=== PATIENT | female | born 1950 | race Hispanic/Latino ===

== ENCOUNTER 2018-03-31 13:29 | Inpatient (IN) | payer OTHER, SELFPAY ==
[2018-03-31 14:16] LABS: Protime INR 1.03
[2018-03-31 14:22] LABS: Absolute Lymphocytes (CBC) 1.8 K/uL (0.7-4.9); Absolute Monocytes 0.4 K/uL (0.1-1.3); Absolute Neutrophil 4.4 K/uL (1.8-8.0); Basophils % 1.2 % (0-1.3); Eosinophils % 1.7 % (0-4.4); Hematocrit 33.9 % (36.0-45.0); MCH 29.4 pg (27.0-35.0); MCV 86.4 fL (80-100); Monocytes % 5.9 % (3.3-12.3); RBC Red Blood Cell Count 3.92 M/uL (3.86-4.86)
--- NOTE | 2018-03-31 14:23 | RAD REPORT ---
EXAM DESCRIPTION: RAD - Chest Single View - 03/31/2018 2:13 pm CLINICAL HISTORY: Shortness of breath, abdominal swelling COMPARISON: None. TECHNIQUE: AP portable chest image was obtained 1408 hours . FINDINGS: Lung volumes are low. Interstitial markings are prominent. Large pleural effusion is prese nt filling at least half of the left hemithorax. Moderately large right pleural effusion is present. Heart borders are fully obscured by the pleural effusion. Lung field atelectasis is likely evident. U pper lobe vasculature not grossly abnormal. Trachea is midline. No pneumothorax. No gross bony abnorm ality seen. No acute aortic findings suspected. IMPRESSION: Large left-side and moderately large right-sided pleural effusions with lung base atelec tasis. Pleural fluid obscures the heart.
[2018-03-31] MEDS ORDERED: FUROSEMIDE 20 MG/ 2ML VIAL ONE (14:35)
[2018-03-31 14:44] LABS: Albumin 2.7 g/dL (3.4-5.0); Bilirubin Direct 0.1 mg/dL (0-0.2); Bilirubin Total 0.5 mg/dL (0.2-1.0); Magnesium 2.4 mg/dL (1.8-2.4); Potassium 4.2 mmol/L (3.5-5.1); Protein, Total 6.4 g/dL (6.4-8.2)
[2018-03-31 14:50] LABS: Troponin (Emerg Dept Use Only) 0.86 ng/mL (0.0-0.045)
--- NOTE | 2018-03-31 15:26 | EKG ---
Test Date: 2018-03-31 Test Time: 14:17:33 Employment Security Officer: MARIA ELENA MEASUREMENT RESULTS: Intervals: Rate: 68 WI: 156 QRSD: 90 QT: 446 QTc: 474 [place]: P: 53 WI: 156 QRS: -4 T: 147 INTERPRETIVE STATEMENTS: Normal sinus rhythm T wave abnormality, consider lateral ischemia Prolonged QT Abnormal ECG No previous ECG available for comparison Electronically Signed On 03-31-18 15:25:11 CDT by Blaine Fernández
--- NOTE | 2018-03-31 15:40 | RAD REPORT ---
EXAM DESCRIPTION: CT - Thorax Wo Con - 03/31/2018 3:20 pm CLINICAL HISTORY: Abnormal chest film, shortness of breath COMPARISON: Portable chest March 31 TECHNIQUE: Axial 5 mm thick images of the chest were obtained without IV contrast. All CT scans are performed using dose optimization technique as appropriate and may include automated exposure control or mA/KV adjustment according to patient size. FINDINGS: Large left-sided pleural effusion is present occupying 40- 50% of the left hemithorax. Sli ghtly smaller right pleural effusion is present. Bilateral lower lobe complete atelectasis is present . There is partial atelectasis of each upper lobe than the right middle lobe. No focal mass or consol idation of the lung parenchyma. No pleural based mass. No pneumothorax. No abnormal mediastinal or hilar masses or lymphadenopathy seen. No gross aortic or pulmonary artery finding suspected. Mild cardiomegaly with minimal pericardial effusion. No chest wall mass or abnormal axillary lymphadenopathy. No endobronchial lesion. IMPRESSION: Large bilateral pleural effusions, left greater than right with no suspicious mass or in filtrate identifiable. Bilateral lower lobe complete atelectasis with partial atelectasis both upper lobes and the right mid dle lobe.
--- NOTE | 2018-03-31 16:01 | EDPHYS ---
Physician Documentation [facility] Name: Marilyn Cruz Age: 67 yrs Sex: Female : 1950 Arrival Date: 03/31/2018 Time: 13:32 Bed 16 Private MD: None, None ED Physician Andres Saunders HPI: 03/31 13:55 This 67 yrs old Female presents to ER via Wheelchair with complaints of cp Breathing Difficulty. 13:55 The patient has shortness of breath at rest. cp 13:55 Onset: The symptoms/episode began/occurred at an unknown time. and became worse today. cp Duration: The symptoms are continuous, and are steadily getting worse. Associated signs and symptoms: Pertinent negatives: chest pain, productive cough, fever, hemoptysis, vomiting. 13:55 Severity of symptoms: in the emergency department the symptoms are unchanged despite cp home interventions. The patient has been recently seen by a physician: discharged yesterday from [facility] after being admitted for 1 week with similar complaints. Historical: - Allergies: 13:39 No Known Allergies; hb - PMHx: 13:39 Diabetes - NIDDM; hb - PSHx: 13:39 None; hb - Immunization history:: Adult Immunizations up to date. - Social history:: Smoking status: Patient/guardian denies using tobacco. - Ebola Screening: : No symptoms or risks identified at this time. ROS: 14:00 Constitutional: Negative for body aches, chills, fever, poor PO intake. cp 14:00 Eyes: Negative for injury, pain, redness, and discharge. cp 14:00 ENT: Negative for drainage from ear(s), ear pain, sore throat, difficulty swallowing, difficulty handling secretions. 14:00 Cardiovascular: Positive for edema, orthopnea, Negative for chest pain, palpitations. 14:00 Respiratory: Positive for dyspnea on exertion, shortness of breath, at rest. Negative for cough, wheezing. 14:00 Abdomen/GI: Positive for abdominal pain, abdominal distension, Negative for vomiting, diarrhea, anorexia, dysphagia, black/tarry stool, rectal bleeding. 14:00 : Negative for urinary symptoms, vaginal bleeding. 14:00 Skin: Positive for ecchymosis, of the lower abdomen, Negative for cellulitis, diaphoresis. 14:00 Neuro: Negative for altered mental status, headache, syncope, near syncope, weakness. 14:00 All other systems are negative. Exam: 14:05 Constitutional: The patient appears alert, awake, non-diaphoretic, non-toxic, well cp developed, well nourished, in obvious distress, mildly distressed. 14:05 Head/Face: Normocephalic, atraumatic. cp 14:05 Eyes: Periorbital structures: appear normal, Pupils: equal, round, and reactive to light and accomodation, Extraocular movements: intact throughout, Conjunctiva: normal, no exudate, no injection, Sclera: no appreciated abnormality, Lids and lashes: appear normal, bilaterally. 14:05 ENT: External ear(s): are unremarkable, Ear canal(s): are normal, clear, TM's: bulging, is not appreciated, bilaterally, dullness, bilaterally, erythema, is not appreciated, bilaterally, Nose: is normal, Mouth: Lips: moist, Oral mucosa: pink and intact, moist, Posterior pharynx: Airway: no evidence of obstruction, patent, Tonsils: are normal in appearance, Uvula: midline, swelling, is not appreciated, erythema, is not appreciated, exudate, is not appreciated. 14:05 Neck: ROM/movement: is normal, is supple, without pain, no range of motions limitations, no meningismus, no nuchal rigidity. 14:05 Chest/axilla: Inspection: normal, Palpation: is normal, no crepitus, no tenderness. 14:05 Cardiovascular: Rate: normal, Rhythm: regular, Pulses: Pulses are 2+ in right radial artery and left radial artery. Edema: 2+ edema to level of bilateral lower legs, JVD: is not appreciated. 14:05 Respiratory: mild respiratory distress is noted, Respirations: labored breathing, that is mild, accessory muscle usage, is absent, splinting, is not noted, tachypnea, is not appreciated, Breath sounds: decreased breath sounds, that are moderate, are located in both bases, stridor, is not appreciated, wheezing: is not appreciated. 14:05 Abdomen/GI: Inspection: bruising, right lower quadrant and left lower quadrant, distension, that is moderate, Bowel sounds: active, all quadrants, Palpation: soft, in all quadrants, mild abdominal tenderness, in the right lower quadrant and left lower quadrant, rebound tenderness, is not appreciated, voluntary guarding, is not appreciated, involuntary guarding, is not appreciated. 14:05 Back: pain, is absent, ROM is normal. 14:05 Skin: cellulitis, is not appreciated, no rash present. 14:05 Neuro: Orientation: to person, place \T\ time. Mentation: lucid, able to follow commands, Cerebellar function: is grossly normal, Motor: moves all fours, strength is normal, Sensation: no obvious gross deficits. 14:23 ECG was reviewed by the Attending Physician. cp Vital Signs: 13:38 BP 148 / 97; Pulse 65; Resp 20; Temp 98.2; Pulse Ox 87% on R/A; Weight 81.19 kg; Height hj 5 ft. 1 in. (154.94 cm); Pain 0/10; 13:54 BP 190 / 67; Pulse 68; Resp 18; Pulse Ox 96% on 2 lpm NC; hj 14:23 BP 195 / 79; Pulse 69; Resp 18; Pulse Ox 97% on 2 lpm NC; hj 15:10 BP 145 / 80; Pulse 67; Resp 18; Pulse Ox 97% on 2 lpm NC; hj 15:35 BP 191 / 67; Pulse 62; Resp 18; Pulse Ox 97% on 2 lpm NC; hj 16:18 BP 192 / 65; Pulse 65; Resp 18; Pulse Ox 99% on 2 lpm NC; hj 17:03 BP 187 / 69; Pulse 61; Resp 18; Pulse Ox 97% on 2 lpm NC; hj 17:16 BP 183 / 65; Pulse 65; Resp 18; Pulse Ox 97% on 2 lpm NC; hj 18:07 BP 115 / 99; Pulse 65; Resp 18; Pulse Ox 97% on 2 lpm NC; hj 13:38 Body Mass Index 33.82 (81.19 kg, 154.94 cm) MDM: 13:40 Patient medically screened. cp 14:00 Differential diagnosis: CHF exacerbation, Chronic Obstructive Pulmonary Disease cp pneumonia, pulmonary edema, Pulmonary Embolism Unstable Angina. 15:58 Data reviewed: vital signs, nurses notes, lab test result(s), EKG, radiologic studies, cp CT scan, plain films, and as a result, I will admit patient. Test interpretation: by ED physician or midlevel provider: ECG, plain radiologic studies. Counseling: I had a detailed discussion with the patient and/or guardian regarding: the historical points, exam findings, and any diagnostic results supporting the discharge/admit diagnosis, the presence of at least one elevated blood pressure reading (>120/80) during this emergency department visit, lab results, radiology results, the need for further work-up and treatment in the hospital. Physician consultation: Rekha Jamison MD was called at 15:59, was contacted at 15:59, regarding admission, to the telemetry unit. patient's condition. 03/31 13:53 Order name: Basic Metabolic Panel; Complete Time: 14:51 03/31 13:53 Order name: CBC with Diff; Complete Time: 14:50 03/31 13:53 Order name: LFT's; Complete Time: 14:51 03/31 13:53 Order name: Magnesium; Complete Time: 14:51 03/31 13:53 Order name: NT PRO-BNP; Complete Time: 14:51 03/31 13:53 Order name: PT-INR; Complete Time: 14:50 03/31 13:53 Order name: Troponin (emerg Dept Use Only); Complete Time: 14:51 03/31 16:21 Order name: CBC with Automated Diff [facility] 03/31 16:21 Order name: CBC with Automated Diff [facility] 03/31 16:21 Order name: Comprehensive Metabolic Panel [facility] 03/31 16:21 Order name: Comprehensive Metabolic Panel [facility] 03/31 16:21 Order name: Troponin I [facility] 03/31 16:21 Order name: Troponin I [facility] 03/31 16:40 Order name: Thyroid Stimulating Hormone [facility] 03/31 13:53 Order name: XRAY Chest (1 view); Complete Time: 14:50 03/31 13:53 Order name: EKG; Complete Time: 13:54 03/31 13:53 Order name: Cardiac monitoring; Complete Time: 13:53 03/31 13:53 Order name: EKG - Nurse/Tech; Complete Time: 14:03 03/31 13:53 Order name: IV Saline Lock; Complete Time: 13:54 03/31 14:51 Order name: CT Chest Wo Con; Complete Time: 15:44 cp 03/31 16:21 Order name: Thoracentesis [facility] 03/31 16:21 Order name: CONS Physician Consult [facility] 03/31 16:21 Order name: Consistent Carb (ADA) [address] EDMN 03/31 16:21 Order name: NPO EDMN 03/31 16:21 Order name: Echo with Doppler EDMN 03/31 13:53 Order name: Labs collected and sent; Complete Time: 14:00 03/31 13:53 Order name: O2 Per Protocol; Complete Time: 13:54 03/31 13:53 Order name: O2 Sat Monitoring; Complete Time: 13:54 EC:23 Rate is 68 beats/min. Rhythm is regular. NH interval is normal. QRS interval is normal. cp QT interval is normal. T waves are Inverted in leads aVL, V5, V6. Interpreted by me. Reviewed by me. Administered Medications: 14:28 Drug: Lasix 40 mg Route: IVP; Site: right antecubital; hj 14:33 Follow up: Response: No adverse reaction 15:54 Drug: Lovenox 1 mg/kg Route: Sub-Q; Site: right upper arm; hj 16:09 Follow up: Response: No adverse reaction hj 15:54 Drug: Aspirin Chewable Tablet 324 mg Route: PO; hj 16:10 Follow up: Response: No adverse reaction Disposition: 03/31/18 16:01 Hospitalization ordered by Rekha Jamison for Inpatient Admission. Preliminary diagnosis are Unspecified combined systolic (congestive) and diastolic (congestive) heart failure, Elevated Troponin. - Bed requested for Telemetry/MedSurg (Inpatient). - Status is Inpatient Admission. hj - Condition is Stable. - Problem is new. - Symptoms have improved. UTI on Admission? No Addendum: 04/04/2018 17:02 Co-signature as Attending Physician, Andres Saunders MD. g s Signatures: Dispatcher [employer] [facility] JohnieEvelina vizcarra bd Song Deng RN RN hj Page, Corey, PA PA cp Baxter, Heather, RN RN hb Starr, Gregory, MD MD Corrections: (The following items were deleted from the chart) 03/31 14:55 14:51 Thorax W/ Con+CT.RAD.BRZ ordered. [facility] EDMN 16:38 16:21 Thoracentesis ordered. [facility] 16:57 16:01 Hospitalization Ordered by Rekha Jamison MD for Inpatient Admission. Preliminary bd diagnosis is Unspecified combined systolic (congestive) and diastolic (congestive) heart failure; Elevated Troponin. Bed requested for Telemetry/MedSurg (Inpatient). Status is Inpatient Admission. Condition is Stable. Problem is new. Symptoms have improved. UTI on Admission? No. cp 18:51 16:57 03/31/2018 16:01 Hospitalization Ordered by Rekah Jamison MD for Inpatient Admission. Preliminary diagnosis is Unspecified combined systolic (congestive) and diastolic (congestive) heart failure; Elevated Troponin. Bed requested for Telemetry/MedSurg (Inpatient). Status is Inpatient Admission. Condition is Stable. Problem is new. Symptoms have improved. UTI on Admission? No. bd
--- NOTE | 2018-03-31 16:01 | ER ---
Nurse's Notes [facility] Name: Marilyn Cruz Age: 67 yrs Sex: Female : 1950 Arrival Date: 03/31/2018 Time: 13:32 Bed 16 Private MD: None, None Diagnosis: Unspecified combined systolic (congestive) and diastolic (congestive) heart failure;Elevated Troponin Presentation: 03/31 13:37 Presenting complaint: SOB and abdominal swelling x 1 week, worse over last 2 days. hb Denies cough/fever. Transition of care: patient was not received from another setting of care. Onset of symptoms was March 31, 2018. Risk Assessment: Do you want to hurt yourself or someone else? Patient reports no desire to harm self or others. Care prior to arrival: None. 13:37 Method Of Arrival: Wheelchair hb 13:37 Acuity: JAKOB 2 hb 13:42 Initial Sepsis Screen: Does the patient meet any 2 criteria? No. Patient's initial hj sepsis screen is negative. Does the patient have a suspected source of infection? No. Patient's initial sepsis screen is negative. Triage Assessment: 13:41 General: Appears in no apparent distress. uncomfortable, Behavior is calm, cooperative, hj appropriate for age. Respiratory: Reports labored breathing Onset: The symptoms/episode began/occurred 13:52 Pain: Denies pain. hj Historical: - Allergies: 13:39 No Known Allergies; hb - PMHx: 13:39 Diabetes - NIDDM; hb - PSHx: 13:39 None; hb - Immunization history:: Adult Immunizations up to date. - Social history:: Smoking status: Patient/guardian denies using tobacco. - Ebola Screening: : No symptoms or risks identified at this time. Screenin:41 Abuse screen: Denies threats or abuse. Denies injuries from another. Nutritional hj screening: No deficits noted. Tuberculosis screening: No symptoms or risk factors identified. Fall Risk None identified. Assessment: 13:41 Cardiovascular: Rhythm is regular. Respiratory: Airway is patent Respiratory effort is hj labored, Respiratory pattern is 14:22 Reassessment: Patient and/or family updated on plan of care and expected duration. Pain hj level reassessed. Patient is alert, oriented x 3, equal unlabored respirations, skin warm/dry/pink. EKG in room;. 14:36 Reassessment: bed side commode provided at bed side;. hj 14:50 Reassessment: lab alert, trop- 0.86; relayed to provider;. hj 15:12 Reassessment: Patient and/or family updated on plan of care and expected duration. Pain hj level reassessed. Patient is alert, oriented x 3, equal unlabored respirations, skin warm/dry/pink. wheeled to CT; Patient denies pain at this time. 15:35 Reassessment: back from CT:. hj 16:18 Reassessment: Patient and/or family updated on plan of care and expected duration. Pain hj level reassessed. Patient is alert, oriented x 3, equal unlabored respirations, skin warm/dry/pink. Patient states feeling better. Patient states symptoms have improved. 16:38 Reassessment: respiratory paged for BIPAP per Dr. Jamison;. hj 17:00 Reassessment: Patient and/or family updated on plan of care and expected duration. Pain hj level reassessed. Patient is alert, oriented x 3, equal unlabored respirations, skin warm/dry/pink. pt refused BIPAP per respiratory;. 17:15 Reassessment: Patient and/or family updated on plan of care and expected duration. Pain hj level reassessed. Patient is alert, oriented x 3, equal unlabored respirations, skin warm/dry/pink. started calling report and was told floor nurse to call back for report;. 17:30 Reassessment: called 2nd floor for report;. hj 17:45 Reassessment: called floor nurse for report; spoke with charge nurse;. hj 18:00 Reassessment: awaiting call from floor nurse;. hj 18:22 Reassessment: house sup to handle the situation;. hj 18:27 Reassessment: spoke with house sup; house sup to call back;. hj Vital Signs: 13:38 BP 148 / 97; Pulse 65; Resp 20; Temp 98.2; Pulse Ox 87% on R/A; Weight 81.19 kg; Height hj 5 ft. 1 in. (154.94 cm); Pain 0/10; 13:54 BP 190 / 67; Pulse 68; Resp 18; Pulse Ox 96% on 2 lpm NC; hj 14:23 BP 195 / 79; Pulse 69; Resp 18; Pulse Ox 97% on 2 lpm NC; hj 15:10 BP 145 / 80; Pulse 67; Resp 18; Pulse Ox 97% on 2 lpm NC; hj 15:35 BP 191 / 67; Pulse 62; Resp 18; Pulse Ox 97% on 2 lpm NC; hj 16:18 BP 192 / 65; Pulse 65; Resp 18; Pulse Ox 99% on 2 lpm NC; hj 17:03 BP 187 / 69; Pulse 61; Resp 18; Pulse Ox 97% on 2 lpm NC; hj 17:16 BP 183 / 65; Pulse 65; Resp 18; Pulse Ox 97% on 2 lpm NC; hj 18:07 BP 115 / 99; Pulse 65; Resp 18; Pulse Ox 97% on 2 lpm NC; hj 13:38 Body Mass Index 33.82 (81.19 kg, 154.94 cm) hj ED Course: 13:32 Patient arrived in ED. sb2 13:32 None, None is Private Physician. sb2 13:38 Triage completed. hb 13:39 Arm band placed on left wrist. hb 13:40 Jerry Melvin PA is PHCP. cp 13:40 Andres Saunders MD is Attending Physician. cp 13:41 Song Deng, ILENE is Primary Nurse. hj 13:42 Patient has correct armband on for positive identification. Placed in gown. Bed in low hj position. Call light in reach. Side rails up X 1. 13:52 Initial lab(s) drawn, by me. Inserted saline lock: 22 gauge in right antecubital area, hj using aseptic technique. Blood collected. 14:11 XRAY Chest (1 view) In Process Unspecified. EDMS 14:11 X-ray completed. Portable x-ray completed in exam room. jr1 14:33 EKG done, by meteorological technician. reviewed by Jerry MESSINA. sm3 15:04 Radiology exam delayed due to patient using bathroom at this time. vr 15:19 CT completed. Patient tolerated procedure well. Patient moved back from CT. nj 15:20 CT Chest Wo Con In Process Unspecified. EDMS 15:59 Rekha Jamison MD is Hospitalizing Provider. cp 18:50 No provider procedures requiring assistance completed. Patient admitted, IV remains in hj place. intact. Administered Medications: 14:28 Drug: Lasix 40 mg Route: IVP; Site: right antecubital; hj 14:33 Follow up: Response: No adverse reaction hj 15:54 Drug: Lovenox 1 mg/kg Route: Sub-Q; Site: right upper arm; hj 16:09 Follow up: Response: No adverse reaction hj 15:54 Drug: Aspirin Chewable Tablet 324 mg Route: PO; hj 16:10 Follow up: Response: No adverse reaction Outcome: 16:01 Decision to Hospitalize by Provider. cp 18:50 Admitted to Med/surg accompanied by tech, family with patient, via wheelchair, room hj 212, with oxygen, with chart, Report called to ILENE Petersen 18:50 Condition: stable 18:50 Instructed on the need for admit, Demonstrated understanding of instructions. 18:51 Patient left the ED. Signatures: Dispatcher [employer] EDMS France Alvarado Victoria vr Joaquin, Henry RN RN Jerry Melvin PA PA cp Baxter, Heather, RN RN Jevon Tello Sheri sb2 Hue Smith 3 Corrections: (The following items were deleted from the chart) 13:39 13:37 Presenting complaint: SOB x 1 week, worse over last 2 days. Denies cough/fever hb hb 13:57 13:41 Cardiovascular: Rhythm is [facility] 15:36 15:35 Pulse 62bpm; Resp 18bpm; Pulse Ox 97% 2 lpm Nasal Cannula; [facility] 15:56 13:38 BP 148 / 97; Pulse 65bpm; Resp 20bpm; Pulse Ox 87% RA; Temp 98.2F; Pain 0/10; hb 16:18 15:41 Blood Glucose: Notes=post D50 1/2 amp;, Blood Glucose Jhpduka=491 mg/dL. [facility]
[2018-03-31] MEDS ORDERED: ASPIRIN 81 MG CHEWABLE TABLET ONE (16:10)
[2018-03-31] MEDS ORDERED: ENOXAPARIN 80 MG/0.8 ML SQ ONE (16:10)
[2018-03-31] MEDS ORDERED: ACETAMINOPHEN 500 MG TAB PO PRN (16:11)
[2018-03-31] MEDS ORDERED: ONDANSETRON 4 MG/2 ML VIAL IV PRN (16:11)
[2018-03-31] MEDS ORDERED: D50W 25 GM/50 ML SYRINGE IV PRN (16:18)
[2018-03-31] MEDS ORDERED: GLUCAGON 1 MG/VIAL IM PRN (16:18)
[2018-03-31] MEDS ORDERED: ENOXAPARIN 30 MG/0.3 ML SQ SCH (17:00)
[2018-03-31] MEDS ORDERED: FUROSEMIDE 40 MG/4 ML VIAL IV SCH ×2 (17:00)
[2018-03-31] MEDS: ENOXAPARIN 30 MG/0.3 ML SQ SCH (18:00)
[2018-03-31] MEDS: INSULIN -REGULAR HUMAN 50 UNIT/0.5 ML ML SQ SCH ×2 (19:26→20:34)
[2018-03-31] MEDS ORDERED: HYDRALAZINE HCL 20 MG/ML VIAL IV ONE (19:31)
[2018-03-31 20:28] VITALS: BMI 35.7
[2018-03-31] MEDS: METOPROLOL TAR 25 MG TAB PO SCH (20:36)
[2018-03-31] MEDS: LOSARTAN POTASSIUM 50 MG TABLET PO SCH (20:40)
--- NOTE | 2018-04-01 03:56 | HP ---
Date of Admission: 03/31/2018 Primary Care Physician: The patient goes to the [facility]. Consultants: Dr. Fernández, Cardiology and Dr. Casanova, Pulmonology. Chief Complaint: Shortness of breath. Code Status: Full. History Of Present Illness: The patient is a 67-year-old female with past medical history of diabete s mellitus type 2, hypertension, congestive heart failure, hyperlipidemia, who was recently at [facility] for a week, discharged yesterday, comes in with shortness of breath and dyspnea upon exer tion. The patient states she is unable to lay flat. She states that she is not on any diuretics. T he patient's symptoms are constant, moderate, and progressively worsening. She also reports some per ipheral edema along with distention of her abdomen. Denies any chest pain. No fevers, chills, cough , or sputum production. The patient upon arrival was hypoxic at around 87%, placed on nasal cannula and improved to 97% on 2 L. Her workup did show troponin of 0.86. BNP was elevated at 5000. WBC wa s normal. Creatinine was elevated at 1.9 with unknown baseline, however, back in 2014 was normal cre atinine. Her imaging studies showed large bilateral pleural effusions. The patient was then referre d for admission. When seen in the ER, she was awake, alert, oriented x3, somewhat tearful and asking to have her fluid taken off. Otherwise, awake, alert, and oriented x3. Past Medical History: Diabetes mellitus type 2, essential hypertension, congestive heart failure, un known EF, hyperlipidemia. Past Surgical History: The patient denies any surgeries. Allergies: NO KNOWN DRUG ALLERGIES. Medications: List reviewed. Social History: The patient denies any tobacco use, alcohol use, or illicit drug use. The patient i s , independent in her activities of daily living. Family History: The patient denies any family history of diabetes or hypertension. Review of Systems: An 11-point system reviewed, negative except as per HPI. Physical Examination: Vital Signs: Blood pressure 148/97, respirations 20, pulse 65, temperature 98.2, O2 87% on room air, improved to 96% on 2 L via nasal cannula. General: Awake, alert, oriented x3, in some mild respiratory distress. HEENT: Normocephalic, atraumatic. PERRLA. EOMI. Moist mucous membranes. Oropharynx is clear. Po or dentition. Conjunctivae anicteric. Neck: Supple. JVD distention present. Trachea is midline. CV: S1, S2. No murmurs. Regular rate and rhythm. Peripheral pulses present. Respiratory: Diminished breath sounds bilateral bases. Some rales heard at the apices. No wheezing . No stridor. The patient is tachypneic, use of accessory muscles. Gastrointestinal: Abdomen is soft, nontender. Mild distention. Positive bowel sounds. No guarding or rigidity. Extremities: No clubbing, cyanosis. Peripheral edema is present bilaterally 2+ DP. No calf tendern ess. Neuro: Cranial nerves 2 through 12 intact grossly. No focal neurological deficit. Speech is normal . Strength is 5/5 bilateral upper and lower extremities. Speech is normal. Skin: No rashes. Normal skin turgor. The patient does have some ecchymosis in her abdomen from rec ent shots. Psych: Mood is depressed. Affect is congruent with mood. Insight and judgment are fair. Laboratory Data: Sodium 144, potassium 4.2, chloride 111, CO2 26, BUN 34, creatinine 1.9, glucose 13 5, calcium 8.3, magnesium 2.4. Troponin 0.86. BNP 5083. Albumin 2.7. WBC 6.8, H and H 11.5 and 33 .9, platelets 224. INR 1.03. CT scan of the chest personally reviewed shows large bilateral pleural effusions, left greater than right with no suspicious mass or infiltrate of identifiable bilateral l ower lobe complete atelectasis with partial atelectasis of both upper lobes and right middle lobe. C hest x-ray shows large left-sided and moderately large right-sided pleural effusions with lung base a telectasis, pleural fluid obscures the heart. EKG shows normal sinus rhythm, rate of 68, T-wave abno rmality, prolonged QT. Assessment And Plan: A 67-year-old female with: 1.Acute respiratory distress with hypoxia, improved with supplemental oxygen via nasal cannula. The patient is refusing BiPAP at this time. She has been counseled, understands risks. We will place o n continuous pulse ox and may need to be on BiPAP if her condition deteriorates regardless. This is secondary to volume overload from congestive heart failure. The patient had recent hospitalization i n [facility] for similar issues. 2.Acute congestive heart failure, likely diastolic dysfunction, unknown ejection fraction. We will obtain echocardiogram. Chest x-ray and CT shows large effusions. BNP is elevated. We will start on congestive heart failure guidelines. Continue Lasix IV. We will hold off on SHAMIKA inhibitor due to e levated creatinine, which may be acute. 3.Acute versus pqmvy-ww-lpanmew kidney injury. Avoid NSAIDs and nephrotoxins. May need Nephrology if does not improve. 4.Essential hypertension. Resume home medications as appropriate. 5.Diabetes mellitus type 2 with hyperglycemia, non-insulin requiring. We will continue Accu-Cheks. 6.Elevated troponin level secondary to demand mismatch and acute congestive heart failure. Dr. Anna bundy has been consulted. We will repeat troponin level and monitor. No acute ST-elevation on EKG. 7.Bilateral large pleural effusions secondary to congestive heart failure. Dr. Casanova consulted, does not recommend thoracentesis at this time. We will continue to monitor with serial x-ray. Stric t I and Os, daily weights. The patient is unable to ambulate due to significant dyspnea upon exertio n. We will place Canales catheter for accurate I's and O's. We will discontinue in the next 24 to 48 hours. 8.Gastrointestinal and deep venous thrombosis prophylaxis with PPI and Lovenox renally dosed. Plan: Admit the patient to Med-Surg, place as inpatient. /RENÉ Voice ID: [id number]
[2018-04-01 05:23] LABS: Absolute Lymphocytes (CBC) 1.5 K/uL (0.7-4.9); Absolute Monocytes 0.4 K/uL (0.1-1.3); Absolute Neutrophil 4.8 K/uL (1.8-8.0); Basophils % 1.3 % (0-1.3); Eosinophils % 2.2 % (0-4.4); Hematocrit 32.1 % (36.0-45.0); MCH 30.5 pg (27.0-35.0); MCV 87.2 fL (80-100); MPV 9.5 fL (7.6-11.3); Monocytes % 5.2 % (3.3-12.3); RBC Red Blood Cell Count 3.68 M/uL (3.86-4.86)
[2018-04-01 05:39] LABS: Albumin 2.5 g/dL (3.4-5.0); Bilirubin Total 0.5 mg/dL (0.2-1.0)
[2018-04-01 05:55] LABS: Thyroid Stimulating Hormone 4.98 uIU/mL (0.360-3.740)
[2018-04-01] MEDS: METOPROLOL TAR 25 MG TAB PO SCH ×2 (06:20→17:47)
[2018-04-01] MEDS: INSULIN -REGULAR HUMAN 50 UNIT/0.5 ML ML SQ SCH ×4 (07:30→21:00)
[2018-04-01 07:40] LABS: Urine Appearance CLEAR; Urine Bilirubin NEGATIVE (NEG); Urine Blood TRACE (NEG); Urine Color YELLOW; Urine Glucose NEGATIVE (NEG); Urine Protein 2+ (NEG); Urine Urobilinogen 0.2 mg/dL (0.2-1.0)
[2018-04-01 07:48] LABS: Urine Microscopic Reflex ORDER UMIC
[2018-04-01 07:57] LABS: Urine Bacteria <20 /HPF (<20); Urine Culture Reflex Order NOT NEEDED; Urine RBC <5 /HPF (NONE SEEN)
[2018-04-01] MEDS: LEVOTHYROXINE SOD 0.025 MG TAB PO SCH (08:54)
[2018-04-01] MEDS: LOSARTAN POTASSIUM 50 MG TABLET PO SCH (08:55)
[2018-04-01] MEDS: VALSARTAN 80 MG TAB PO SCH (09:29)
[2018-04-01] MEDS: FUROSEMIDE 40 MG/4 ML VIAL IV SCH ×2 (09:30→16:36)
[2018-04-01] MEDS ORDERED: PNEUMOCOCCAL VACCINE 0.5 ML IMVAC ONE (12:00)
--- NOTE | 2018-04-01 13:31 | CON ---
Ms. Cruz comes to the hospital, very frustrated. She wants to get rid of the fluid she sees in her legs. She spent more than a week at a hospital in [place], apparently left the hospital with some m edications, but does not seem to be taking those. She is very adamant that her heart is fine, she ju st accumulates fluid. I am not sure what the exact situation is, but I believe the patient has some mental impairment of some kind, emotional or psychiatric or perhaps organic that makes her very maggy nt to insist that her heart is fine. It really looks like she has a cardiomyopathy with cardiomegaly , bilateral pleural effusions, congestive heart failure on her x-ray. She has elevated BNP, elevated troponins, all are consistent with a lot of myocardial strain, so the medical diagnosis is heart chari kaityre. The patient refuses most tests. She does agree to get diuretics intravenously and she agrees to get an echocardiogram. 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 We are unable to tell if she has had an echo or cardiac cath or any similar tests on her heart while she was at the hospital at [facility]. I thin k there is an effort to get records from [facility]. If possible that would be very useful. Thank you very much for your kind referral of Ms. Cruz. I will follow her with you. GIFTY Voice ID: [id number] Report ID: [id number]
--- NOTE | 2018-04-01 15:53 | PN ---
Date of Progress Note: 04/01/2018 Subjective: The patient seen and examined. Chart reviewed and case discussed with RN and Dr. Cedeno as well as Dr. Casanova. The patient is doing better, was refusing BiPAP yesterday and today keeps asking for her fluid to be taken off including her lunch to be taken off. I explained to her that we are diuresing her with Lasix. She voiced understanding. All questions answered. Treatment plan ex plained. Review of Systems: Negative except as above. Medications: List reviewed. Physical Examination: Vital Signs: Temperature 98.5, heart rate 56, blood pressure 181/74, respirations 20, OS 98% on 2 L via nasal cannula. General: Awake, alert, oriented x3. Some mild respiratory distress. Elderly female, obese. CV: S1, S2. No murmurs. Pulses present. Respiratory: Diminished breath sounds bilaterally. No wheezing. The patient is slightly tachypneic . Gastrointestinal: Abdomen is soft, nontender, nondistended. Positive bowel sounds. No guarding o r rigidity. Extremities: No clubbing, cyanosis. The patient does have edema of the lower extremities 2+ bilater ally. Neurologic: Nonfocal. Psych: Mood is labile. Affect is somewhat dysphoric. Insight and judgment are fair. Laboratory Data: Sodium 142, potassium 4, chloride 110, CO2 23, BUN 31, creatinine 1.7, glucose 96, calcium 8.3. Troponin 0.86, 0.79, albumin 2.5. TSH is 4.98, free T4 0.82. WBC 6.9, H and H 11.2, 3 2.1, platelets 201. Assessment And Plan: A 67-year-old female with: 1.Acute respiratory distress with hypoxia, improving with supplemental oxygen. The patient refusing BiPAP at this time. Appreciate Dr. Casanova's input. Likely secondary to congestive heart failure exacerbation and pleural effusions. 2.Acute congestive heart failure, likely diastolic dysfunction, unknown ejection fraction. Cardiogr am pending. The patient does have some large effusions bilaterally. We will continue with IV diures is, congestive heart failure guidelines. 3.Acute versus [id number]-wfggfbr kidney injury. Avoid NSAIDs and nephrotoxins. Creatinine is improv ing. We will continue to monitor. 4.Elevated troponin level likely secondary to acute congestive heart failure exacerbation. Apprecia te Cardiology input. Repeat level trending down. 5.Essential hypertension, uncontrolled. We will adjust medications. 6.Diabetes mellitus type 2 with hyperglycemia, non-insulin requiring. Continue Accu-Chek. 7.Bilateral large pleural effusions secondary to congestive heart failure. Continue diuresis. Lucy tor fluid balance. 8.Gastrointestinal and deep venous thrombosis prophylaxis with PPI and Lovenox, renally dosed. SA/MODL Voice ID: [id number] Report ID: [id number]
[2018-04-01] MEDS: ENOXAPARIN 30 MG/0.3 ML SQ SCH (16:38)
[2018-04-02] MEDS: LEVOTHYROXINE SOD 0.025 MG TAB PO SCH (05:13)
[2018-04-02] MEDS: METOPROLOL TAR 25 MG TAB PO SCH ×2 (05:14→17:51)
[2018-04-02 05:17] LABS: Absolute Lymphocytes (CBC) 2.2 K/uL (0.7-4.9); Absolute Monocytes 0.5 K/uL (0.1-1.3); Absolute Neutrophil 3.3 K/uL (1.8-8.0); Basophils % 1.1 % (0-1.3); Eosinophils % 2.2 % (0-4.4); Hematocrit 29.2 % (36.0-45.0); Lymphocytes % 35.3 % (15.3-44.8); Monocytes % 7.4 % (3.3-12.3)
[2018-04-02 05:36] LABS: Albumin 2.2 g/dL (3.4-5.0); Bilirubin Total 0.5 mg/dL (0.2-1.0); Potassium 3.6 mmol/L (3.5-5.1); Protein, Total 5.2 g/dL (6.4-8.2)
[2018-04-02] MEDS: INSULIN -REGULAR HUMAN 50 UNIT/0.5 ML ML SQ SCH ×4 (07:30→21:00)
[2018-04-02] MEDS: FUROSEMIDE 40 MG/4 ML VIAL IV SCH ×2 (08:12→16:39)
[2018-04-02] MEDS: VALSARTAN 80 MG TAB PO SCH (08:12)
--- NOTE | 2018-04-02 08:28 | P.CNS ---
Date of Consult: 04/01/18 Reason for Consult: Bilateral pleural effusions possible CHF Chief Complaint: Shortness of breath History of Present Illness: Patient is 67 years of age a pleasant lady with diabetes hypertension admitted with worsening dyspnea for the past 2 days admitted with hypoxemia and bilateral pleural effusions. Patient speaks limited Telugu also complaining of some orthopnea as not take any diuretics at home also complain of some swelling of her legs doing much better since admission and since she was given diuretics and BiPAP at the time of my evaluation patient was doing well off oxygen History of diabetes and hypertension T Allergies No Known Drug Allergies Allergy (Verified 03/31/18 19:42) Unknown Home Medications: Carvedilol [Coreg*] 1 tab PO DAILY 04/02/18 Dapagliflozin Propanediol [Farxiga] 1 tab PO DAILY 04/02/18 Lisinopril/Hydrochlorothiazide [Zestoretic 20-25 mg Tablet] 1 tab PO DAILY 04/02 - Past Medical/Surgical History Diabetic: No -: DM -: HTN - Social History Alcohol use: No CD- Drugs: No Caffeine use: Yes Place of Residence: Home Review of Systems 10-point ROS is otherwise unremarkable Physical Examination Temp Pulse Resp BP Pulse Ox 98.2 F 64 18 195/79 H 96 04/02/18 03:45 04/02/18 08:12 04/02/18 03:45 04/02/18 08:12 04/02/18 03:45 General: Alert, Oriented x3 HEENT: Atraumatic Neck: Supple Respiratory: Clear to auscultation bilaterally Cardiovascular: No edema, Normal S1 S2 Gastrointestinal: Normal bowel sounds, Soft and benign - Problems (1) CHF (congestive heart failure) Onset Date: 04/01/18 Current Visit: Yes Status: Acute Plan: Patient is 67 years of age admitted with acute shortness of breath bilateral pleural effusions which are roughly symmetrical most likely this is congestive heart failure echocardiogram is pending continue with diuretics BiPAP as needed thoracenteses not indicated at this present moment patient also has renal failure BNP elevated mild normocytic anemia patient probably has diabetic nephropathy renal ultrasound nephrology consult ovoid Domingo inhibitors for now patient's blood pressure is elevated at [facility] patient's renal function is improving Qualifiers: Heart failure type: unspecified
--- NOTE | 2018-04-02 08:36 | P.CNS ---
Date of Consult: 04/02/18 Reason for Consult: KEY/ CKD Requesting Physician: Rekha Jamison Chief Complaint: Shortness of breath History of Present Illness: The patient is a 67-year-old female with past medical history of diabetes mellitus type 2, hypertension, congestive heart failure, hyperlipidemia, who was recently at [facility] for a week, discharged yesterday, comes in with shortness of breath and dyspnea upon exertion. The patient states she is unable to lay flat. She states that she is not on any diuretics. The patient' s symptoms are constant, moderate, and progressively worsening. She also reports some peripheral edema along with distention of her abdomen. Denies any chest pain. No fevers, chills, cough, or sputum production. The patient upon arrival was hypoxic at around 87%, placed on nasal cannula and improved to 97% on 2 L. Her workup did show troponin of 0.86. BNP was elevated at 5000. WBC was normal. Creatinine was elevated at 1.9 with unknown baseline, however, back in 2014 was normal creatinine. Her imaging studies showed large bilateral pleural effusions. The patient was then referred for admission. When seen in the ER, she was awake, alert, oriented x3, somewhat tearful and asking to have her fluid taken off. 13:55 This 67 yrs old Female presents to ER via Wheelchair with complaints of cp Breathing Difficulty. 13:55 The patient has shortness of breath at rest. cp 13:55 Onset: The symptoms/episode began/occurred at an unknown time. and became worse today. cp Duration: The symptoms are continuous, and are steadily getting worse. Associated signs and symptoms: Pertinent negatives: chest pain, productive cough, fever, hemoptysis, vomiting. 13:55 Severity of symptoms: in the emergency department the symptoms are unchanged despite cp home interventions. The patient has been recently seen by a physician: discharged yesterday from [facility] after being admitted for 1 week with similar complaints. Allergies No Known Drug Allergies Allergy (Verified 03/31/18 19:42) Unknown Home medications list reviewed: Yes Home Medications: Carvedilol [Coreg*] 1 tab PO DAILY 04/02/18 Dapagliflozin Propanediol [Farxiga] 1 tab PO DAILY 04/02/18 Lisinopril/Hydrochlorothiazide [Zestoretic 20-25 mg Tablet] 1 tab PO DAILY 04/02 - Past Medical/Surgical History Diabetic: No -: DM -: HTN - Social History Alcohol use: No CD- Drugs: No Caffeine use: Yes Place of Residence: Home Review of Systems 10-point ROS is otherwise unremarkable General: Weakness, Malaise Respiratory: SOB with Excertion Cardiovascular: Edema Neurological: Weakness Physical Examination Temp Pulse Resp BP Pulse Ox 98.2 F 64 18 195/79 H 96 04/02/18 03:45 04/02/18 08:12 04/02/18 03:45 04/02/18 08:12 04/02/18 03:45 General: Oriented x3, Cooperative HEENT: Normocephalic, Mucous membr. moist/pink Neck: Supple Respiratory: Clear to auscultation bilaterally, Normal air movement Cardiovascular: Regular rate/rhythm, No rubs, Edema Gastrointestinal: Soft and benign, Non-distended, No guarding Musculoskeletal: No clubbing, No contractures Integumentary: No rashes, No cyanosis Neurological: Normal speech Blood work reviewed in the chart. Hgb 10.2; Cr 1.70; Alb 2.2 Imagings Data: EXAM DESCRIPTION: CT - Thorax Wo Con - 03/31/2018 3:20 pm CLINICAL HISTORY: Abnormal chest film, shortness of breath COMPARISON: Portable chest March 31 TECHNIQUE: Axial 5 mm thick images of the chest were obtained without IV contrast. All CT scans are performed using dose optimization technique as appropriate and may include automated exposure control or mA/KV adjustment according to patient size. FINDINGS: Large left-sided pleural effusion is present occupying 40- 50% of the left hemithorax. Slightly smaller right pleural effusion is present. Bilateral lower lobe complete atelectasis is present. There is partial atelectasis of each upper lobe than the right middle lobe. No focal mass or consolidation of the lung parenchyma. No pleural based mass. No pneumothorax No abnormal mediastinal or hilar masses or lymphadenopathy seen. No gross aortic or pulmonary artery finding suspected. Mild cardiomegaly with minimal pericardial effusion. No chest wall mass or abnormal axillary lymphadenopathy. No endobronchial lesion. IMPRESSION: Large bilateral pleural effusions, left greater than right with no suspicious mass or infiltrate identifiable. Bilateral lower lobe complete atelectasis with partial atelectasis both upper lobes and the right middle lobe. HEIGHT: 5 ft 0 in WEIGHT: 180 lb 1.6 oz DATE OF STUDY: 04/02/[address]: Rekha Jamison MD 2-DIMENSIONAL: YES M.MODE: YES DOPPLER: YES COLOR FLOW: YES TDS: NO PORTABLE: NO DEFINITY: NO BUBBLE STUDY: NO DIAGNOSIS: CONGESTIVE HEART FAILURE CARDIAC HISTORY: CATHERIZATION: NO SURGERY: NO PROSTHETIC VALVE: NO PACEMAKER: NO MEASUREMENTS (cm) DIASTOLIC (NORMALS) SYSTOLIC (NORMALS) IVSd 1.2 (0.6-1.2) LA Diam 3.7 (1.9-4.0) LVEF 77% LVIDd 4.9 (3.5-5.7) LVIDs 2.6 (2.0-3.5) %FS 46% LVPWd 1.3 (0.6-1.2) Ao Diam 2.6 (2.0-3.7) 2 DIMENSIONAL ASSESSMENT: RIGHT ATRIUM: NORMAL LEFT ATRIUM: NORMAL RIGHT VENTRICLE: NORMAL LEFT VENTRICLE: MILD LEFT VENTRICULAR HYPERTROPHY TRICUSPID VALVE: NORMAL MITRAL VALVE: NORMAL PULMONIC VALVE: NORMAL AORTIC VALVE: SCLEROSIS PERICARDIAL EFFUSION: NONE AORTIC ROOT: NORMAL LEFT VENTRICULAR WALL MOTION: LEFT VENTRICULAR COMPLIANCE. DOPPLER/COLOR FLOW: MILD TRICUSPID REGURGITATION. COMMENTS: MILD TRICUSPID REGURGITATION. AORTIC SCLEROSIS. LEFT VENTRICULAR HYPERTROPHY. DECREASED LEFT VENTRICULAR COMPLIANCE. NORMAL EJECTION FRACTION. EXAM DESCRIPTION: US - Renal Ultrasound-Complete - 04/02/2018 9:48 am CLINICAL HISTORY: Renal failure COMPARISON: CT imaging January 2015 FINDINGS: The right kidney measures 9.8 x 4.8 x 5.9 cm. The left kidney measures 11.3 x 6.0 x 5.6 cm. Renal cortical thickness and echogenicity are normal. No hydronephrosis or suspicious renal mass. No bladder wall thickening or mass. No intraluminal stone or mass. IMPRESSION: No hydronephrosis or suspicious renal mass. Conclusions/Impression: A/ KEY likely CRS. CKD III with proteinuria. DM II with CKD. HTN with CKD. A/C Diastolic CHF. Anemia in chronic illness. Hypocalcemia. Moderate Malnutrition. P/ Continue current POC and Medications. Continue Lasix and start spironolactone. Give a dose of metolazone. No NSAIDs. Low sodium diet. AM labs. Daily weight. Thank you kindly for the consultation.
[2018-04-02] MEDS ORDERED: POTASSIUM CL SA 10 MEQ TAB PO ONE (08:47)
--- NOTE | 2018-04-02 09:46 | RAD REPORT ---
EXAM DESCRIPTION: Emery Greene And Anam (2 Views)04/02/2018 9:38 am CLINICAL HISTORY: Shortness of breath COMPARISON: 03/31/2018 FINDINGS: Bilateral pleural effusions appear mildly diminished in size. Bibasilar atelectasis is see n. Upper lobes are clear. Heart remains enlarged IMPRESSION: Decrease in size of moderate bilateral pleural effusions. Bibasilar atelectasis is seen
[2018-04-02] MEDS: SPIRONOLACTONE 25 MG TABLET PO SCH (10:06)
[2018-04-02] MEDS: AMLODIPINE 5 MG TAB PO SCH (10:07)
[2018-04-02] MEDS: METOLAZONE 5 MG TABLET PO SCH (10:07)
[2018-04-02] MEDS: VITAMIN D 5,000 UNIT CAP PO SCH (10:08)
--- NOTE | 2018-04-02 10:28 | RAD REPORT ---
EXAM DESCRIPTION: US - Renal Ultrasound-Complete - 04/02/2018 9:48 am CLINICAL HISTORY: Renal failure COMPARISON: CT imaging January 2015 FINDINGS: The right kidney measures 9.8 x 4.8 x 5.9 cm. The left kidney measures 11.3 x 6.0 x 5.6 c m. Renal cortical thickness and echogenicity are normal. No hydronephrosis or suspicious renal mass. No bladder wall thickening or mass. No intraluminal stone or mass. IMPRESSION: No hydronephrosis or suspicious renal mass. No other significant findings.
--- NOTE | 2018-04-02 14:43 | ECHO ---
HEIGHT: 5 ft 0 in WEIGHT: 180 lb 1.6 oz DATE OF STUDY: 04/02/[address]: Rekha Jamison MD 2-DIMENSIONAL: YES M.MODE: YES DOPPLER: YES COLOR FLOW: YES TDS: NO PORTABLE: NO DEFINITY: NO BUBBLE STUDY: NO DIAGNOSIS: CONGESTIVE HEART FAILURE CARDIAC HISTORY: CATHERIZATION: NO SURGERY: NO PROSTHETIC VALVE: NO PACEMAKER: NO MEASUREMENTS (cm) DIASTOLIC (NORMALS) SYSTOLIC (NORMALS) IVSd 1.2 (0.6-1.2) LA Diam 3.7 (1.9-4.0) LVEF 77% LVIDd 4.9 (3.5-5.7) LVIDs 2.6 (2.0-3.5) %FS 46% LVPWd 1.3 (0.6-1.2) Ao Diam 2.6 (2.0-3.7) 2 DIMENSIONAL ASSESSMENT: RIGHT ATRIUM: NORMAL LEFT ATRIUM: NORMAL RIGHT VENTRICLE: NORMAL LEFT VENTRICLE: MILD LEFT VENTRICULAR HYPERTROPHY TRICUSPID VALVE: NORMAL MITRAL VALVE: NORMAL PULMONIC VALVE: NORMAL AORTIC VALVE: SCLEROSIS PERICARDIAL EFFUSION: NONE AORTIC ROOT: NORMAL LEFT VENTRICULAR WALL MOTION: LEFT VENTRICULAR COMPLIANCE. DOPPLER/COLOR FLOW: MILD TRICUSPID REGURGITATION. COMMENTS: MILD TRICUSPID REGURGITATION. AORTIC SCLEROSIS. LEFT VENTRICULAR HYPERTROPHY. DECREASED LEFT VENTRICULAR COMPLIANCE. NORMAL EJECTION FRACTION. TECHNOLOGIST: JOJO PACHECO
--- NOTE | 2018-04-02 16:00 | PN ---
Date of Progress Note: 04/02/2018 Subjective: The patient seen and examined, chart reviewed and case discussed with RN and Dr. Fernández . The patient has some barrier to communication. Explained multiple times regarding her treatment p rambo and overall prognosis. The patient does not seem to understand that her heart is related to her pulmonary edema. The patient has been refusing the echocardiogram multiple times. Records have been requested from [facility] [place]. Review of Systems: Negative except as above. Medications: List reviewed. Physical Examination: Vital Signs: Blood pressure 195/79, respirations 18, temperature 98.2, heart rate 56, O2 96% on 2 L via nasal cannula. General: Awake, alert, oriented x3, not in acute distress. Elderly female, obese. CV: S1, S2. Regular rate and rhythm. Peripheral pulses present. Respiratory: Diminished breath sounds at the bases. No wheezing or stridor. Gastrointestinal: Abdomen is soft, nontender, nondistended. Positive bowel sounds. Extremities: No clubbing, cyanosis. The patient does have 2+ lower extremity edema bilaterally. Neurologic: Nonfocal. Laboratory Data: Sodium 143, potassium 3.6, chloride 107, CO2 27, BUN 29, creatinine 1.7, glucose 10 0, calcium 8, albumin 2.2. WBC 6.2, H and H 10.2, 29.2, platelets 194. Renal ultrasound shows no hy dronephrosis or suspicious renal mass. Assessment And Plan: 1.A 67-year-old female with acute respiratory distress with hypoxia, improving with supplemental oxy gen. The patient refused BiPAP, improving with diuresis. Pulmonology and Cardiology on board. The patient's symptoms are secondary to congestive heart failure exacerbation and pleural effusion. 2.Acute congestive heart failure, likely diastolic dysfunction, unknown ejection fraction. The samanta ent has been refusing echocardiogram, however, she has finally agreed after communication with [facility] personnel including nursing staff, development technician, myself, and the consultants. We will continue IV diu resis CHF guidelines. 3.Bilateral pleural effusion secondary to above. Continue diuresis. Repeat chest x-ray. 4.Acute versus acute on chronic kidney injury. Avoid NSAIDs and nephrotoxins. Creatinine improved slightly. Appreciate Dr. Chan's input. Renal ultrasound is unremarkable. 5.Elevated troponin level secondary to acute congestive heart failure exacerbation. No chest pain. 6.Essential hypertension, uncontrolled. Medications have been adjusted. Continue to monitor closel y. 7.Diabetes mellitus type 2 with hyperglycemia, non-insulin requiring. Continue Accu-Cheks. 8.Gastrointestinal and deep venous thrombosis prophylaxis with PPI and Lovenox, renally dosed. /RENÉ Voice ID: [id number] Report ID: [id number]
[2018-04-02] MEDS: ENOXAPARIN 30 MG/0.3 ML SQ SCH (16:38)
[2018-04-03] MEDS: METOPROLOL TAR 25 MG TAB PO SCH (04:59)
[2018-04-03] MEDS: LEVOTHYROXINE SOD 0.025 MG TAB PO SCH (05:00)
[2018-04-03 05:14] VITALS: O2SAT 92
[2018-04-03 06:06] LABS: Absolute Lymphocytes (CBC) 2.1 K/uL (0.7-4.9); Absolute Monocytes 0.5 K/uL (0.1-1.3); Absolute Neutrophil 3.4 K/uL (1.8-8.0); Eosinophils % 2.2 % (0-4.4); Hematocrit 30.9 % (36.0-45.0); MCH 29.6 pg (27.0-35.0); MCV 85.2 fL (80-100); MPV 9.7 fL (7.6-11.3); Monocytes % 7.8 % (3.3-12.3); RBC Red Blood Cell Count 3.62 M/uL (3.86-4.86)
[2018-04-03 06:22] LABS: Albumin 2.3 g/dL (3.4-5.0); Bilirubin Total 0.4 mg/dL (0.2-1.0); Potassium 3.2 mmol/L (3.5-5.1); Protein, Total 5.5 g/dL (6.4-8.2)
[2018-04-03] MEDS: INSULIN -REGULAR HUMAN 50 UNIT/0.5 ML ML SQ SCH ×2 (07:30→11:30)
[2018-04-03] MEDS ORDERED: POTASSIUM CL SA 10 MEQ TAB PO ONE (08:53)
[2018-04-03] MEDS: METOLAZONE 5 MG TABLET PO SCH (09:00)
[2018-04-03] MEDS ORDERED: METOLAZONE 5 MG TABLET PO SCH (09:30)
[2018-04-03] MEDS: VALSARTAN 80 MG TAB PO SCH (09:32)
[2018-04-03] MEDS: AMLODIPINE 5 MG TAB PO SCH (09:32)
[2018-04-03] MEDS: SPIRONOLACTONE 25 MG TABLET PO SCH (09:32)
[2018-04-03] MEDS: VITAMIN D 5,000 UNIT CAP PO SCH (09:33)
[2018-04-03] MEDS: FUROSEMIDE 40 MG/4 ML VIAL IV SCH (09:33)
[2018-04-03 13:22] VITALS: BP 166/69; TEMP 98.9
--- NOTE | 2018-04-03 19:46 | P.PN ---
Date of Service: 04/03/18 Vital Signs Temp Pulse Resp BP Pulse Ox 98.9 F 66 16 166/69 H 92 04/03/18 12:00 04/03/18 12:00 04/03/18 12:00 04/03/18 12:00 04/03/18 12:00 Assessment/ Plan: Nephrology. Feeling better today. CPS improved without CP or SOB. No acute events overnight. Vitals, medications, blood work and imaging reviewed in the chart. General: Oriented x3, Cooperative HEENT: Normocephalic, Mucous membr. moist/pink Neck: Supple Respiratory: Clear to auscultation bilaterally, Normal air movement Cardiovascular: Regular rate/rhythm, No rubs, Edema Gastrointestinal: Soft and benign, Non-distended, No guarding Musculoskeletal: No clubbing, No contractures Integumentary: No rashes, No cyanosis Neurological: Normal speech Blood work reviewed in the chart. Hgb 10.2; Cr 1.70; Alb 2.2 Imagings Data: EXAM DESCRIPTION: CT - Thorax Wo Con - 03/31/2018 3:20 pm CLINICAL HISTORY: Abnormal chest film, shortness of breath COMPARISON: Portable chest March 31 TECHNIQUE: Axial 5 mm thick images of the chest were obtained without IV contrast. All CT scans are performed using dose optimization technique as appropriate and may include automated exposure control or mA/KV adjustment according to patient size. FINDINGS: Large left-sided pleural effusion is present occupying 40- 50% of the left hemithorax. Slightly smaller right pleural effusion is present. Bilateral lower lobe complete atelectasis is present. There is partial atelectasis of each upper lobe than the right middle lobe. No focal mass or consolidation of the lung parenchyma. No pleural based mass. No pneumothorax No abnormal mediastinal or hilar masses or lymphadenopathy seen. No gross aortic or pulmonary artery finding suspected. Mild cardiomegaly with minimal pericardial effusion. No chest wall mass or abnormal axillary lymphadenopathy. No endobronchial lesion. IMPRESSION: Large bilateral pleural effusions, left greater than right with no suspicious mass or infiltrate identifiable. Bilateral lower lobe complete atelectasis with partial atelectasis both upper lobes and the right middle lobe. HEIGHT: 5 ft 0 in WEIGHT: 180 lb 1.6 oz DATE OF STUDY: 04/02/[address]: Rekha Jamison MD 2-DIMENSIONAL: YES M.MODE: YES DOPPLER: YES COLOR FLOW: YES TDS: NO PORTABLE: NO DEFINITY: NO BUBBLE STUDY: NO DIAGNOSIS: CONGESTIVE HEART FAILURE CARDIAC HISTORY: CATHERIZATION: NO SURGERY: NO PROSTHETIC VALVE: NO PACEMAKER: NO MEASUREMENTS (cm) DIASTOLIC (NORMALS) SYSTOLIC (NORMALS) IVSd 1.2 (0.6-1.2) LA Diam 3.7 (1.9-4.0) LVEF 77% LVIDd 4.9 (3.5-5.7) LVIDs 2.6 (2.0-3.5) %FS 46% LVPWd 1.3 (0.6-1.2) Ao Diam 2.6 (2.0-3.7) 2 DIMENSIONAL ASSESSMENT: RIGHT ATRIUM: NORMAL LEFT ATRIUM: NORMAL RIGHT VENTRICLE: NORMAL LEFT VENTRICLE: MILD LEFT VENTRICULAR HYPERTROPHY TRICUSPID VALVE: NORMAL MITRAL VALVE: NORMAL PULMONIC VALVE: NORMAL AORTIC VALVE: SCLEROSIS PERICARDIAL EFFUSION: NONE AORTIC ROOT: NORMAL LEFT VENTRICULAR WALL MOTION: LEFT VENTRICULAR COMPLIANCE. DOPPLER/COLOR FLOW: MILD TRICUSPID REGURGITATION. COMMENTS: MILD TRICUSPID REGURGITATION. AORTIC SCLEROSIS. LEFT VENTRICULAR HYPERTROPHY. DECREASED LEFT VENTRICULAR COMPLIANCE. NORMAL EJECTION FRACTION. EXAM DESCRIPTION: US - Renal Ultrasound-Complete - 04/02/2018 9:48 am CLINICAL HISTORY: Renal failure COMPARISON: CT imaging January 2015 FINDINGS: The right kidney measures 9.8 x 4.8 x 5.9 cm. The left kidney measures 11.3 x 6.0 x 5.6 cm. Renal cortical thickness and echogenicity are normal. No hydronephrosis or suspicious renal mass. No bladder wall thickening or mass. No intraluminal stone or mass. IMPRESSION: No hydronephrosis or suspicious renal mass. Conclusions/Impression: A/ KEY likely CRS. CKD III with proteinuria. DM II with CKD. HTN with CKD. A/C Diastolic CHF. Anemia in chronic illness. Hypocalcemia. Moderate Malnutrition. P/ Continue current POC and Medications. Continue Lasix and start spironolactone. Give another dose of metolazone. Give KCl. No NSAIDs. Low sodium diet. AM labs. Daily weight. Case discussed with Dr. Jamison
--- NOTE | 2018-04-04 06:52 | DS ---
Date of Discharge: 04/03/2018 Consultants: Dr. Casanova with Pulmonology, Dr. Chan with Nephrology, and Dr. Fernández and Dr. David gandara with Cardiology. Admitting Diagnoses: 1.Acute congestive heart failure, likely diastolic dysfunction exacerbation. 2.Acute versus acute on chronic kidney injury. 3.Essential hypertension. 4.Diabetes mellitus type 2, with hyperglycemia. 5.Elevated troponin level. 6.Bilateral large pleural effusions. Discharge Diagnoses: 1.Acute diastolic congestive heart failure, improving. 2.Acute respiratory distress with hypoxia, resolved. 3.Bilateral pleural effusion secondary to acute respiratory distress with hypoxia. 4.Acute on chronic kidney injury. 5.Elevated troponin level secondary to acute congestive heart failure. 6.Essential hypertension, uncontrolled. 7.Diabetes mellitus type 2 with hyperglycemia, non-insulin requiring. 8.Hypertensive heart disease. 9.Hypothyroidism. Hospital Course: The patient has limited Surinamese proficiency. The patient is a 67-year-old female w ith history of diabetes, hypertension, heart failure, hyperlipidemia, who was in [facility] for 1 week, comes in with recurrent symptoms of shortness of breath and dyspnea. The patient was found to have elevated BNP, was hypoxic, around 87%. Chest x-ray had large pleural effusions bilater ally. She did have troponin elevation at 0.86. The patient was started on diuresis. Pulmonology an d Cardiology were consulted. The patient was noncompliant with part of the treatment here. She also refused echocardiogram multiple times. Does seem to have underlying psychiatric disorder, not other bonilla specified. The patient did finally agree to echocardiogram. Her EF was around 70%, had some mi ld left ventricular hypertrophy. The patient had significant improvement in her condition. Her hypo uriah improved. She was able to ambulate without difficulty. Her lower extremity edema also improved significantly. She did have some acute on chronic kidney injury. Nephrology was consulted. Dr. Tashia frazier saw the patient and her diuretics were adjusted. She was also added on spironolactone. Her mayur al ultrasound did not show any hydronephrosis or renal mass. The patient was then improving. She wa s then cleared for discharge. Followup: To follow up with primary care physician in 2-3 days. Follow up with petroleum products district supervisor, Dr. Uche metz, in 2 weeks. Follow up with news internship, Dr. Casanova, in 2 weeks. Follow up with nephrologi st, Dr. Chan, in 2 weeks. Return to ER for worsening condition. Diet: Low-sodium, fluid-restricted diet. The patient was counseled extensively on her diet restrict ion. Activity: As tolerated. Medications: As per medication reconciliation list. Physical Examination: General: Awake, alert, oriented x3, not in any acute distress, obese. CV: S1, S2. No murmurs. Respiratory: Moving air well bilaterally. Abdomen: Abdomen is soft, nontender, nondistended. Positive bowel sounds. Extremities: No clubbing or cyanosis. The patient does have 1+ edema in bilateral lower extremities . Neurologic: Nonfocal. Total time spent discharging the patient was 39 minute. The patient will need repeat TSH in 6-8 weeks to have her thyroid dose adjusted. The patient need al so to have repeat BMP in 1 week and follow up with Nephrology for further adjustment of her diuretics . SA/MODL Voice ID: [id number] Report ID: [id number]
--- NOTE | 2018-04-05 01:03 | PN ---
Ms. Cruz was admitted on 03/31/2018, seen by Dr. Cedeno on 04/01/2018 with a presumed diagnosis of c ongestive heart failure. She has large bilateral pleural effusion. She is very short of breath, hav e to sit down to breathe, cannot breathe lying down. An echocardiogram which was done yesterday real ly showed an ejection fraction of 77% with very minimal left ventricular compliance issue. The case was discussed with Dr. Jamison. I just do not think that all her symptoms are because of congestive he art failure. Thoracentesis may be reasonable too. EDSON/RENÉ Voice ID: [id number] Report ID: [id number]
== END 2018-04-03 13:15 | disposition home or self-care (01) | DRG 291 ==
LOC: ER 13:29 → ERHOLD 16:37 → 2ND 18:39
PROVIDERS: ADMIT Family Medicine; ATTEND Family Medicine
DX: I13.0 Hypertensive heart and chronic kidney disease with heart failure and stage 1 through stage 4 chronic kidney disease, or unspecified chronic kidney disease (principal); I50.33 Acute on chronic diastolic (congestive) heart failure; N17.9 Acute kidney failure, unspecified; E44.0 Moderate protein-calorie malnutrition; E78.5 Hyperlipidemia, unspecified; R06.03 Acute respiratory distress; R09.02 Hypoxemia; E11.22 Type 2 diabetes mellitus with diabetic chronic kidney disease; E11.65 Type 2 diabetes mellitus with hyperglycemia; N18.3 Chronic kidney disease, stage 3 (moderate); E83.51 Hypocalcemia; Z68.34 Body mass index [BMI] 34.0-34.9, adult; E03.9 Hypothyroidism, unspecified
CPT/HCPCS: 36415; 71045; 71046; 71250; 76770; 80048; 80053; 80076; 81003; 81015; 82962; 83735; 83880; 84439; 84443; 84484; 85025; 85610; 93005; 93306; 94760; 96372; 96374; 99285; J0360; J1650; J1940

== ENCOUNTER 2018-07-19 15:47 | Inpatient (IN) | payer OTHER ==
--- OUTSIDE RECORDS SUMMARY | 2018-07-19 15:49 | XMS REPORT ---
:1950 Author Organization [facility] Address [address] [place] [address] Care Team Providers Name Role Phone Unavailable Unavailable Unavailable Problems This patient has no known problems. Allergies, Adverse Reactions, Alerts This patient has no known allergies or adverse reactions. Medications This patient has no known medications.
[2018-07-19] MEDS ORDERED: ALBUTEROL 2.5 MG/3 ML NEB SOL ONE (16:28)
[2018-07-19] MEDS ORDERED: IPRATROPIUM BROM 0.5MG/2.5ML ONE (16:28)
[2018-07-19 16:59] LABS: Absolute Lymphocytes (CBC) 2.4 K/uL (0.7-4.9); Absolute Monocytes 0.6 K/uL (0.1-1.3); Absolute Neutrophil 5.5 K/uL (1.8-8.0); Basophils % 0.9 % (0-1.3); Eosinophils % 1.1 % (0-4.4); Hematocrit 35.3 % (36.0-45.0); Lymphocytes % 27.5 % (15.3-44.8); MPV 9.2 fL (7.6-11.3); Monocytes % 6.5 % (3.3-12.3); RBC Red Blood Cell Count 4.12 M/uL (3.86-4.86)
[2018-07-19 17:08] LABS: Protime INR 0.99
[2018-07-19] MEDS ORDERED: HYDRALAZINE HCL 20 MG/ML VIAL ONE (17:15)
--- NOTE | 2018-07-19 17:19 | RAD REPORT ---
EXAM DESCRIPTION: RAD - Chest Single View - 07/19/2018 5:13 pm CLINICAL HISTORY: CONGESTION Chest pain. COMPARISON: Chest Pa And Lat (2 Views) dated 04/02/2018; Chest Single View dated 03/31/2018; Thorax Wo Con dated 03/31/2018 FINDINGS: Portable technique limits examination quality. Moderate bibasilar lung opacities are present with pleural effusions, likely representing bibasilar p neumonia. The heart is normal in size. No displaced fractures. IMPRESSION: Moderate bibasilar pneumonia.
[2018-07-19 17:28] LABS: Albumin 2.9 g/dL (3.4-5.0); Bilirubin Direct 0.1 mg/dL (0-0.2); Bilirubin Total 0.4 mg/dL (0.2-1.0); Magnesium 2.3 mg/dL (1.8-2.4); Protein, Total 6.6 g/dL (6.4-8.2); Troponin (Emerg Dept Use Only) 0.18 ng/mL (0.0-0.045)
--- NOTE | 2018-07-19 17:39 | EDPHYS ---
Physician Documentation [facility] Name: Marilyn Cruz Age: 67 yrs Sex: Female : 1950 Arrival Date: 07/19/2018 Time: 15:51 Bed 23 Private MD: None, None ED Physician Andres Saunders HPI: 07/19 17:21 This 67 yrs old Female presents to ER via Ambulatory with complaints of Chest snw Congestion. 17:21 Onset: The symptoms/episode began/occurred gradually. Associated signs and symptoms: snw Pertinent positives: congestion, cough, wheezing. Modifying factors: The patient symptoms are alleviated by nothing. It is unknown whether or not the patient has had similar symptoms in the past. The patient has been recently seen by a physician: the patient's primary care provider, 3 day(s) ago, with similar presenting complaints, and apparently given a diagnosis of pneumonia, was given a prescription for antibiotics, but the patient's symptoms have worsened, but the patient's symptoms have persisted. Historical: - Allergies: 16:03 INSULINS; aj1 - Home Meds: 17:53 Farxiga 10 mg oral tab 1 tab once daily [Active]; hydralazine 25 mg Oral tab 1 tab 2 la1 times per day [Active]; - PMHx: 16:03 Diabetes - NIDDM; aj1 17:53 Hypertension; la1 - Immunization history:: Flu vaccine is not up to date. - Social history:: Smoking status: Patient/guardian denies using tobacco. - Ebola Screening: : Patient denies travel to an Ebola-affected area in the 21 days before illness onset. ROS: 17:21 Constitutional: Negative for fever, chills, and weight loss, Eyes: Negative for injury, snw pain, redness, and discharge, ENT: Negative for injury, pain, and discharge, Neck: Negative for injury, pain, and swelling, Cardiovascular: Negative for chest pain, palpitations, and edema. 17:21 Abdomen/GI: Negative for abdominal pain, nausea, vomiting, diarrhea, and constipation, Back: Negative for injury and pain, : Negative for injury, bleeding, discharge, and swelling, MS/Extremity: Negative for injury and deformity, Skin: Negative for injury, rash, and discoloration, Neuro: Negative for headache, weakness, numbness, tingling, and seizure. 17:21 Respiratory: Positive for cough, shortness of breath, wheezing, expiratory. Exam: 17:19 Constitutional: This is a well developed, well nourished patient who is awake, alert, snw and in no acute distress. Head/Face: Normocephalic, atraumatic. Eyes: Pupils equal round and reactive to light, extra-ocular motions intact. Lids and lashes normal. Conjunctiva and sclera are non-icteric and not injected. Cornea within normal limits. Periorbital areas with no swelling, redness, or edema. ENT: Nares patent. No nasal discharge, no septal abnormalities noted. Tympanic membranes are normal and external auditory canals are clear. Oropharynx with no redness, swelling, or masses, exudates, or evidence of obstruction, uvula midline. Mucous membranes moist. Neck: Trachea midline, no thyromegaly or masses palpated, and no cervical lymphadenopathy. Supple, full range of motion without nuchal rigidity, or vertebral point tenderness. No Meningismus. Chest/axilla: Normal chest wall appearance and motion. Nontender with no deformity. No lesions are appreciated. Cardiovascular: Regular rate and rhythm with a normal S1 and S2. No gallops, murmurs, or rubs. Normal PMI, no JVD. No pulse deficits. Abdomen/GI: Soft, non-tender, with normal bowel sounds. No distension or tympany. No guarding or rebound. No evidence of tenderness throughout. Back: No spinal tenderness. No costovertebral tenderness. Full range of motion. Skin: Warm, dry with normal turgor. Normal color with no rashes, no lesions, and no evidence of cellulitis. MS/ Extremity: Pulses equal, no cyanosis. Neurovascular intact. Full, normal range of motion. Neuro: Awake and alert, GCS 15, oriented to person, place, time, and situation. Cranial nerves II-XII grossly intact. Motor strength 5/5 in all extremities. Sensory grossly intact. Cerebellar exam normal. Normal gait. 17:19 Respiratory: mild respiratory distress is noted, Respirations: shallow respirations, Breath sounds: decreased breath sounds, rhonchi, are located in both bases, productive sounding cough without sputum production. 17:19 Psych: Behavior/mood is anxious. Vital Signs: 16:03 BP 202 / 67; Pulse 72; Resp 20; Temp 98.5; Pulse Ox 95% on R/A; Height 5 ft. 1 in. aj1 (154.94 cm) (R); Pain 0/10; 16:54 BP 235 / 68; Pulse 69; Resp 18; Pulse Ox 98% on R/A; la1 17:43 BP 188 / 60; Pulse 105; Resp 18; Pulse Ox 98% on R/A; la1 18:55 BP 173 / 51; Pulse 103; Resp 18; Pulse Ox 98% on R/A; la1 19:47 BP 188 / 65; Pulse 82; Resp 18; Pulse Ox 98% on R/A; la1 MDM: 16:23 Patient medically screened. snw 17:24 Data reviewed: vital signs, nurses notes. Data interpreted: Pulse oximetry: on room air snw is 98 %. Interpretation: normal. Counseling: I had a detailed discussion with the patient and/or guardian regarding: the historical points, exam findings, and any diagnostic results supporting the discharge/admit diagnosis, the presence of at least one elevated blood pressure reading (>120/80) during this emergency department visit, lab results, radiology results, the need for further work-up and treatment in the hospital. Physician consultation: Tracy Parson MD was called at 17:25, was contacted at 17:25, regarding admission, to the telemetry unit. left message. 17:33 Physician consultation: Rekha Jamison MD was called at 17:33, was contacted at 17:33, snw regarding admission, to the telemetry unit. 07/19 16:10 Order name: Basic Metabolic Panel; Complete Time: 17:29 snw 07/19 16:10 Order name: CBC with Diff; Complete Time: 17:06 snw 07/19 16:10 Order name: LFT's; Complete Time: 17:29 snw 07/19 16:10 Order name: Magnesium; Complete Time: 17:29 snw 07/19 16:10 Order name: NT PRO-BNP; Complete Time: 17:29 snw 07/19 16:10 Order name: PT-INR; Complete Time: 17:38 snw 07/19 16:10 Order name: Troponin (emerg Dept Use Only); Complete Time: 17:29 snw 07/19 16:10 Order name: XRAY Chest (1 view); Complete Time: 17:22 snw 01/13 16:10 Order name: Blood Culture Adult (2) 07/19 16:10 Order name: Lactate; Complete Time: 17:27 07/19 16:10 Order name: Procalcitonin; Complete Time: 17:42 07/19 16:10 Order name: EKG; Complete Time: 16:11 07/19 16:10 Order name: Cardiac monitoring; Complete Time: 17:36 07/19 16:10 Order name: EKG - Nurse/Tech; Complete Time: 17:37 07/19 16:10 Order name: IV Saline Lock; Complete Time: 16:51 07/19 16:10 Order name: Labs collected and sent; Complete Time: 16:51 07/19 16:10 Order name: O2 Per Protocol; Complete Time: 16:40 07/19 16:10 Order name: O2 Sat Monitoring; Complete Time: 16:40 snw Administered Medications: 16:51 Drug: Albuterol - atroVENT (3:1) (2.5 mg - 0.5 mg) 3 ml Route: Nebulizer; ss 17:44 Follow up: Response: No adverse reaction la1 17:12 Not Given (Other Intervention Used): Ativan 1 mg IVP once la1 17:14 Not Given (Patient Refused; Pt states she is here for her breathing and does not want la1 to take any other other medications, pt instructed on risks of having blood pressure so high without taking her medications or further medical intervention): hydrALAZINE 10 mg IV at calculated rate once 18:14 Drug: Cefepime 1 grams Route: IVPB; Rate: 200 ml/hr; Infused Over: 30 mins; Site: left la1 antecubital; 20:38 Follow up: IV Status: Completed infusion la1 Disposition: 07/19/18 17:38 Hospitalization ordered by Rkeha Jamison for Inpatient Admission. Preliminary diagnosis are Pneumonia, unspecified organism, Pleural effusion in conditions classified elsewhere, Elevated troponin. - Bed requested for Telemetry/MedSurg (Inpatient). - Status is Inpatient Admission. la1 - Condition is Stable. - Problem is an acute exacerbation. - Symptoms have worsened. UTI on Admission? No Addendum: 07/21/2018 10:29 Co-signature as Attending Physician, Andres Saunders MD. g s Signatures: Dispatcher [employer] EDMS Ratna Land, RN RN aj1 Quiana Gibbons, USABILITY ARCHITECT-C USABILITY ARCHITECT-Csnw Muriel Robertson, ILENE RN ss Lex Dowd, ILENE RN la1 Calista Vyas, RN RN df Andres Saunders MD MD Corrections: (The following items were deleted from the chart) 07/19 18:39 17:38 Hospitalization Ordered by Rekha Jamison MD for Inpatient Admission. Preliminary df diagnosis is Pneumonia, unspecified organism; Pleural effusion in conditions classified elsewhere; Elevated troponin. Bed requested for Telemetry/MedSurg (Inpatient). Status is Inpatient Admission. Condition is Stable. Problem is an acute exacerbation. Symptoms have worsened. UTI on Admission? No. snw 20:37 18:39 07/19/2018 17:38 Hospitalization Ordered by Rekha Jamison MD for Inpatient la1 Admission. Preliminary diagnosis is Pneumonia, unspecified organism; Pleural effusion in conditions classified elsewhere; Elevated troponin. Bed requested for Telemetry/MedSurg (Inpatient). Status is Inpatient Admission. Condition is Stable. Problem is an acute exacerbation. Symptoms have worsened. UTI on Admission? No. df
--- NOTE | 2018-07-19 17:39 | ER ---
Nurse's Notes [facility] Name: Marilyn Cruz Age: 67 yrs Sex: Female : 1950 Arrival Date: 07/19/2018 Time: 15:51 Bed 23 Private MD: None, None Diagnosis: Pneumonia, unspecified organism;Pleural effusion in conditions classified elsewhere;Elevated troponin Presentation: 07/19 15:59 Presenting complaint: Patient states: "Last night I couldn't sleep because there was a aj1 noise in my chest. I went to the doctor 4 days ago and he said that I had pneumonia" Reports she was started on an antibiotic and told if it didn't go away she had to go to the emergency room for further treatment. Patient reports shortness of breath on exertion. Transition of care: patient was not received from another setting of care. Onset of symptoms was July 2018. Risk Assessment: Do you want to hurt yourself or someone else? Patient reports no desire to harm self or others. Initial Sepsis Screen: Does the patient meet any 2 criteria? No. Patient's initial sepsis screen is negative. Does the patient have a suspected source of infection? Yes: Productive cough/pneumonia. Care prior to arrival: None. 15:59 Method Of Arrival: Ambulatory aj1 15:59 Acuity: JAKOB 3 aj1 Triage Assessment: 16:03 General: Appears in no apparent distress. uncomfortable, Behavior is calm, cooperative, aj1 appropriate for age. Pain: Denies pain. Neuro: Level of Consciousness is awake, alert, obeys commands. Cardiovascular: Patient's skin is warm and dry. Respiratory: Reports shortness of breath on exertion cough that is productive, Airway is patent Respiratory effort is even, unlabored, Respiratory pattern is regular, symmetrical. Historical: - Allergies: 16:03 INSULINS; aj1 - Home Meds: 17:53 Farxiga 10 mg oral tab 1 tab once daily [Active]; hydralazine 25 mg Oral tab 1 tab 2 la1 times per day [Active]; - PMHx: 16:03 Diabetes - NIDDM; aj1 17:53 Hypertension; la1 - Immunization history:: Flu vaccine is not up to date. - Social history:: Smoking status: Patient/guardian denies using tobacco. - Ebola Screening: : Patient denies travel to an Ebola-affected area in the 21 days before illness onset. Screenin:55 Abuse screen: Denies threats or abuse. Nutritional screening: No deficits noted. la1 Tuberculosis screening: No symptoms or risk factors identified. Fall Risk None identified. Assessment: 16:54 General: Appears in no apparent distress. Behavior is calm, cooperative. Pain: Denies la1 pain. Neuro: Level of Consciousness is awake, alert, obeys commands, Oriented to person, place, time, situation. Cardiovascular: Heart tones S1 S2 present Capillary refill < 3 seconds Patient's skin is warm and dry. Respiratory: Airway is patent Respiratory effort is even, unlabored, Respiratory pattern is regular, symmetrical, Breath sounds are coarse bilaterally. GI: No signs and/or symptoms were reported involving the gastrointestinal system. : No signs and/or symptoms were reported regarding the genitourinary system. Vital Signs: 16:03 BP 202 / 67; Pulse 72; Resp 20; Temp 98.5; Pulse Ox 95% on R/A; Height 5 ft. 1 in. aj1 (154.94 cm) (R); Pain 0/10; 16:54 BP 235 / 68; Pulse 69; Resp 18; Pulse Ox 98% on R/A; la1 17:43 BP 188 / 60; Pulse 105; Resp 18; Pulse Ox 98% on R/A; la1 18:55 BP 173 / 51; Pulse 103; Resp 18; Pulse Ox 98% on R/A; la1 19:47 BP 188 / 65; Pulse 82; Resp 18; Pulse Ox 98% on R/A; la1 ED Course: 15:51 Patient arrived in ED. sb2 15:52 None, None is Private Physician. sb2 16:02 Triage completed. aj1 16:03 Arm band placed on Patient placed in an exam room. aj1 16:09 Quiana Gibbons FNP-C is [facility]. snw 16:09 Andres Saunders MD is Attending Physician. snw 16:15 Lex Dowd, ILENE is Primary Nurse. la1 16:45 X-ray completed. Portable x-ray completed in exam room. Patient tolerated procedure la2 well. 16:51 Inserted saline lock: 22 gauge in left forearm, using aseptic technique. Blood ss collected. 16:55 Placed in gown. Bed in low position. Call light in reach. la1 17:13 XRAY Chest (1 view) In Process Unspecified. EDMS 17:36 EKG done, by ED staff, reviewed by Quiana JIANG. [facility] 17:37 Rekha Jamison MD is Hospitalizing Provider. snw 20:37 No provider procedures requiring assistance completed. Patient admitted, IV remains in la1 place. Administered Medications: 16:51 Drug: Albuterol - atroVENT (3:1) (2.5 mg - 0.5 mg) 3 ml Route: Nebulizer; 17:44 Follow up: Response: No adverse reaction la1 17:12 Not Given (Other Intervention Used): Ativan 1 mg IVP once la1 17:14 Not Given (Patient Refused; Pt states she is here for her breathing and does not want la1 to take any other other medications, pt instructed on risks of having blood pressure so high without taking her medications or further medical intervention): hydrALAZINE 10 mg IV at calculated rate once 18:14 Drug: Cefepime 1 grams Route: IVPB; Rate: 200 ml/hr; Infused Over: 30 mins; Site: left la1 antecubital; 20:38 Follow up: IV Status: Completed infusion la1 Outcome: 17:38 Decision to Hospitalize by Provider. snw 20:37 Admitted to Med/surg accompanied by tech, via wheelchair, with chart. la1 20:37 Condition: stable 20:37 Instructed on the need for admit. 20:37 Patient left the ED. la1 Signatures: Dispatcher [employer] EDWV Ratna Land RN RN aj1 Quiana Gibbons FNP-C FNP-Muriel Gómez RN RN Lex Dowd RN RN la1 Sherri Rose 3 Roula Walker la2 Margaret Franklin
[2018-07-19] MEDS ORDERED: CEFEPIME 1 GM/100 ML BAG IV ONE (18:05)
[2018-07-19] MEDS ORDERED: ONDANSETRON 4 MG/2 ML VIAL IV PRN (20:46)
[2018-07-19] MEDS ORDERED: GLUCAGON 1 MG/VIAL IM PRN (20:46)
[2018-07-19] MEDS ORDERED: ACETAMINOPHEN 500 MG TAB PO PRN (20:46)
[2018-07-19] MEDS ORDERED: D50W 25 GM/50 ML SYRINGE IV PRN (20:46)
[2018-07-19] MEDS ORDERED: INSULIN -REGULAR HUMAN 50 UNIT/0.5 ML ML SQ SCH (21:00)
[2018-07-19] MEDS: Levofloxacin500mg IV 500 MG/100 ML BAG IV SCH (22:03)
[2018-07-19] MEDS ORDERED: NA CHLORIDE 0.9% 250 ML ONE (22:10)
[2018-07-20] MEDS ORDERED: HYDRALAZINE HCL 20 MG/ML VIAL IV PRN (00:33)
[2018-07-20] MEDS ORDERED: MELATONIN 3 MG TABLET PO ONE (02:26)
--- NOTE | 2018-07-20 04:22 | HP ---
Date of Admission: 07/19/2018 Chief Complaint: Shortness of breath, cough because it is full. Code status: Full History Of Present Illness: The patient is a 67-year-old female with past medical history of diabetes, hypertension, congestive heart failure, hyperlipidemia, who was recently diagnosed with pneumonia, treated with Zithromax for 6 days and, however, still having cough, sputum production. The patient having some difficulty breathing at home, concerned about her congestion and rattling that she hears in her chest. Therefore, came into the ER. Her symptoms are constant, moderate, progressively worsening. Denies any ill contacts. No significant fevers or chills. In the ER, her workup revealed a creatinine of 1.34, which is around her baseline. Troponin was elevated at 0.18. Chest x-ray showed bibasilar pneumonia. WBC count was normal. The patient was then referred for admission. When seen in the ER, she was awake, alert, oriented x3. Past Medical History: Diabetes mellitus type 2, essential hypertension, congestive heart failure, EF normal, hyperlipidemia. Past Surgical History: None. Allergies: NO KNOWN DRUG ALLERGIES. Medications: List reviewed. Social History: The patient denies any tobacco use, alcohol use or illicit drug use. The patient is , independent in her activities of daily living. Family History: Denies any family history of diabetes or high blood pressure. Review of Systems: An 11-point system reviewed, negative except as per HPI. Physical Examination: Vital Signs: Blood pressure 202/67, pulse 72, respirations 20, temperature 98.5 , O2 95% on room air. General: Awake, alert, oriented x3, not in any acute distress. Elderly female , ill-appearing. CV: S1 and S2. Regular rate and rhythm. Peripheral pulses present. Respiratory: Diminished breath sounds at the bases. Some rhonchi heard. No use of accessory muscles. Gastrointestinal: Abdomen is soft, nontender, nondistended. Positive bowel sounds. No guarding or rigidity. No palpable masses. Extremities: No clubbing, cyanosis or edema. No calf tenderness. Neuro: Cranial nerves 2 through 12 intact grossly. No focal neurological deficit. Speech is normal. Strength is 5/5 bilateral upper and lower extremities. Sensation intact to light touch. Skin: No rashes. Normal skin turgor. The patient has dry skin of the lower extremities with excoriations present. Laboratory Data: WBC 8.7, H and H 12.1 and 35.3, platelets 274. INR 0.99. Sodium 145, potassium 4, chloride 113, CO2 25, BUN 20, creatinine 1.34, glucose 153, lactate 0.8, calcium 8.4, magnesium 2.3. Troponin 0.18. Albumin 2.9. Procalcitonin less than 0.05. Chest x-ray personally reviewed, shows moderate bibasilar pneumonia present with pleural effusions. Assessment And Plan: 1. Pneumonia, bibasilar. We will continue on IV antibiotics with Levaquin renally dosed. Obtain cultures. 2. Bilateral pleural effusions. We will give trial of Lasix. 3. Congestive heart failure, chronic diastolic ejection fraction in March showed 77%, some mild aortic sclerosis. 4. Hypertensive heart disease. 5. Diabetes mellitus type 2, non-insulin requiring with hyperglycemia. We will start on sliding scale insulin. Monitor Accu-Cheks. 6. Essential hypertension, stable. 7. Mixed hyperlipidemia. 8. Chronic kidney disease stage 2. Plan: Admit the patient to Med-Surg, place as inpatient. Length of stay greater than 2 midnights. FRANCY Voice ID: [id number] [email or web address]
[2018-07-20 04:39] LABS: Absolute Lymphocytes (CBC) 1.7 K/uL (0.7-4.9); Absolute Monocytes 0.5 K/uL (0.1-1.3); Absolute Neutrophil 4.5 K/uL (1.8-8.0); Basophils % 1.1 % (0-1.3); Eosinophils % 0.7 % (0-4.4); Hematocrit 29.3 % (36.0-45.0); Lymphocytes % 24.6 % (15.3-44.8); MPV 9.4 fL (7.6-11.3); Monocytes % 7.2 % (3.3-12.3); RBC Red Blood Cell Count 3.44 M/uL (3.86-4.86)
[2018-07-20 05:12] LABS: Albumin 2.3 g/dL (3.4-5.0); Bilirubin Total 0.4 mg/dL (0.2-1.0); Potassium 3.8 mmol/L (3.5-5.1); Protein, Total 5.4 g/dL (6.4-8.2)
--- NOTE | 2018-07-20 07:58 | EKG ---
Test Date: 2018-07-19 Test Time: 17:24:07 Biochemical Development Engineer: SHANE MEASUREMENT RESULTS: Intervals: Rate: 106 [place]: 166 QRSD: 90 QT: 382 QTc: 507 [place]: P: 62 [place]: 166 QRS: -28 T: 155 INTERPRETIVE STATEMENTS: Sinus tachycardia ST & T wave abnormality, consider inferolateral ischemia Abnormal ECG Compared to ECG 03/31/2018 14:17:33 ST (T wave) deviation now present Sinus rhythm no longer present T-wave abnormality no longer present Prolonged QT interval no longer present Possible ischemia still present Electronically Signed On 07-20-18 07:58:13 ROLL CHANGER by Cem Cedeno
[2018-07-20] MEDS: HOME MED 1 EA UNK (Dapagliflozin Propanediol [Farxiga] 10 MG) PO SCH (09:00)
[2018-07-20] MEDS: HYDRALAZINE HCL 25 MG TABLET PO SCH ×2 (09:28→20:41)
[2018-07-20] MEDS: ALBUTEROL 2.5 MG/3 ML NEB SOL NEB PRN ×2 (10:05→14:10)
[2018-07-20] MEDS ORDERED: CLONIDINE 0.2 MG/PATCH TD SCH (11:00)
[2018-07-20] MEDS: FUROSEMIDE 40 MG/4 ML VIAL IV SCH ×2 (12:46→20:41)
[2018-07-20] MEDS: ENOXAPARIN 30 MG/0.3 ML SQ SCH (17:00)
--- NOTE | 2018-07-20 17:28 | PN ---
Date of Progress Note: 07/20/2018 Subjective: The patient is seen and examined. Chart reviewed and case discussed with RN. The patie nt is refusing IV antihypertensives, saying that she only wants to take her pills from home. The pat laura's blood pressure is being uncontrolled. Medications: List reviewed. Physical Examination: Vital Signs: Temperature 97.6, heart rate 72, blood pressure 179/77, respirations 18, and O2 of 92% on room air. General: Awake, alert, and oriented x3, some mild distress, ill-appearing female. BMI 31. CV: S1 and S2. Regular rate and rhythm. Peripheral pulses present. Respiratory: Diminished breath sounds, some dullness to percussion. Rhonchi heard. Gastrointestinal: Abdomen is soft, nontender, and nondistended. Positive bowel sounds. Extremities: No clubbing, cyanosis. No edema. Neurologic: Nonfocal. Laboratory Data: Sodium 145, potassium 3.8, chloride 113, CO2 of 26, BUN 23, creatinine 1.33, glucos e 151, calcium 7.9, and albumin 2.3. WBC 6.7, H and H of 10.3 and 29.3, platelets 214. Blood cultur es and sputum cultures pending. Assessment And Plan: A 67-year-old female with, 1.Bibasilar pneumonia, failed outpatient treatment with azithromycin. We will continue IV antibioti cs. Cultures are pending at this time. The patient still has significant amount of cough with scant sputum production. 2.Hypertensive emergency. The patient has end-organ damage with elevated troponin, likely due to de meera mismatch. The patient is noncompliant with and refusing antihypertensives through the IV. We w ill add p.o. medications. 3.Bilateral pleural effusions secondary to volume overload and congestive heart failure. We will st art on Lasix. 4.Congestive heart failure, chronic, diastolic, ejection fraction is 77% from previous echo. 5.Aortic sclerosis. 6.Hypertensive heart disease. 7.Diabetes mellitus type 2, non-insulin requiring with hyperglycemia. Continue sliding scale insuli n. Monitor Accu-Cheks. 8.Hyperlipidemia. 9.Chronic kidney disease, stage 2. We will continue to monitor creatinine and avoid NSAIDs. 10.Noncompliance, intentional. 11.Gastrointestinal and deep venous thrombosis prophylaxis with PPI. We will add Lovenox, renally d osed. PLAN: Adjust medications. If the patient continues to refuse, may need to be on a drip to reduce bl ood pressure as she has risk factors for stroke and heart disease. /RENÉ Voice ID: [id number] Report ID: [id number]
[2018-07-20] MEDS ORDERED: LORazepam 2 MG/ML VIAL IV ONE (17:39)
[2018-07-20] MEDS: LABETALOL HCL 100 MG/20 ML IV PRN (17:47)
[2018-07-20] MEDS: GUAIFENESIN/CODEINE 5ML UCUP PO PRN (17:48)
[2018-07-20] MEDS: GUAIFENESIN 600 MG SA TAB PO PRN (20:41)
[2018-07-20 21:36] VITALS: BMI 31.4
[2018-07-21] MEDS: LABETALOL HCL 100 MG/20 ML IV PRN (04:46)
[2018-07-21] MEDS: GUAIFENESIN/CODEINE 5ML UCUP PO PRN (05:43)
[2018-07-21 06:09] LABS: Absolute Lymphocytes (CBC) 2.4 K/uL (0.7-4.9); Absolute Monocytes 0.4 K/uL (0.1-1.3); Absolute Neutrophil 4.1 K/uL (1.8-8.0); Basophils % 1.2 % (0-1.3); Hematocrit 34.2 % (36.0-45.0); Lymphocytes % 33.5 % (15.3-44.8); MPV 9.5 fL (7.6-11.3); Monocytes % 6.2 % (3.3-12.3); RBC Red Blood Cell Count 3.98 M/uL (3.86-4.86)
[2018-07-21 06:25] LABS: Albumin 2.7 g/dL (3.4-5.0); Bilirubin Total 0.4 mg/dL (0.2-1.0); Potassium 3.6 mmol/L (3.5-5.1); Protein, Total 6.3 g/dL (6.4-8.2)
[2018-07-21] MEDS: FUROSEMIDE 40 MG/4 ML VIAL IV SCH ×2 (08:43→20:45)
[2018-07-21] MEDS: HYDRALAZINE HCL 25 MG TABLET PO SCH ×2 (08:44→20:45)
[2018-07-21] MEDS: HOME MED 1 EA UNK (Dapagliflozin Propanediol [Farxiga] 10 MG) PO SCH ×2 (08:50→08:57)
[2018-07-21] MEDS: GUAIFENESIN 600 MG SA TAB PO PRN ×2 (09:01→20:46)
[2018-07-21] MEDS: BENZONATATE 100 MG CAP PO PRN ×2 (11:00→20:45)
--- NOTE | 2018-07-21 14:06 | P.PN ---
Subjective Date of Service: 07/21/18 Subjective: Improving Patient seen and examined at bedside. No family at bedside. Chart reviewed and case discussed with nursing staff. Complaining of cough this morning, otherwise doing well. Reports improved breathing. Denies any chest pain, headaches, dizziness, GI complaints or complaints. Review of Systems 10-point ROS is otherwise unremarkable Physical Examination - Vital Signs Temperature: 98.1 F Blood Pressure: 180/77 Pulse: 62 Respirations: 16 Pulse Ox (%): 90 - Physical Exam General: Alert, In no apparent distress, Oriented x3 HEENT: Atraumatic, PERRLA, EOMI Neck: Supple, JVD not distended Respiratory: Clear to auscultation bilaterally, Normal air movement Cardiovascular: Regular rate/rhythm, Normal S1 S2 Gastrointestinal: Normal bowel sounds, No tenderness Musculoskeletal: No tenderness Integumentary: No rashes Neurological: Normal speech, Normal tone, Normal affect Lymphatics: No axilla or inguinal lymphadenopathy Assessment And Plan - Current Problems (Diagnosis) (1) Pneumonia Current Visit: Yes Status: Acute Qualifiers: Pneumonia type: due to unspecified organism Laterality: bilateral Lung location: unspecified part of lung Qualified Code(s): J18.9 - Pneumonia, unspecified organism (2) Pleural effusion Current Visit: Yes Status: Acute (3) Hypertensive heart disease Current Visit: Yes Status: Chronic (4) Diabetes mellitus Current Visit: Yes Status: Chronic Qualifiers: Diabetes mellitus type: type 2 Diabetes mellitus custodial insulin use: without tank terminal gauger use Diabetes mellitus complication status: with hyperglycemia Qualified Code(s): E11.65 - Type 2 diabetes mellitus with hyperglycemia (5) Hypertension Current Visit: Yes Status: Acute Qualifiers: Hypertension type: essential hypertension Qualified Code(s): I10 - Essential (primary) hypertension (6) Hyperlipidemia Current Visit: Yes Status: Acute Qualifiers: Hyperlipidemia type: mixed hyperlipidemia Qualified Code(s): E78.2 - Mixed hyperlipidemia (7) CHF (congestive heart failure) Onset Date: 04/01/18 Current Visit: No Status: Chronic Qualifiers: Heart failure type: diastolic Heart failure chronicity: chronic Qualified Code(s): I50.32 - Chronic diastolic (congestive) heart failure - Plan This is a 67-year-old female with: Pneumonia (Acute) J18.9 Continue IV antibiotics with Levaquin, renally dosed. Will switch to oral antibiotics in the morning, if remained stable. Cultures pending, cultures negative to date. Varsha Lozada for cough Pleural effusion (Acute) J90 Continue IV Lasix Hypertensive heart disease (Chronic) I11.9 CHF (congestive heart failure) (Acute 04/01/18) I50.9 ejection fraction in March showed 77% Hyperlipidemia (Acute) E78.5 Hypertension (Acute) I10 Blood pressure elevated this morning. Patient refusing any IV pain medications or any other medications other than her home blood pressure pill. Given hydralazine p.o. this morning. Will continue to monitor blood pressures. Will continue to have discussion with patient in regards to having another oral blood pressure medication. Diabetes mellitus (Chronic) E11.9 Continue sliding scale insulin and monitoring via Accu-Cheks. Will adjust as needed. DVT prophylaxis: Lovenox GI prophylaxis: None Diet: Heart healthy Disposition: Pending symptomatic improvement. - Code Status/Comfort Care Code Status: Full Code Time Spent Managing PTS Care (In Minutes): 35
[2018-07-21] MEDS: LABETALOL 20 MG/4ML SYRINGE IV PRN (14:48)
[2018-07-21] MEDS: ENOXAPARIN 30 MG/0.3 ML SQ SCH (16:28)
[2018-07-21] MEDS: Levofloxacin500mg IV 500 MG/100 ML BAG IV SCH (20:46)
[2018-07-21] MEDS ORDERED: TEMAZEPAM 15 MG CAP PO PRN (21:52)
[2018-07-22 03:54] VITALS: O2SAT 93
[2018-07-22] MEDS: LABETALOL 20 MG/4ML SYRINGE IV PRN (05:32)
[2018-07-22] MEDS: HYDRALAZINE HCL 25 MG TABLET PO SCH (08:50)
[2018-07-22] MEDS: FUROSEMIDE 40 MG/4 ML VIAL IV SCH (08:50)
[2018-07-22] MEDS: HOME MED 1 EA UNK (Dapagliflozin Propanediol [Farxiga] 10 MG) PO SCH (08:51)
--- NOTE | 2018-07-22 09:24 | RAD REPORT ---
EXAM DESCRIPTION: Emery Single View07/22/2018 8:11 am CLINICAL HISTORY: Shortness of breath COMPARISON: July 19, 2018 FINDINGS: The right basilar opacity has moderately resolved. Mild improvement in the left basilar op acity has occurred. Small to moderate left and small right pleural effusions are suspected. The heart is mildly enlarged
--- NOTE | 2018-07-22 09:32 | P.DS ---
Admission Date: 07/19/18 Discharge Date: 07/22/18 Disposition: ROUTINE DISCHARGE Discharge Condition: GOOD Reason for Admission: Pneumonia - Problems (1) Pneumonia Current Visit: Yes Status: Acute Qualifiers: Pneumonia type: due to unspecified organism Laterality: bilateral Lung location: unspecified part of lung Qualified Code(s): J18.9 - Pneumonia, unspecified organism (2) Pleural effusion Current Visit: Yes Status: Acute (3) Hypertensive heart disease Current Visit: Yes Status: Chronic (4) Diabetes mellitus Current Visit: Yes Status: Chronic Qualifiers: Diabetes mellitus type: type 2 Diabetes mellitus terminal gauger insulin use: without terminal gauger use Diabetes mellitus complication status: with hyperglycemia Qualified Code(s): E11.65 - Type 2 diabetes mellitus with hyperglycemia (5) Hypertension Current Visit: Yes Status: Acute Qualifiers: Hypertension type: essential hypertension Qualified Code(s): I10 - Essential (primary) hypertension (6) Hyperlipidemia Current Visit: Yes Status: Acute Qualifiers: Hyperlipidemia type: mixed hyperlipidemia Qualified Code(s): E78.2 - Mixed hyperlipidemia (7) CHF (congestive heart failure) Onset Date: 04/01/18 Current Visit: No Status: Chronic Qualifiers: Heart failure type: diastolic Heart failure chronicity: chronic Qualified Code(s): I50.32 - Chronic diastolic (congestive) heart failure Brief History of Present Illness: : The patient is a 67-year-old female with past medical history of diabetes, hypertension, congestive heart failure, hyperlipidemia, who was recently diagnosed with pneumonia, treated with Zithromax for 6 days and, however, still having cough, sputum production. The patient having some difficulty breathing at home, concerned about her congestion and rattling that she hears in her chest. Therefore, came into the ER. Her symptoms are constant, moderate, progressively worsening. Denies any ill contacts. No significant fevers or chills. In the ER, her workup revealed a creatinine of 1.34, which is around her baseline. Troponin was elevated at 0.18. Chest x-ray showed bibasilar pneumonia. WBC count was normal. The patient was then referred for admission. When seen in the ER, she was awake, alert, oriented x3. Hospital Course: Patient was admitted, IV antibiotics with Levaquin was started. She was started on antitussive medications with Robitussin and Tessalon Perles. She was given IV Lasix for her pleural effusion. Her blood pressure was uncontrolled but patient refused any Iv HTN medications. She was given her home hydralazine and a clonidine patch, which helped control her blood pressure. She refused any other addition of medications. Her symptoms of cough improved and her breathing improved. Her condition/symptoms were discussed with her. All questions were answered and she verbalized understanding. She did have a nose bleed, which resolved. This was likely because she was blowing/cleaning nose too hard. Counseled on nasal irritation. Okay to use saline nasal spray. She was instructed to follow up with her PCP for BP check and follow up She was discharged home with PO levaquin Q48 x 4 pills (total 10 day course) No other medication changes made. At the time of discharge, patient was AAOx4, cough had improved and was breathing well on room air. She had no complaints. Vital Signs/Physical Exam: Temp Pulse Resp BP Pulse Ox 98.7 F 65 18 160/78 H 96 07/22/18 04:00 07/22/18 08:50 07/22/18 04:00 07/22/18 08:50 07/22/18 04:00 General: Alert, In no apparent distress, Oriented x3 HEENT: Atraumatic, PERRLA, EOMI Neck: Supple, JVD not distended Respiratory: Clear to auscultation bilaterally, Normal air movement Cardiovascular: Regular rate/rhythm, Normal S1 S2 Gastrointestinal: Normal bowel sounds, No tenderness Musculoskeletal: No tenderness Integumentary: No rashes Neurological: Normal speech, Normal tone, Normal affect Lymphatics: No axilla or inguinal lymphadenopathy Laboratory Data at Discharge: WBC 7.2 K/uL (4.3-10.9) 07/21/18 05:34 Hgb 11.5 g/dL (12.0-15.0) L 07/21/18 05:34 Hct 34.2 % (36.0-45.0) L D 07/21/18 05:34 Plt Count 241 K/uL (152-406) 07/21/18 05:34 PT 11.7 SECONDS (9.5-12.5) 07/19/18 16:41 INR 0.99 07/19/18 16:41 Sodium 145 mmol/L (136-145) 07/21/18 05:34 Potassium 3.6 mmol/L (3.5-5.1) 07/21/18 05:34 BUN 28 mg/dL (7-18) H 07/21/18 05:34 Creatinine 1.95 mg/dL (0.55-1.3) H 07/21/18 05:34 Glucose 160 mg/dL (74-106) H 07/21/18 05:34 Magnesium 2.3 mg/dL (1.8-2.4) 07/19/18 16:41 Total Bilirubin 0.4 mg/dL (0.2-1.0) 07/21/18 05:34 AST 13 U/L (15-37) L 07/21/18 05:34 ALT 14 U/L (12-78) 07/21/18 05:34 Alkaline Phosphatase 102 U/L (45-117) 07/21/18 05:34 Home Medications: Dapagliflozin Propanediol [Farxiga] 10 mg PO DAILY 07/19/18 Hydralazine [Apresoline*] 25 mg PO BID 07/19/18 Benzonatate [Tessalon Perle*] 100 mg PO TID PRN #15 cap 07/22/18 levoFLOXacin [Levaquin] 500 mg PO Q48H #4 tab 07/22/18 New Medications: Benzonatate [Tessalon Perle*] 100 mg PO TID PRN #15 cap PRN Reason: Cough levoFLOXacin [Levaquin] 500 mg PO Q48H #4 tab Patient Discharge Instructions: Please follow up with the primary care physician in 1 week for blood pressure check. New medications: Levaquin ( antibiotic), benzonatate Perles for cough as needed carry. Please return to the ER for any worsening symptoms. Diet: AHA Activity: Ad ashely Time spent managing pt's care (in minutes): 55
[2018-07-22 15:08] VITALS: BP 174/73; TEMP 98.2
== END 2018-07-22 13:00 | disposition home or self-care (01) | DRG 194 ==
LOC: ER 15:47 → ERHOLD 18:10 → 2ND 20:24
PROVIDERS: ADMIT Family Medicine; ATTEND Family Medicine
DX: J18.9 Pneumonia, unspecified organism (principal); I13.0 Hypertensive heart and chronic kidney disease with heart failure and stage 1 through stage 4 chronic kidney disease, or unspecified chronic kidney disease; I50.32 Chronic diastolic (congestive) heart failure; E78.2 Mixed hyperlipidemia; Z91.19 Patient's noncompliance with other medical treatment and regimen; E11.22 Type 2 diabetes mellitus with diabetic chronic kidney disease; E11.65 Type 2 diabetes mellitus with hyperglycemia; N18.2 Chronic kidney disease, stage 2 (mild); R04.0 Epistaxis
CPT/HCPCS: 36415; 71045; 80048; 80053; 80076; 82962; 83605; 83735; 83880; 84145; 84484; 85025; 85610; 87040; 87070; 87205; 93005; 94640; 94760; 96365; 96366; 99285; J0360; J0692; J1650; J1940

== ENCOUNTER 2018-11-21 13:25 | Inpatient (IN) | payer OTHER ==
--- OUTSIDE RECORDS SUMMARY | 2018-11-21 13:28 | XMS REPORT ---
:1950 [facility] Address [address] [place] [address] Care Team Providers Name Role Phone Unavailable Unavailable Unavailable Problems This patient has no known problems. Allergies, Adverse Reactions, Alerts This patient has no known allergies or adverse reactions. Medications This patient has no known medications.
[2018-11-21 14:22] LABS: Protime INR 0.99
[2018-11-21 14:25] LABS: Absolute Lymphocytes (CBC) 2.3 K/uL (0.7-4.9); Absolute Monocytes 0.4 K/uL (0.1-1.3); Absolute Neutrophil 3.9 K/uL (1.8-8.0); Basophils % 0.8 % (0-1.3); Eosinophils % 1.8 % (0-4.4); Hematocrit 34.7 % (36.0-45.0); Lymphocytes % 33.4 % (15.3-44.8); MPV 9.3 fL (7.6-11.3); Monocytes % 5.9 % (3.3-12.3); RBC Red Blood Cell Count 4.08 M/uL (3.86-4.86)
--- NOTE | 2018-11-21 14:43 | RAD REPORT ---
EXAM DESCRIPTION: Emery Single View11/21/2018 2:36 pm CLINICAL HISTORY: Shortness of breath COMPARISON: July 2018 FINDINGS: Small to moderate left and small right pleural effusion Mild interstitial lung opacities Heart is mildly enlarged IMPRESSION: CHF
[2018-11-21 14:45] LABS: Albumin 2.7 g/dL (3.4-5.0); Bilirubin Direct 0.1 mg/dL (0-0.2); Bilirubin Total 0.4 mg/dL (0.2-1.0); Magnesium 2.1 mg/dL (1.8-2.4); Potassium 4.1 mmol/L (3.5-5.1); Protein, Total 6.2 g/dL (6.4-8.2)
[2018-11-21 14:48] LABS: Troponin (Emerg Dept Use Only) 0.7 ng/mL (0.0-0.045)
[2018-11-21] MEDS ORDERED: HYDRALAZINE HCL 20 MG/ML VIAL ONE (15:12)
[2018-11-21] MEDS ORDERED: FUROSEMIDE 100 MG/10 ML VIAL IV ONE (15:12)
--- NOTE | 2018-11-21 15:13 | EDPHYS ---
Physician Documentation [facility] Name: Marilyn Cruz Age: 68 yrs Sex: Female : 1950 Arrival Date: 11/21/2018 Time: 13:28 Bed 6 Private MD: ED Physician Andres Saunders HPI: 11/21 15:03 This 68 yrs old Female presents to ER via Ambulatory with complaints of Feet jr8 Swelling. 15:03 Patient stated that she is starting have fluid build up in her lower extremities. Has jr8 had this once before and was a result of CHF. Stated that she has been more fatigue with exertion recently but denies shortness of breath . Severity of symptoms: At their worst the symptoms were moderate in the emergency department the symptoms are unchanged. It is unknown whether or not the patient has had similar symptoms in the past. The patient has not recently seen a physician. Historical: - Allergies: 13:45 INSULINS; ph 13:45 INSULINS; sg - Home Meds: 13:45 Farxiga 10 mg Oral tab 1 tab once daily [Active]; hydralazine 25 mg Oral tab 1 tab 2 ph times per day [Active]; - PMHx: 13:45 Diabetes - NIDDM; Hypertension; ph 13:45 Diabetes - NIDDM; Hypertension; CHF; sg - PSHx: 13:45 None; sg - Immunization history:: Adult Immunizations not up to date. - Social history:: Smoking status: Patient/guardian denies using tobacco. - Ebola Screening: : Patient negative for fever greater than or equal to 101.5 degrees Fahrenheit, and additional compatible Ebola Virus Disease symptoms Patient denies exposure to infectious person Patient denies travel to an Ebola-affected area in the 21 days before illness onset No symptoms or risks identified at this time. ROS: 15:03 Eyes: Negative for injury, pain, redness, and discharge, ENT: Negative for injury, jr8 pain, and discharge, Neck: Negative for injury, pain, and swelling, Respiratory: Negative for shortness of breath, cough, wheezing, and pleuritic chest pain, Abdomen/GI: Negative for abdominal pain, nausea, vomiting, diarrhea, and constipation, Back: Negative for injury and pain, MS/Extremity: Negative for injury and deformity, Skin: Negative for injury, rash, and discoloration, Neuro: Negative for headache, weakness, numbness, tingling, and seizure. 15:03 Cardiovascular: Positive for edema, Negative for chest pain, orthopnea, palpitations, paroxysmal nocturnal dyspnea. Exam: 15:03 Eyes: Pupils equal round and reactive to light, extra-ocular motions intact. Lids and jr8 lashes normal. Conjunctiva and sclera are non-icteric and not injected. Cornea within normal limits. Periorbital areas with no swelling, redness, or edema. ENT: Nares patent. No nasal discharge, no septal abnormalities noted. Tympanic membranes are normal and external auditory canals are clear. Oropharynx with no redness, swelling, or masses, exudates, or evidence of obstruction, uvula midline. Mucous membranes moist. Neck: Trachea midline, no thyromegaly or masses palpated, and no cervical lymphadenopathy. Supple, full range of motion without nuchal rigidity, or vertebral point tenderness. No Meningismus. Respiratory: Lungs have equal breath sounds bilaterally, clear to auscultation and percussion. No rales, rhonchi or wheezes noted. No increased work of breathing, no retractions or nasal flaring. Abdomen/GI: Soft, non-tender, with normal bowel sounds. No distension or tympany. No guarding or rebound. No evidence of tenderness throughout. Back: No spinal tenderness. No costovertebral tenderness. Full range of motion. Skin: Warm, dry with normal turgor. Normal color with no rashes, no lesions, and no evidence of cellulitis. MS/ Extremity: Pulses equal, no cyanosis. Neurovascular intact. Full, normal range of motion. Neuro: Awake and alert, GCS 15, oriented to person, place, time, and situation. Cranial nerves II-XII grossly intact. Motor strength 5/5 in all extremities. Sensory grossly intact. Cerebellar exam normal. Normal gait. 15:03 Cardiovascular: Rate: normal, Rhythm: regular, Pulses: Pulses are 2+ in right radial artery and left radial artery. Heart sounds: normal, normal S1and S2, no S3 or S4, no murmur, no rub, no gallop, Edema: 3+ edema to level of left midcalf, left ankle, left foot, left toes, right midcalf, right ankle, right foot and right toes, JVD: is not appreciated. 15:03 ECG was reviewed by the Attending Physician. Vital Signs: 13:43 BP 236 / 85; ph 13:43 Pulse 78; Resp 19 S; Temp 97.6; Pulse Ox 95% on R/A; Weight 97.52 kg; Pain 0/10; ph 14:33 BP 216 / 116; Pulse 60; Resp 21; Pulse Ox 97% ; sv 15:33 BP 203 / 77; Pulse 68; Resp 22; Pulse Ox 96% on R/A; ph 16:33 BP 177 / 67; Pulse 57; Resp 16; Pulse Ox 100% on R/A; ph 17:01 BP 174 / 63; Pulse 59; Resp 20; Temp 97.8; Pulse Ox 98% on R/A; ph MDM: 13:33 Patient medically screened. [facility] 15:03 Data reviewed: vital signs, nurses notes, lab test result(s), EKG, radiologic studies, jr plain films. Data interpreted: Pulse oximetry: on room air is 97 %. Interpretation: normal. Counseling: I had a detailed discussion with the patient and/or guardian regarding: the historical points, exam findings, and any diagnostic results supporting the discharge/admit diagnosis, lab results, radiology results, the need for further work-up and treatment in the hospital. 11/21 13:48 Order name: Basic Metabolic Panel; Complete Time: 14:50 [facility] 11/21 13:48 Order name: CBC with Diff; Complete Time: 14:44 [facility] 11/21 13:48 Order name: LFT's; Complete Time: 14:50 [facility] 11/21 13:48 Order name: Magnesium; Complete Time: 14:50 [facility] 11/21 13:48 Order name: NT PRO-BNP; Complete Time: 14:50 [facility] 11/21 13:48 Order name: PT-INR; Complete Time: 14:44 [facility] 11/21 13:48 Order name: Troponin (emerg Dept Use Only); Complete Time: 14:50 [facility] 11/21 16:49 Order name: CKMB Creatine Kinase MB EDAZ 11/21 16:49 Order name: Troponin I [facility] 11/21 17:25 Order name: Urinalysis [facility] 11/21 17:25 Order name: CBC with Automated Diff EDMS 11/21 17:25 Order name: CBC with Automated Diff [facility] 11/21 17:25 Order name: CKMB Creatine Kinase MB [facility] 11/21 17:25 Order name: CKMB Creatine Kinase MB [facility] 11/21 17:25 Order name: CKMB Creatine Kinase MB [facility] 11/21 17:25 Order name: Comprehensive Metabolic Panel [facility] 11/21 17:25 Order name: Comprehensive Metabolic Panel [facility] 11/21 17:25 Order name: Lipid Profile [facility] 11/21 17:25 Order name: Lipid Profile [facility] 11/21 17:25 Order name: Magnesium [facility] 11/21 17:25 Order name: Magnesium [facility] 11/21 17:25 Order name: Troponin I [facility] 11/21 13:48 Order name: XRAY Chest (1 view); Complete Time: 14:50 [facility] 11/21 13:48 Order name: EKG; Complete Time: 13:49 [facility] 11/21 13:48 Order name: Cardiac monitoring; Complete Time: 14:12 [facility] 11/21 13:48 Order name: EKG - Nurse/Tech; Complete Time: 14:37 [facility] 11/21 13:48 Order name: IV Saline Lock; Complete Time: 14:12 8 11/21 13:48 Order name: Labs collected and sent; Complete Time: 14:12 8 11/21 13:48 Order name: O2 Per Protocol; Complete Time: 14:12 8 11/21 13:48 Order name: O2 Sat Monitoring; Complete Time: 14:12 [facility] 11/21 16:49 Order name: Heart Healthy [facility] 11/21 17:05 Order name: Echo without Doppler (2D) [facility] 11/21 17:26 Order name: Troponin I [facility] 11/21 17:26 Order name: Troponin I [facility] 11/21 17:26 Order name: CONS Physician Consult [facility] EC:03 Rate is 61 beats/min. Rhythm is regular, Normal Sinus Rhythm. QRS [place] is Normal. [place] jr8 interval is normal at 156 msec. QRS interval is normal at 92 msec. QT interval is normal at 461 msec. No Q waves. T waves are Inverted in leads I, aVL, V6. No ST changes noted. Clinical impression: Cardiac ischemia. Interpreted by me. Reviewed by me. Administered Medications: 15:13 Drug: hydrALAZINE 10 mg Route: IV; Rate: calculated rate; Site: right forearm; ph 15:45 Follow up: Response: No adverse reaction; Blood pressure is unchanged; IV Status: ph Completed infusion 15:17 Drug: Lasix 60 mg Route: IVP; Site: right forearm; ph 17:32 Follow up: Urine output 1000 ml; Response: No adverse reaction ph 16:05 Drug: Labetalol 10 mg Route: IVP; Site: right forearm; ph 16:45 Follow up: Response: No adverse reaction; Blood pressure is lowered ph 17:34 Not Given (Patient Refused): Lovenox 1 mg/kg Sub-Q once ph Disposition: 11/21/18 15:12 Hospitalization ordered by Katelin Velez for Inpatient Admission. Preliminary diagnosis are Abnormal electrocardiogram [ECG] [EKG], Acute systolic (congestive) heart failure, Elevated Troponin, Lower extremity Edema, Hypertensive heart and chronic kidney disease with heart failure and stage 1 through stage 4 chronic kidney disease, or unspecified chronic kidney disease. - Bed requested for Telemetry/MedSurg (Inpatient). - Status is Inpatient Admission. ph - Condition is Stable. - Problem is new. - Symptoms are unchanged. UTI on Admission? No Addendum: 11/26/2018 23:04 Co-signature as Attending Physician, Andres Saunders MD. g s Signatures: Dispatcher [employer] EDWang Clifford RN RN sg Solis, Maria ms Roszak, Josh, PA PA jr8 Nena Mccain RN RN ph Starr, Gregory, MD MD Corrections: (The following items were deleted from the chart) 11/21 16:50 15:12 Hospitalization Ordered by Katelin Velez MD for Inpatient Admission. Preliminary ms diagnosis is Abnormal electrocardiogram [ECG] [EKG]; Acute systolic (congestive) heart failure; Elevated Troponin; Lower extremity Edema; Hypertensive heart and chronic kidney disease with heart failure and stage 1 through stage 4 chronic kidney disease, or unspecified chronic kidney disease. Bed requested for Telemetry/MedSurg (Inpatient). Status is Inpatient Admission. Condition is Stable. Problem is new. Symptoms are unchanged. UTI on Admission? No. jr8 17:22 17:00 CBC with Automated Diff ordered. [facility]Z EDMS 17:23 16:59 Protime (+INR) ordered. EDAZ EDMS 17: 16:59 PTT, Activated Partial Thromb ordered. EDMS EDMS 17:23 17:00 Platelet Count ordered. EDMS EDMS 17:24 16:59 PTT, Activated Partial Thromb ordered. EDMS EDMS 17:24 16:59 PTT, Activated Partial Thromb ordered. EDAZ EDMS 17:24 16:59 PTT, Activated Partial Thromb ordered. EDMS EDMS 17:24 16:59 PTT, Activated Partial Thromb ordered. [facility] EDMS 17:38 16:50 11/21/2018 15:12 Hospitalization Ordered by Katelin Velez MD for Inpatient Admission. Preliminary diagnosis is Abnormal electrocardiogram [ECG] [EKG]; Acute systolic (congestive) heart failure; Elevated Troponin; Lower extremity Edema; Hypertensive heart and chronic kidney disease with heart failure and stage 1 through stage 4 chronic kidney disease, or unspecified chronic kidney disease. Bed requested for Telemetry/MedSurg (Inpatient). Status is Inpatient Admission. Condition is Stable. Problem is new. Symptoms are unchanged. UTI on Admission? No. ms
--- NOTE | 2018-11-21 15:13 | ER ---
Nurse's Notes [facility] Name: Marilyn Cruz Age: 68 yrs Sex: Female : 1950 Arrival Date: 11/21/2018 Time: 13:28 Bed 6 Private MD: Diagnosis: Abnormal electrocardiogram [ECG] [EKG];Acute systolic (congestive) heart failure;Elevated Troponin;Lower extremity Edema;Hypertensive heart and chronic kidney disease with heart failure and stage 1 through stage 4 chronic kidney disease, or unspecified chronic kidney disease Presentation: 11/21 13:43 Presenting complaint: Patient states: Feet swelling for several months, was started on sg medication for heart failure but cant remember what the medication is and cant remember to take it, reports feeling tired after walking and getting short of breath. Transition of care: patient was not received from another setting of care. Onset of symptoms was November 21, 2018. Risk Assessment: Do you want to hurt yourself or someone else? Patient reports no desire to harm self or others. Initial Sepsis Screen: Does the patient meet any 2 criteria? No. Patient's initial sepsis screen is negative. Does the patient have a suspected source of infection? No. Patient's initial sepsis screen is negative. Care prior to arrival: None. 13:43 Method Of Arrival: Ambulatory sg 13:43 Acuity: JAKOB 3 sg Historical: - Allergies: 13:45 INSULINS; ph 13:45 INSULINS; sg - Home Meds: 13:45 Farxiga 10 mg Oral tab 1 tab once daily [Active]; hydralazine 25 mg Oral tab 1 tab 2 ph times per day [Active]; - PMHx: 13:45 Diabetes - NIDDM; Hypertension; ph 13:45 Diabetes - NIDDM; Hypertension; CHF; sg - PSHx: 13:45 None; sg - Immunization history:: Adult Immunizations not up to date. - Social history:: Smoking status: Patient/guardian denies using tobacco. - Ebola Screening: : Patient negative for fever greater than or equal to 101.5 degrees Fahrenheit, and additional compatible Ebola Virus Disease symptoms Patient denies exposure to infectious person Patient denies travel to an Ebola-affected area in the 21 days before illness onset No symptoms or risks identified at this time. Screenin:45 Abuse screen: Denies threats or abuse. Denies injuries from another. Nutritional ph screening: No deficits noted. Tuberculosis screening: No symptoms or risk factors identified. Fall Risk None identified. Assessment: 14:14 General: Appears in no apparent distress. comfortable, well groomed, Behavior is calm, ph cooperative, appropriate for age, Denies fever, feeling ill. Pain: Denies pain. Neuro: Level of Consciousness is awake, alert, obeys commands, Oriented to person, place, time, situation. Cardiovascular: Reports fatigue, nausea, shortness of breath, vomiting, Denies chest pain, palpitations, Capillary refill < 3 seconds in bilateral fingers Patient's skin is warm and dry. Edema is 2+ to left ankle, left foot, left toes, right ankle, right foot and right toes. Respiratory: Reports shortness of breath on exertion Airway is patent Respiratory effort is even, unlabored. GI: Reports nausea, vomiting, Patient currently denies abdominal pain, diarrhea. Derm: Skin is intact, is healthy with good turgor, Skin is pink, warm \T\ dry. Musculoskeletal: Circulation, motion, and sensation intact. Range of motion: intact in all extremities. 15:30 Reassessment: Patient appears in no apparent distress at this time. Patient and/or ph family updated on plan of care and expected duration. Pain level reassessed. Patient is alert, oriented x 3, equal unlabored respirations, skin warm/dry/pink. 16:30 Reassessment: Patient appears in no apparent distress at this time. Patient and/or ph family updated on plan of care and expected duration. Pain level reassessed. Patient is alert, oriented x 3, equal unlabored respirations, skin warm/dry/pink. Pt reports that SOB is improving, approx 900 mL urine output collected from bedside commode, BP also improved w/ systolic 170s, awaiting room assignment. 17:35 Reassessment: Patient appears in no apparent distress at this time. Patient and/or ph family updated on plan of care and expected duration. Pain level reassessed. Patient is alert, oriented x 3, equal unlabored respirations, skin warm/dry/pink. Report called to Hayley RN, pt taken to 4th floor via wheelchair. Vital Signs: 13:43 BP 236 / 85; ph 13:43 Pulse 78; Resp 19 S; Temp 97.6; Pulse Ox 95% on R/A; Weight 97.52 kg; Pain 0/10; ph 14:33 BP 216 / 116; Pulse 60; Resp 21; Pulse Ox 97% ; sv 15:33 BP 203 / 77; Pulse 68; Resp 22; Pulse Ox 96% on R/A; ph 16:33 BP 177 / 67; Pulse 57; Resp 16; Pulse Ox 100% on R/A; ph 17:01 BP 174 / 63; Pulse 59; Resp 20; Temp 97.8; Pulse Ox 98% on R/A; ph ED Course: 13:28 Patient arrived in ED. as 13:33 Mau Dunaway PA is PHCP. jr8 13:33 Andres Saunders MD is Attending Physician. jr8 13:43 Nena Mccain, ILENE is Primary Nurse. ph 13:44 Triage completed. sg 13:45 Arm band placed on Patient placed in an exam room, on a stretcher. ph 13:45 Patient has correct armband on for positive identification. Bed in low position. Call ph light in reach. Side rails up X 1. Pulse ox on. NIBP on. 14:05 Initial lab(s) drawn, by nj, sent to lab. Inserted saline lock: 22 gauge in right ph forearm, using aseptic technique. Blood collected. 14:26 EKG done, by ED staff, reviewed by Mau MESSINA. dh3 14:36 XRAY Chest (1 view) In Process Unspecified. EDMS 14:48 Notified Nurse Practitioner and/or Physician Communications Tower Climber of a critical lab result(s), sg troponin elevated. 15:10 Katelin Velez MD is Hospitalizing Provider. jr8 15:34 No provider procedures requiring assistance completed. Patient admitted, IV remains in ph place. Administered Medications: 15:13 Drug: hydrALAZINE 10 mg Route: IV; Rate: calculated rate; Site: right forearm; ph 15:45 Follow up: Response: No adverse reaction; Blood pressure is unchanged; IV Status: ph Completed infusion 15:17 Drug: Lasix 60 mg Route: IVP; Site: right forearm; ph 17:32 Follow up: Urine output 1000 ml; Response: No adverse reaction ph 16:05 Drug: Labetalol 10 mg Route: IVP; Site: right forearm; ph 16:45 Follow up: Response: No adverse reaction; Blood pressure is lowered ph 17:34 Not Given (Patient Refused): Lovenox 1 mg/kg Sub-Q once ph Output: 16:21 Urine: 900ml (Voided); Total: 900ml. ph 17:32 Urine: 1000ml; Total: 1900ml. ph Outcome: 15:12 Decision to Hospitalize by Provider. braeden 17:37 Admitted to Tele accompanied by tech, via wheelchair, room 425, with chart, Report ph called to Hayley ODOM 17:37 Condition: stable 17:37 Instructed on the need for admit. 17:38 Patient left the ED. ph Signatures: Dispatcher [employer] EDMackenzie Hollins RN RN sv Gay, Steven, RN RN sg Martinez, Amelia as Roszak, Josh, PA PA jr8 Nena Mccain RN RN Sherri Rose 3 Corrections: (The following items were deleted from the chart) 14:49 14:48 Notified Nurse Practitioner and/or Physician Communications Tower Climber of sg sg 15:56 13:43 Pulse 78bpm; Resp 19bpm; Spontaneous; Pulse Ox 95% RA; Temp 97.6F; 97.52 kg; Pain ph 0/10; sg
[2018-11-21] MEDS ORDERED: ENOXAPARIN 100 MG/ML SYR SQ ONE (16:11)
[2018-11-21] MEDS ORDERED: LABETALOL 20 MG/4ML SYRINGE IV ONE (16:11)
[2018-11-21] MEDS ORDERED: METOPROLOL TARTRATE 5 MG/5 ML INJ IV PRN (16:42)
[2018-11-21] MEDS ORDERED: HEPARIN 10,000 UNIT/10 ML VIAL IV ONE ×2 (16:54→19:00)
[2018-11-21] MEDS: FUROSEMIDE 40 MG/4 ML VIAL IV SCH (17:00)
[2018-11-21] MEDS ORDERED: ASPIRIN EC 81 MG TAB PO SCH (17:00)
[2018-11-21] MEDS ORDERED: HEPARIN 10,000 UNIT/10 ML VIAL IV PRN ×2 (18:00→18:41)
[2018-11-21] MEDS ORDERED: HEPARIN/D5W 25,000 UNIT/500 ML BAG IV PRN (18:00)
[2018-11-21] MEDS: HEPARIN/D5W 25,000 UNIT/500 ML BAG IV PRN (19:15)
--- NOTE | 2018-11-21 19:27 | P.HP ---
Patient History Date of Service: 11/21/18 Reason for admission: b/l lower ext swelling History of Present Illness: 68 y/o woman with pmhx of HTn,diastolic chf,DM type 2,HLD,CKD presented to ER with b/l lower ext swelling for the last few months,pt was seen by her PCP yesterday who recommended to go to ER ,pt denied Chest pain,palpitation or SOb, in ER pt had elevated BP with elevated troponin and new t wave inversion in lateral leads ,pt was started on lovenox therapeutic dose for NSTEMI Allergies hydralazine Adverse Reaction (Verified 07/20/18 03:26) Nausea/Vomiting Insulins Adverse Reaction (Verified 11/21/18 18:12) Nausea/Vomiting Home Medications: RX: Hydralazine [Apresoline*] 25 mg PO BID 07/19/18 Furosemide 40 mg PO BID 11/21/18 RX: Losartan Potassium 100 mg PO DAILY 11/21/18 - Past Medical/Surgical History Has patient received pneumonia vaccine in the past: No Diabetic: Yes -: DM -: HTN -: CHF -: CSections - Family History Father -: Other (see notes) Notes: father fell and fractured hip Mother -: Lung disease - Social History Smoking Status: Never smoker Alcohol use: No CD- Drugs: No Caffeine use: Yes Place of Residence: Home Review of Systems 10-point ROS is otherwise unremarkable Physical Examination - Vital Signs Temperature: 98.4 F Blood Pressure: 198/69 Pulse: 59 Respirations: 16 Pulse Ox (%): 95 - Physical Exam General: Alert, In no apparent distress, Oriented x3 HEENT: Atraumatic, Normocephalic, PERRLA Neck: Supple, 2+ carotid pulse no bruit Respiratory: Clear to auscultation bilaterally, Normal air movement Cardiovascular: Regular rate/rhythm, Normal S1 S2, Edema Gastrointestinal: Normal bowel sounds, Soft and benign, Non-distended Musculoskeletal: No erythema, No tenderness, Swelling Integumentary: No rashes Neurological: Normal speech, Normal strength at 5/5 x4 extr, Sensation intact - Studies Laboratory Data (last 24 hrs) 11/21/18 17:00: APTT Cancelled 11/21/18 16:54: PT Cancelled, INR Cancelled, APTT Cancelled 11/21/18 16:54: WBC Cancelled, Hgb Cancelled, Hct Cancelled, Plt Count Cancelled 11/21/18 14:05: PT 11.7, INR 0.99 11/21/18 14:05: WBC 6.7, Hgb 11.8 L, Hct 34.7 L, Plt Count 208 11/21/18 14:05: Sodium 145, Potassium 4.1, BUN 31 H, Creatinine 1.70 H, Glucose 110 H, Magnesium 2.1, Total Bilirubin 0.4, AST 17, ALT 18, Alkaline Phosphatase 122 H Assessment and Plan - Problems (Diagnosis) (1) Elevated troponin Onset Date: 04/01/18 Current Visit: Yes Status: Acute (2) Hyperlipidemia Current Visit: No Status: Acute Qualifiers: Hyperlipidemia type: mixed hyperlipidemia Qualified Code(s): E78.2 - Mixed hyperlipidemia (3) Hypertension Current Visit: Yes Status: Acute Qualifiers: Hypertension type: essential hypertension Qualified Code(s): I10 - Essential (primary) hypertension (4) CHF (congestive heart failure) Onset Date: 04/01/18 Current Visit: Yes Status: Chronic Qualifiers: Heart failure type: diastolic Heart failure chronicity: chronic Qualified Code(s): I50.32 - Chronic diastolic (congestive) heart failure (5) Diabetes mellitus Current Visit: Yes Status: Chronic Qualifiers: Diabetes mellitus type: type 2 Diabetes mellitus joint terminal attack controller insulin use: without residential use Diabetes mellitus complication status: with hyperglycemia Qualified Code(s): E11.65 - Type 2 diabetes mellitus with hyperglycemia (6) Hypertensive heart disease Current Visit: No Status: Chronic - Plan assessment/plan: hypertensive emergency KEY on CKD elevated troponin could be due to NSTEMi VS demand ischemia NSTEMI HLD DM type 2 b/l lower ext swelling due to acute on chronic diastolic CHF plan: labetolol 10 mg IVP prn metoprolol 25 mg bid hold losartan nephrology consult heparin drip ASA,BB,statin serial CE and EKG cardiology consulted ,discussed with DR Cedeno lasix 40 mg iv bid I &O daily weight f/up dvt study hold hydralazine (worsening of leg edema ) dvt ppx - Advance Directives Does patient have a Living Will: No Does patient have a Durable POA for Healthcare: No
[2018-11-21 19:30] LABS: CKMB Creatine Kinase MB 2.5 ng/mL (0.3-3.6)
[2018-11-21 19:39] LABS: Troponin I 0.7 ng/mL (0.0-0.045)
[2018-11-21] MEDS: INSULIN -REGULAR HUMAN 50 UNIT/0.5 ML ML SQ SCH (20:05)
[2018-11-21] MEDS: ATORVASTATIN 40 MG TAB PO SCH (20:05)
[2018-11-22 02:59] LABS: Absolute Lymphocytes (CBC) 2.4 K/uL (0.7-4.9); Absolute Monocytes 0.4 K/uL (0.1-1.3); Absolute Neutrophil 3.3 K/uL (1.8-8.0); Basophils % 0.9 % (0-1.3); Eosinophils % 1.8 % (0-4.4); Hematocrit 30.5 % (36.0-45.0); Lymphocytes % 38.6 % (15.3-44.8); MPV 8.9 fL (7.6-11.3); Monocytes % 6.6 % (3.3-12.3); RBC Red Blood Cell Count 3.61 M/uL (3.86-4.86)
[2018-11-22 03:20] LABS: Albumin 2.4 g/dL (3.4-5.0); Bilirubin Total 0.2 mg/dL (0.2-1.0); Phosphorus 4.2 mg/dL (2.5-4.9); Potassium 3.6 mmol/L (3.5-5.1); Protein, Total 5.4 g/dL (6.4-8.2)
[2018-11-22 03:25] LABS: Troponin I 0.62 ng/mL (0.0-0.045)
[2018-11-22] MEDS ORDERED: METOPROLOL TAR 25 MG TAB PO SCH (06:00)
--- NOTE | 2018-11-22 06:20 | EKG ---
Test Date: 2018-11-21 Test Time: 14:26:54 Electronic Engraver: SHANE MEASUREMENT RESULTS: Intervals: Rate: 61 NJ: 156 QRSD: 92 QT: 458 QTc: 461 [place]: P: 71 [place]: 156 QRS: 0 T: 154 INTERPRETIVE STATEMENTS: Normal sinus rhythm T wave abnormality, consider lateral ischemia Abnormal ECG Compared to ECG 07/19/2018 17:24:07 T-wave abnormality now present Sinus tachycardia no longer present ST (T wave) deviation no longer present Possible ischemia still present Electronically Signed On 11-22-18 06:19:55 CDT by Cem Cedeno
[2018-11-22 06:24] VITALS: BMI 32.1
[2018-11-22] MEDS: INSULIN -REGULAR HUMAN 50 UNIT/0.5 ML ML SQ SCH ×4 (07:30→20:29)
[2018-11-22] MEDS ORDERED: GLUCAGON 1 MG/VIAL IM PRN (08:08)
[2018-11-22] MEDS ORDERED: D50W 25 GM/50 ML SYRINGE IV PRN (08:08)
[2018-11-22] MEDS ORDERED: POTASSIUM CL SA 10 MEQ TAB PO ONE (09:00)
[2018-11-22] MEDS: FUROSEMIDE 40 MG/4 ML VIAL IV SCH ×2 (09:33→17:25)
[2018-11-22] MEDS: METOPROLOL TAR 50 MG TAB PO SCH ×2 (09:34→17:25)
[2018-11-22 12:00] LABS: CKMB Creatine Kinase MB 1.9 ng/mL (0.3-3.6)
[2018-11-22] MEDS ORDERED: LACTULOSE 20 GM/30 ML UCUP PO ONE (12:00)
[2018-11-22 12:01] LABS: Troponin I 0.61 ng/mL (0.0-0.045)
--- NOTE | 2018-11-22 12:23 | P.PN ---
Subjective Date of Service: 11/22/18 Chief Complaint: b/l lower ext swelling pt seen and examined no overnight events b/l lower ext edema improved significantly sob imporved and pt feels better overall Review of Systems 10-point ROS is otherwise unremarkable Physical Examination - Vital Signs Temperature: 98.8 F Blood Pressure: 168/72 Pulse: 63 Respirations: 16 Pulse Ox (%): 94 - Physical Exam General: Alert, In no apparent distress, Oriented x3 HEENT: Atraumatic, Normocephalic, PERRLA Neck: Supple, JVD not distended Respiratory: Clear to auscultation bilaterally, Normal air movement Cardiovascular: No edema, Normal pulses, Regular rate/rhythm, Normal S1 S2 Gastrointestinal: Normal bowel sounds, Soft and benign, Non-distended Musculoskeletal: No clubbing, No swelling, No erythema, No tenderness Integumentary: No rashes Neurological: Normal speech, Normal strength at 5/5 x4 extr - Studies Laboratory Data (last 24 hrs) 11/21/18 17:00: APTT Cancelled 11/21/18 16:54: PT Cancelled, INR Cancelled, APTT Cancelled 11/21/18 16:54: WBC Cancelled, Hgb Cancelled, Hct Cancelled, Plt Count Cancelled 11/21/18 14:05: PT 11.7, INR 0.99 11/21/18 14:05: WBC 6.7, Hgb 11.8 L, Hct 34.7 L, Plt Count 208 11/21/18 14:05: Sodium 145, Potassium 4.1, BUN 31 H, Creatinine 1.70 H, Glucose 110 H, Magnesium 2.1, Total Bilirubin 0.4, AST 17, ALT 18, Alkaline Phosphatase 122 H Assessment And Plan - Current Problems (Diagnosis) (1) Elevated troponin Onset Date: 04/01/18 Current Visit: Yes Status: Acute (2) Hyperlipidemia Current Visit: No Status: Acute Qualifiers: Hyperlipidemia type: mixed hyperlipidemia Qualified Code(s): E78.2 - Mixed hyperlipidemia (3) Hypertension Current Visit: Yes Status: Acute Qualifiers: Hypertension type: essential hypertension Qualified Code(s): I10 - Essential (primary) hypertension (4) CHF (congestive heart failure) Onset Date: 04/01/18 Current Visit: Yes Status: Chronic Qualifiers: Heart failure type: diastolic Heart failure chronicity: chronic Qualified Code(s): I50.32 - Chronic diastolic (congestive) heart failure (5) Diabetes mellitus Current Visit: Yes Status: Chronic Qualifiers: Diabetes mellitus type: type 2 Diabetes mellitus senior living insulin use: without moth exterminator use Diabetes mellitus complication status: with hyperglycemia Qualified Code(s): E11.65 - Type 2 diabetes mellitus with hyperglycemia (6) Hypertensive heart disease Current Visit: No Status: Chronic - Plan assessment/plan: hypertensive emergency KEY on CKD elevated troponin could be due to NSTEMi VS demand ischemia NSTEMI HLD DM type 2 b/l lower ext swelling due to acute on chronic diastolic CHF plan: labetolol 10 mg IVP prn metoprolol 50 mg bid hold losartan nephrology consult heparin drip ASA,BB,statin serial CE and EKG cardiology consulted ,discussed with DR Cedeno lasix 40 mg iv bid I &O daily weight hold hydralazine (worsening of leg edema ) dvt ppx
[2018-11-22] MEDS: glipiZIDE 5 MG TAB PO SCH (13:25)
--- NOTE | 2018-11-22 16:21 | CON ---
Date of Consultation: 11/22/2018 Consulting Physician: Dr. Thomason. Reason For Consultation: Elevated BUN and creatinine, fluid management. History Of Present Illness: This is a pleasant 68-year-old female with significant past medical hist ory of diabetes for more than 20 years, complicated with neuropathy, no retinopathy, hypertension mor e than 30 years, hyperlipidemia. The patient came to the hospital complaining of chest pain, chest t ightness, and shortness of breath; found to have elevated blood pressure and elevated troponin. For that reason, the patient admitted. Primary workup showed elevation in BUN and creatinine. For that reason, we have been consulted. The patient denied taking nonsteroids. Denied any IV contrast. No recent change in her medication. Reviewing the record for the patient, her creatinine back in 2018; it is 1.9 and it was before 1.3. Past Medical History: 1.Diabetes complicated with neuropathy, no retinopathy. 2.Hypertension. 3.Hyperlipidemia. 4.Chronic kidney disease, stage 3, baseline creatinine 1.3-1.5. Back in July 2018. Allergies: TO HYDRALAZINE AND INSULIN. Surgical History: Include . Family History: Positive for diabetes and hypertension with lung disease. Social History: Denies smoking. Denied drinking. Denied drug abuse. Physical Review Of Systems: Head and Neck: No red eye. No ear pain. GI: No nausea, no vomiting. : No polyuria, no dysuria, no hematuria. 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 Respiratory: Has shortness of breath. Cardiovascular: Has orthopnea, has leg swelling. Endocrine: No polydipsia. Skin: No rash. Neuro: Has neuropathy. Musculoskeletal: No leg pain, no low back pain. Home Medications: Include losartan, hydralazine, and furosemide. Current Medications In The Hospital: Include Lasix, insulin, metoprolol. Physical Examination: Vital Signs: When I saw the patient, blood pressure 168/72, pulse of 63. Chest: Faint crackles on the base. Heart: S1, S2. Regular. Systolic murmur. Abdomen: Soft, nontender. Extremities: +2 edema. Laboratory Data: Sodium 143, potassium 3.6, bicarb 25, BUN 33, creatinine 1.8, GFR of 27, calcium 8. 1, phosphorus 4.2, TSH 4.9. Urinalysis; specific gravity of 1.010, +2 protein, negative for infectio n. Chest x-ray, cardiomegaly with congestion. Assessment And Plan: 1.Acute kidney injury on chronic kidney disease secondary to cardiorenal and diabetes nephropathy, l ooked to me still on the over volume side. I agree with the current diuresis dose. I am going to go ahead and send for protein creatinine, and we will send for PTH and renal ultrasound. Given the pre sence of anemia, I am going to go ahead and send for anemia workup and serum protein electrophoresis to rule out any light chain disease. If labs show significant proteinuria at that time, we will send for the serology; otherwise, currently I do not see the need to send for serology given no activity on the urine. 2.Hypertension, controlled, not optimal. We will utilize blood pressure for more diuresis. 3.Qbv-WD-sydwwfaoc myocardial infarction, congestive heart failure as by primary. We will optimize her fluid status. 4.Diabetes, as by primary. NASIM/RENÉ Voice ID: [id number] Report ID: [id number]
--- NOTE | 2018-11-22 16:44 | CON ---
Ms. Cruz is 68. She came to the hospital because her legs were swollen. She was not having chest p ain or shortness of breath. She has abnormal troponins and that is why I am consulted. Ms. Cruz palm d a very similar picture several months ago. She was in our hospital. She was angry at that time, t his time she is not. She was angry because she had been in another hospital and they had frustrated her and have not given her enough diuretics. Now, she has added another doctor, because they did not give her enough diuretics, but not as angry. She refused a lot of testing, but she did have an echo cardiogram last visit. Echocardiogram date was April 02, 2018. She had a normal ejection fracti on, left ventricular hypertrophy, aortic sclerosis without aortic stenosis or regurgitation, and ther e was poor left ventricular compliance. She went home on diuretics and did well until recently. Pre sently, she does not have much edema. She seems happy this morning. Medications: The patient's outpatient medications have been hydralazine, furosemide, and losartan. Physical Examination: General: On physical exam, she is 5 feet 1 inches, 170 pounds. Alert, oriented, pleasant, not in di stress. Lungs: Clear. Heart: Within normal limits. Extremities: Trace edema. Distal pulses palpable. The patient does not use alcohol or illegal drugs. Her troponin levels have been up every time it palm s been measured including last March once in between. Her troponin levels are all just about the same all 3, not a typical rise and fall pattern as seen with an acute coronary syndrome. I would re commend we do a pharmacologic nuclear stress test, echo again before jumping towards doing a heart ca theterization. I do not think that would give us any information we can get from a stress test. She certainly is not an unstable angina patient. I would like to understand why the troponins are alway s up in her. It may be from diastolic dysfunction of the heart, but I am uncomfortable with that dom gnosis. I think she simply has some kind of abnormality of the troponin itself. The next measuremen t that we get would be offset, so before proceeding with a heart catheterization which would put her at some risk with a renal dysfunction, we will do a noninvasive testing if she will consent to it. YOLANDA/RENÉ Voice ID: [id number] Report ID: [id number]
[2018-11-22] MEDS ORDERED: PNEUMOCOCCAL VACCINE 0.5 ML IMVAC ONE (18:30)
[2018-11-22] MEDS ORDERED: POLYETHYL GLY 3350 17 GM/DOSE PO ONE (19:36)
[2018-11-22] MEDS: ATORVASTATIN 40 MG TAB PO SCH (20:28)
--- NOTE | 2018-11-22 20:46 | RAD REPORT ---
EXAM DESCRIPTION: US - Renal Ultrasound-Complete - 11/22/2018 8:39 pm CLINICAL HISTORY: KEY Flank pain COMPARISON: Renal Ultrasound-Complete dated 04/02/2018 FINDINGS: Both kidneys are mildly echogenic. The right kidney measures 10.9 x 6.0 x 4.7 cm. No hydronephrosis, focal mass or perinephric fluid. The left kidney measures 10.5 x 5.0 x 4.5 cm. No hydronephrosis, focal mass or perinephric fluid. The urinary bladder is incompletely distended without gross abnormality seen. IMPRESSION: Mildly echogenic kidneys without hydronephrosis, compatible with underlying medical vernell l disease.
[2018-11-23] MEDS: HEPARIN/D5W 25,000 UNIT/500 ML BAG IV PRN (03:07)
[2018-11-23 03:53] LABS: Urine Appearance CLEAR; Urine Bilirubin NEGATIVE (NEG); Urine Blood NEGATIVE (NEG); Urine Color YELLOW; Urine Glucose NEGATIVE (NEG); Urine Protein 3+ (NEG); Urine Urobilinogen 0.2 mg/dL (0.2-1.0); Urine pH 5.5 (5.0-7.0)
[2018-11-23 04:01] LABS: Urine Protein/Creatinine Ratio 8.84 ratio (<0.15)
[2018-11-23 04:06] LABS: Urine Microscopic Reflex ORDER UMIC
[2018-11-23 05:56] LABS: Urine Bacteria <20 /HPF (<20); Urine Culture Reflex Order NOT NEEDED; Urine RBC NONE SEEN /HPF (NONE SEEN)
[2018-11-23] MEDS: METOPROLOL TAR 50 MG TAB PO SCH ×2 (06:00→18:00)
[2018-11-23] MEDS ORDERED: HYDRALAZINE HCL 20 MG/ML VIAL IV ONE (06:05)
[2018-11-23 06:12] LABS: RBC Red Blood Cell Count 3.81 M/uL (3.86-4.86)
[2018-11-23 06:41] LABS: Albumin 2.5 g/dL (3.4-5.0); Ferritin 129.5 ng/mL (8-388); Folic Acid, (Folate) 18.3 ng/mL (3.1-17.5); Potassium 3.6 mmol/L (3.5-5.1); Uric Acid 7.9 mg/dL (2.6-6.0)
[2018-11-23 06:42] LABS: Thyroid Stimulating Hormone 4.42 uIU/mL (0.360-3.740)
[2018-11-23] MEDS: INSULIN -REGULAR HUMAN 50 UNIT/0.5 ML ML SQ SCH ×3 (07:30→16:30)
[2018-11-23] MEDS: glipiZIDE 5 MG TAB PO SCH (08:00)
[2018-11-23] MEDS: FUROSEMIDE 40 MG/4 ML VIAL IV SCH ×2 (08:37→18:21)
[2018-11-23] MEDS ORDERED: REGADENOSON 0.4 MG/5 ML SYR IV ONE (08:39)
[2018-11-23] MEDS ORDERED: POTASSIUM CL SA 10 MEQ TAB PO ONE (10:00)
[2018-11-23 10:39] VITALS: O2SAT 93
--- NOTE | 2018-11-23 11:32 | P.DS ---
Admission Date: 11/21/18 Discharge Date: 11/23/18 Disposition: ROUTINE DISCHARGE Discharge Condition: GOOD Reason for Admission: b/l lower ext swelling Consultations: Nephrology Cardiology - Problems (1) KEY (acute kidney injury) Current Visit: Yes Status: Acute (2) Elevated troponin Onset Date: 04/01/18 Current Visit: Yes Status: Chronic (3) CHF (congestive heart failure) Onset Date: 04/01/18 Current Visit: Yes Status: Chronic Qualifiers: Heart failure type: diastolic Heart failure chronicity: acute Qualified Code(s): I50.31 - Acute diastolic (congestive) heart failure (4) Hypertension Current Visit: Yes Status: Chronic Qualifiers: Hypertension type: essential hypertension Qualified Code(s): I10 - Essential (primary) hypertension (5) Diabetes mellitus Current Visit: Yes Status: Chronic Qualifiers: Diabetes mellitus type: type 2 Diabetes mellitus senior living insulin use: without middle or intermediate school principal use Diabetes mellitus complication status: with hyperglycemia Qualified Code(s): E11.65 - Type 2 diabetes mellitus with hyperglycemia (6) Hyperlipidemia Current Visit: No Status: Chronic Qualifiers: Hyperlipidemia type: mixed hyperlipidemia Qualified Code(s): E78.2 - Mixed hyperlipidemia Brief History of Present Illness: 68 y/o woman with pmhx of HTn,diastolic chf,DM type 2,HLD,CKD presented to ER with b/l lower ext swelling for the last few months,pt was seen by her PCP yesterday who recommended to go to ER ,pt denied Chest pain,palpitation or SOb, in ER pt had elevated BP with elevated troponin and new t wave inversion in lateral leads ,pt was started on lovenox therapeutic dose for NSTEMI Hospital Course: Overall during this hospital stay patient remained stable Patient was initially admitted to the hospital for bilateral lower extremity edema and for evaluation of CHF along with elevated troponin. Cardiology and nephrology was consulted here in the hospital. For patient's congestive heart failure and elevated troponin, patient was started on IV Lasix while here in the hospital. Cardiology recommended the patient have an echo and stress test done. Cardiology doubts that the elevated troponin is anything to do with acute coronary syndrome at this time as patient does have a similar pattern of elevated troponins in the past as well. Patient had stress test done here in the hospital which was within normal limits and thus cardiology recommended at that time patient can be discharged home. Patient's echocardiogram was consistent with diastolic dysfunction. Patient was also found to have acute kidney injury while here in the hospital on top of her chronic kidney disease. Patient had nephrology consulted here in the hospital, patient had extensive lab work for her KEY which were all suggestive of diabetic nephropathy. Kidney function did improve while here in the hospital. Once patient was adequately diuresed, and kidney function improved patient then was discharged home under stable condition. Patient was asked to resume taking her Lasix that she takes at home which was 40 mg daily. Was asked to follow up with cardiology in about 1-2 days post discharge as well. Patient was also asked to follow up with kidney doctor in about 1-2 days post discharge is well. Patient demonstrate understanding and thus was discharged home under stable condition Vital Signs/Physical Exam: Temp Pulse Resp BP Pulse Ox 98.1 F 60 22 H 185/78 H 93 11/23/18 08:00 11/23/18 08:37 11/23/18 08:00 11/23/18 08:37 11/23/18 08:00 General: Alert, In no apparent distress HEENT: Atraumatic, PERRLA, EOMI Neck: Supple, JVD not distended Respiratory: Clear to auscultation bilaterally, Normal air movement Cardiovascular: Regular rate/rhythm, Normal S1 S2 Gastrointestinal: Normal bowel sounds, No tenderness Musculoskeletal: No tenderness Integumentary: No rashes Neurological: Normal speech, Normal tone, Normal affect Lymphatics: No axilla or inguinal lymphadenopathy Laboratory Data at Discharge: WBC 6.3 K/uL (4.3-10.9) 11/22/18 02:48 Hgb 10.4 g/dL (12.0-15.0) L 11/22/18 02:48 Hct 30.5 % (36.0-45.0) L 11/22/18 02:48 Plt Count 178 K/uL (152-406) 11/22/18 02:48 PT 11.7 SECONDS (9.5-12.5) 11/21/18 14:05 INR 0.99 11/21/18 14:05 APTT 40.9 SECONDS (24.3-36.9) H 11/23/18 10:50 Sodium 144 mmol/L (136-145) 11/23/18 05:44 Potassium 3.6 mmol/L (3.5-5.1) 11/23/18 05:44 BUN 34 mg/dL (7-18) H 11/23/18 05:44 Creatinine 1.79 mg/dL (0.55-1.3) H 11/23/18 05:44 Glucose 86 mg/dL (74-106) 11/23/18 05:44 Uric Acid 7.9 mg/dL (2.6-6.0) H 11/23/18 05:44 Phosphorus 4.0 mg/dL (2.5-4.9) 11/23/18 05:44 Magnesium 2.0 mg/dL (1.8-2.4) 11/22/18 02:48 Total Bilirubin 0.2 mg/dL (0.2-1.0) 11/22/18 02:48 AST 11 U/L (15-37) L 11/22/18 02:48 ALT 15 U/L (12-78) 11/22/18 02:48 Alkaline Phosphatase 100 U/L (45-117) 11/22/18 02:48 Troponin I 0.61 ng/mL (0.0-0.045) H* 11/22/18 11:09 Triglycerides 225 mg/dL (<150) H 11/22/18 02:48 Cholesterol 206 mg/dL (<200) H 11/22/18 02:48 HDL Cholesterol 54 mg/dL (40-60) 11/22/18 02:48 Cholesterol/HDL Ratio 3.81 11/22/18 02:48 Home Medications: Hydralazine [Apresoline*] 25 mg PO BID 07/19/18 Furosemide 40 mg PO BID 11/21/18 Losartan Potassium 100 mg PO DAILY 11/21/18 Glipizide [Glipizide ER] 10 mg PO DAILY 11/22/18 Patient Discharge Instructions: Please followup with primary care provider along with nephrology in about 1-2 weeks post discharge. No new medication Diet: Regular Activity: Ad ashely Followup: Roseann Nieto MD [ACTIVE - CAN ADMIT] - Blaine Fernández MD [ACTIVE - CAN ADMIT] -
--- NOTE | 2018-11-23 13:11 | ECHO ---
HEIGHT: 5 ft 1 in WEIGHT: 175 lb 4.8 oz DATE OF STUDY: 11/23/[address]: Cem Cedeno MD 2-DIMENSIONAL: YES M.MODE: YES DOPPLER: YES COLOR FLOW: YES TDS: NO PORTABLE: NO DEFINITY: NO BUBBLE STUDY: NO DIAGNOSIS: CONGESTIVE HEART FAILURE CARDIAC HISTORY: CATHERIZATION: NO SURGERY: NO PROSTHETIC VALVE: NO PACEMAKER: NO MEASUREMENTS (cm) DIASTOLIC (NORMALS) SYSTOLIC (NORMALS) IVSd 1.3 (0.6-1.2) LA Diam 3.8 (1.9-4.0) LVEF 75% LVIDd 4.6 (3.5-5.7) LVIDs 2.6 (2.0-3.5) %FS 44% LVPWd 1.3 (0.6-1.2) Ao Diam 3.0 (2.0-3.7) 2 DIMENSIONAL ASSESSMENT: RIGHT ATRIUM: NORMAL LEFT ATRIUM: NORMAL RIGHT VENTRICLE: NORMAL LEFT VENTRICLE: LEFT VENTRICULAR HYPERTROPHY TRICUSPID VALVE: NORMAL MITRAL VALVE: NORMAL PULMONIC VALVE: NORMAL AORTIC VALVE: NORMAL PERICARDIAL EFFUSION: NONE AORTIC ROOT: NORMAL LEFT VENTRICULAR WALL MOTION: NORMAL. DOPPLER/COLOR FLOW: MILD AORTIC REGURGITATION AND TRICUSPID REGURGITATION. NORMAL RIGHT VENTRICULAR SYSTOLIC PRESSURE. COMMENTS: NORMAL LEFT VENTRICULAR EJECTION FRACTION AND WALL MOTION. LEFT VENTRICULAR HYPERTROPHY. MILD AORTIC REGURGITATION AND TRICUSPID REGURGITATION. TECHNOLOGIST: JUNIOR TAYLOR
--- NOTE | 2018-11-23 16:32 | RAD REPORT ---
EXAM DESCRIPTION: NM - Rest Stress Cardiac Imaging - 11/23/2018 4:14 pm CLINICAL HISTORY: Chest pain. COMPARISON: None. TECHNIQUE: The patient was administered approximately 10mCi of Tc 99m Sestamibi prior to resting SPE CT imaging of the heart. The patient was then administered approximately 30 mCi of Tc 99m Sestamibi f ollowing exercise or pharmacologic stress. Multiplanar SPECT images were reviewed. FINDINGS: There is uniformity of radiotracer uptake involving the entire left ventricular myocardiu m on rest and stress images. The left ventricular ejection fraction equals 56% IMPRESSION: Negative for a myocardial perfusion defect
[2018-11-23 17:51] VITALS: BP 184/63; TEMP 98.9
--- NOTE | 2018-11-24 09:00 | TREADPHA ---
DX: ABNORMAL TROPONIN Date of Study: 11/24/18 Ht: 5 1 Wt: 175 lb 4.8 oz Consulting Physician: MIKE MEDICATIONS: PROCRIT, NOVOLIN-R, APRESOLINE HISTORY: DIABETES MELLITUS, HYPERTENSION/ CONGESTIVE HEART FAILURE. 68 YEAR OLD FEMALE WITH COMPLAINTS OF CHEST PAIN, NON SMOKER, NON-DRINKER. PHYSICIAL EXAMINATION: RESTING B.P.: 193/69 RESTING H.R.: 65 RESTING EKG: NORMAL SINUS, NON SPECIFIC T WAVE ABNORMALITY. SINUS RHYTHM PROTOCOL: LEXISCAN EXERCISE TIME: 3:30 B.P. AT PEAK STRESS: 153/86 IMPRESSION: LEXISCAN INJECTED FOLLOWED BY CARDIOLITE PER PROTOCOL. SEE NUCLEAR MEDICINE REPORT. NO SUPRA VENTRICULAR TACHYCARDIA, VENTRICULAR TACHYCARDIA, PREMATURE ATRIAL COMPLEXES, PREMATURE VENTRICULAR COMPLEXES. PATIENT REPORTED 0/10 CHEST PAIN. NON DIAGNOSTIC EKG WITH LEXISCAN STRESS.
--- NOTE | 2018-11-24 20:29 | PN ---
Date of Progress Note: 11/23/2018 Chief Complaint: Diabetic kidney disease, hypertension, chronic kidney disease stage 3. History: The patient presented to the hospital because of generalized weakness. She has multiple me dical problems including history of diabetes mellitus complicated by neuropathy and nephropathy. The patient has history of hypertension and hyperlipidemia. The patient was found to have elevated bloo d pressure, hypertensive emergency, and developed shortness of breath. She was found to have elevate d troponin. Cardiology consultation was requested for acute coronary syndrome. The patient is treat ed for fluid overload and congestive heart failure with diastolic dysfunction. Chest x-ray showed ca rdiomegaly with congestion. Review of Systems: The patient is feeling better. Denies fever, chills. Denies PND, orthopnea. Physical Examination: Vital Signs: Blood pressure 168/72, heart rate 63. Lungs: A few crackles at bases. Heart: S1, S2. There is a 2/6 systolic murmur left lower sternal border. Abdomen: Soft, benign. Extremities: 1+ edema. Laboratory Data: Sodium 143, potassium 3.6, bicarbonate 25, BUN 33, creatinine 1.8, calcium 8.1, gardenia sphorus 4.2. TSH 4.9. Urinalysis showed specific gravity 1.010, 2+ protein. Chest x-ray, cardiomeg shona and congestion. Impression And Plan: 1.Acute kidney injury on chronic kidney disease secondary to cardiorenal syndrome in setting of diab etic nephropathy. The patient is fluid overloaded, has hypervolemia. The patient will continue diur esis for cardiorenal syndrome and congestive heart failure. The patient has underlying chronic kidne y disease with diabetic kidney disease that resulted in proteinuria. The patient will need to follow up in the clinic outpatient for further workup of proteinuria. The patient may require a renal biop sy. If proteinuria is not responding to medication adjustments, the patient may be a candidate for A CE inhibitor. Currently, she is taking losartan. The patient will continue losartan for the diabeti c kidney disease, chronic kidney disease. In view of acute kidney injury secondary to cardiorenal sy ndrome continue furosemide. Adjust the furosemide dose according to fluid balance. 2.Non-ST elevation myocardial infarction with congestive heart failure. Treatment per Cardiology. EB/MODL Voice ID: [id number] Report ID: [id number]
[2018-11-26 22:02] LABS: Vitamin D 1,25-Dihydroxy Total 22 pg/mL (18-72); Vitamin D,1,25-OH2, D2 <8 pg/mL
[2018-11-26 22:33] LABS: Albumin, (SPE) 2.6 g/dL (3.8-4.8); Alpha-1-Globulins 0.3 g/dL (0.2-0.3); Alpha-2-Globulins 0.7 g/dL (0.5-0.9); Gamma Globulins 0.6 g/dL (0.8-1.7); INTERPRETATION REPORT
== END 2018-11-23 20:05 | disposition home or self-care (01) | DRG 682 ==
LOC: ER 13:25 → 4TH 17:20
PROVIDERS: ADMIT Internal Medicine; ATTEND Family Medicine
DX: N17.9 Acute kidney failure, unspecified (principal); I50.33 Acute on chronic diastolic (congestive) heart failure; I13.0 Hypertensive heart and chronic kidney disease with heart failure and stage 1 through stage 4 chronic kidney disease, or unspecified chronic kidney disease; I16.1 Hypertensive emergency; E11.22 Type 2 diabetes mellitus with diabetic chronic kidney disease; E11.65 Type 2 diabetes mellitus with hyperglycemia; N18.3 Chronic kidney disease, stage 3 (moderate); E11.40 Type 2 diabetes mellitus with diabetic neuropathy, unspecified; E78.2 Mixed hyperlipidemia; Z23 Encounter for immunization
CPT/HCPCS: 36415; 71045; 76770; 78452; 80048; 80053; 80061; 80069; 80076; 81003; 81015; 82553; 82570; 82652; 82728; 82746; 82962; 83540; 83735; 83880; 83970; 84100; 84156; 84165; 84439; 84443; 84466; 84484; 84550; 85025; 85044; 85610; 85730; 93005; 93017; 93306; 94760; 96365; 96367; 96375; 99285; A9500; J0360; J1650; J1940; J2785

== ENCOUNTER 2019-09-18 15:59 | Emergency (ER) | payer OTHER, SELFPAY ==
--- OUTSIDE RECORDS SUMMARY | 2019-09-18 16:01 | XMS REPORT ---
:1950 Author Organization [facility] Address [address] [place] [address] Care Team Providers Name Role Phone Unavailable Unavailable Unavailable Problems This patient has no known problems. Allergies, Adverse Reactions, Alerts This patient has no known allergies or adverse reactions. Medications This patient has no known medications.
[2019-09-18 18:32] LABS: Absolute Lymphocytes (CBC) 1.6 K/uL (0.7-4.9); Basophils % 1.1 % (0-1.3); Hematocrit 36.2 % (36.0-45.0); MPV 9.8 fL (7.6-11.3)
--- NOTE | 2019-09-18 19:46 | RAD REPORT ---
EXAM DESCRIPTION: RAD - Chest Pa And Lat (2 Views) - 09/18/2019 7:35 pm CLINICAL HISTORY: pedal edema, shortness of breath COMPARISON: Portable November 2018 TECHNIQUE: Frontal and lateral views of the chest were obtained. FINDINGS: The lungs are slightly underinflated. Bilateral lung base atelectasis present there is a m oderately large left-side and small right-sided pleural effusion. Pattern is not substantially differ ent from the comparison study. Heart size is normal and central vasculature is within normal limits . No pneumothorax. No acute bony finding noted. No aortic abnormality. IMPRESSION: Moderately large left pleural effusion and small right pleural effusion similar to ishmael rison. Bilateral lung base atelectasis.
[2019-09-18] MEDS ORDERED: FUROSEMIDE 40 MG/4 ML VIAL ONE (20:03)
[2019-09-18] MEDS ORDERED: HYDRALAZINE HCL 20 MG/ML VIAL ONE (20:03)
--- NOTE | 2019-09-18 21:16 | ER ---
Nurse's Notes [facility] Name: Marilyn Cruz Age: 68 yrs Sex: Female : 1950 Arrival Date: 09/18/2019 Time: 16:03 Bed 17 Private MD: Diagnosis: Edema, unspecified-bilateral pedal edema;Essential (primary) hypertension Presentation: 09/17 16:27 Chief complaint: Patient states: HTN and swelling to bilateral lower extremities that dm5 began 3-4 days ago. Coronavirus screen: The patient has NOT traveled to a country currently being monitored by the [facility] within the last 14 days. Proceed with normal triage procedures. Ebola Screen: Patient denies exposure to infectious person. Patient denies travel to an Ebola-affected area in the 21 days before illness onset. Initial Sepsis Screen: Does the patient meet any 2 criteria? No. Patient's initial sepsis screen is negative. Does the patient have a suspected source of infection? No. Patient's initial sepsis screen is negative. Risk Assessment: Do you want to hurt yourself or someone else? Patient reports no desire to harm self or others. 16:27 Method Of Arrival: Ambulatory dm5 16:27 Acuity: JAKOB 2 dm5 Historical: - Allergies: 16:31 INSULINS; dm5 - Home Meds: 19:03 losartan-hydrochlorothiazide 50-12.5 mg oral tab [Active]; glipizide 10 mg Oral tab jl7 [Active]; - PMHx: 16:31 CHF; Diabetes - NIDDM; Hypertension; dm5 - PSHx: 16:31 None; dm5 - Immunization history:: Adult Immunizations up to date. - Social history:: Smoking status: Patient denies any tobacco usage or history of. Screenin:53 Abuse screen: Denies threats or abuse. Denies injuries from another. Nutritional jl7 screening: No deficits noted. Tuberculosis screening: No symptoms or risk factors identified. Fall Risk IV access (20 points). Total Meyers Fall Scale indicates No Risk (0-24 pts). Assessment: 18:53 General: Appears in no apparent distress. uncomfortable, Behavior is calm, cooperative, jl7 appropriate for age. Pain: Denies pain. Neuro: Level of Consciousness is awake, alert, obeys commands, Oriented to person, place, time, situation. Cardiovascular: Patient's skin is warm and dry. Edema is 2+ to left toes and right toes. Respiratory: Airway is patent Respiratory effort is even, unlabored, Respiratory pattern is regular, symmetrical. Derm: Skin is pink, warm \T\ dry. 20:00 Reassessment: Patient and/or family updated on plan of care and expected duration. Pain vc level reassessed. Patient is alert, oriented x 3, equal unlabored respirations, skin warm/dry/pink. 21:00 Reassessment: Patient and/or family updated on plan of care and expected duration. Pain vc level reassessed. Patient is alert, oriented x 3, equal unlabored respirations, skin warm/dry/pink. Patient denies pain at this time. 21:30 Reassessment: Patient states she does not want to go home. MD notified and present at bedside. Vital Signs: 16:27 BP 226 / 72; Pulse 71; Resp 16; Temp 97.3(TE); Pulse Ox 96% on R/A; Weight 77.11 kg; dm5 Height 5 ft. 1 in. (154.94 cm); Pain 0/10; 18:30 BP 226 / 82; Pulse 67; Resp 17; Pulse Ox 95% on R/A; vc 19:00 BP 219 / 70; Pulse 63; Resp 18; Pulse Ox 96% on R/A; vc 20:00 BP 174 / 55; Pulse 66; Resp 18; Pulse Ox 95% on R/A; vc 21:00 BP 162 / 63; Pulse 84; Resp 17; Pulse Ox 97% on R/A; vc 16:27 Body Mass Index 32.12 (77.11 kg, 154.94 cm) dm5 ED Course: 16:03 Patient arrived in ED. mr 16:30 Triage completed. dm5 16:31 Arm band placed on left wrist. dm5 16:42 Magdy Loya NP is PHCP. pm1 16:42 Jerry Alejo MD is Attending Physician. pm1 16:43 Pablo Echols RN is Primary Nurse. jl7 18:00 Patient has correct armband on for positive identification. Placed in gown. Bed in low jl7 position. Call light in reach. Side rails up X 1. Pulse ox on. NIBP on. Warm blanket given. 18:00 No provider procedures requiring assistance completed. Initial lab(s) drawn, by ED jl7 staff, sent to lab. Inserted saline lock: 22 gauge in left antecubital area, using aseptic technique. Blood collected. 19:33 Chest Pa And Lat (2 Views) XRAY In Process Unspecified. EDMS 19:55 Dayana Potts, RN is Primary Nurse. vc 22:00 IV discontinued, intact, bleeding controlled, No redness/swelling at site. Pressure vc dressing applied. Administered Medications: 20:15 Drug: hydrALAZINE 10 mg Route: IV; Rate: calculated rate; Site: left antecubital; vc 20:15 Drug: Lasix 40 mg Route: IVP; Site: left antecubital; vc Outcome: 21:15 Discharge ordered by MD. pm1 22:00 Discharged to home ambulatory. vc 22:00 Condition: good 22:00 Discharge instructions given to patient, family, Instructed on discharge instructions, follow up and referral plans. Demonstrated understanding of instructions, follow-up care. 22:11 Patient left the ED. mw2 Signatures: Dispatcher [employer] EDMT Carolyn Alaniz, RN RN dm5 Jessica Wayne mr LoyaMagdy, LAMINATING PRESS OPERATOR LAMINATING PRESS OPERATOR pm1 Pablo Echols RN RN jl7 Trever Puri mw2 Dayana Potts, ILENE RN vc
--- NOTE | 2019-09-18 21:16 | EDPHYS ---
Physician Documentation [facility] Name: Marilyn Cruz Age: 68 yrs Sex: Female : 1950 Arrival Date: 09/18/2019 Time: 16:03 Bed 17 Private MD: ED Physician Jerry Alejo HPI: 09/17 17:36 This 68 yrs old Female presents to ER via Ambulatory with complaints of High pm1 Blood Pressure, Feet Swelling. 17:36 Onset: The symptoms/episode began/occurred 3 day(s) ago. Modifying factors: The pm1 symptoms are aggravated by activity. Associated signs and symptoms: Pertinent positives: pedal edema, Pertinent negatives: chest pain, headache, nausea, vomiting, shortness of breath. Severity of symptoms: in the emergency department the blood pressure is are actually worse. The patient has experienced similar episodes in the past, a few times. Historical: - Allergies: 16:31 INSULINS; dm5 - Home Meds: 19:03 losartan-hydrochlorothiazide 50-12.5 mg oral tab [Active]; glipizide 10 mg Oral tab jl7 [Active]; - PMHx: 16:31 CHF; Diabetes - NIDDM; Hypertension; dm5 - PSHx: 16:31 None; dm5 - Immunization history:: Adult Immunizations up to date. - Social history:: Smoking status: Patient denies any tobacco usage or history of. ROS: 17:36 Constitutional: Negative for fever, chills, and weight loss. pm1 17:36 Neck: Negative for injury, pain, and swelling, Abdomen/GI: Negative for abdominal pain, nausea, vomiting, diarrhea, and constipation, Back: Negative for injury and pain, MS/Extremity: Negative for injury and deformity, Skin: Negative for injury, rash, and discoloration, Neuro: Negative for headache, weakness, numbness, tingling, and seizure. 17:36 Cardiovascular: Positive for edema, Negative for chest pain, orthopnea, palpitations. 17:36 Respiratory: Negative for cough, shortness of breath, wheezing. Exam: 17:36 Constitutional: This is a well developed, well nourished patient who is awake, alert, pm1 and in no acute distress. Head/Face: Normocephalic, atraumatic. Neck: Trachea midline, no thyromegaly or masses palpated, and no cervical lymphadenopathy. Supple, full range of motion without nuchal rigidity, or vertebral point tenderness. No Meningismus. Chest/axilla: Normal chest wall appearance and motion. Nontender with no deformity. No lesions are appreciated. Respiratory: Lungs have equal breath sounds bilaterally, clear to auscultation and percussion. No rales, rhonchi or wheezes noted. No increased work of breathing, no retractions or nasal flaring. Abdomen/GI: Soft, non-tender, with normal bowel sounds. No distension or tympany. No guarding or rebound. No evidence of tenderness throughout. Back: No spinal tenderness. No costovertebral tenderness. Full range of motion. Skin: Warm, dry with normal turgor. Normal color with no rashes, no lesions, and no evidence of cellulitis. MS/ Extremity: Pulses equal, no cyanosis. Neurovascular intact. Full, normal range of motion. 17:36 Cardiovascular: Rate: normal, Rhythm: regular, Pulses: no pulse deficits are appreciated, Edema: pedal edema, that is mild. 17:36 Neuro: Orientation: is normal, Motor: is normal, moves all fours, Sensation: is normal, no obvious gross deficits. Vital Signs: 16:27 BP 226 / 72; Pulse 71; Resp 16; Temp 97.3(TE); Pulse Ox 96% on R/A; Weight 77.11 kg; dm5 Height 5 ft. 1 in. (154.94 cm); Pain 0/10; 18:30 BP 226 / 82; Pulse 67; Resp 17; Pulse Ox 95% on R/A; vc 19:00 BP 219 / 70; Pulse 63; Resp 18; Pulse Ox 96% on R/A; vc 20:00 BP 174 / 55; Pulse 66; Resp 18; Pulse Ox 95% on R/A; vc 21:00 BP 162 / 63; Pulse 84; Resp 17; Pulse Ox 97% on R/A; vc 16:27 Body Mass Index 32.12 (77.11 kg, 154.94 cm) dm5 MDM: 16:49 Patient medically screened. [facility] 19:43 Data reviewed: vital signs. Data interpreted: Pulse oximetry: on room air is 96 %. pm1 Interpretation: normal. 21:11 Counseling: I had a detailed discussion with the patient and/or guardian regarding: the pm1 historical points, exam findings, and any diagnostic results supporting the discharge/admit diagnosis, lab results, radiology results, the need for outpatient follow up, to return to the emergency department if symptoms worsen or persist or if there are any questions or concerns that arise at home. 21:11 ED course: Patient without any chest pain or shortness of breath. Blood pressure pm1 improved with medications given in the ER. Patient with asymptomatic pedal edema. Patient educated on need for follow up with PCP or farm loan inspector for further outpatient treatment. 21:11 Data reviewed: old medical records, prior labs reviewed including renal function. pm1 Patient at baseline lab test result(s). 09/17 17:25 Order name: CBC with Diff; Complete Time: 18:37 pm1 09/17 17:25 Order name: BMP; Complete Time: 18:52 pm1 09/17 19:07 Order name: Chest Pa And Lat (2 Views) XRAY; Complete Time: 19:49 pm1 09/17 17:25 Order name: EKG; Complete Time: 17:26 pm1 09/17 17:25 Order name: EKG - Nurse/Tech; Complete Time: 18:44 pm1 Administered Medications: 20:15 Drug: hydrALAZINE 10 mg Route: IV; Rate: calculated rate; Site: left antecubital; vc 20:15 Drug: Lasix 40 mg Route: IVP; Site: left antecubital; vc Disposition: 09/18/19 21:15 Discharged to Home. Impression: Edema, unspecified - bilateral pedal edema, Essential (primary) hypertension. - Condition is Stable. - Discharge Instructions: Hypertension, How to Take Your Blood Pressure, Ragh-wy-Wlia, DASH Eating Plan, Managing Your Hypertension, Peripheral Edema. - Medication Reconciliation Form, Thank You Letter, Antibiotic Education, Prescription Opioid Use form. - Follow up: Emergency Department; When: As needed; Reason: Worsening of condition. Follow up: Private Physician; When: 2 - 3 days; Reason: Recheck today's complaints, Continuance of care, Re-evaluation by your physician. - Problem is new. - Symptoms have improved. Addendum: 09/20/2019 09:25 Co-signature as Attending Physician, Jerry Alejo MD I agree with the assessment and c palm plan of care. Signatures: Dispatcher [employer] EDMS Carolyn Alaniz, RN RN dm5 Jerry Alejo MD MD cha Marinas, Patrick, DRIVER/GUIDE DRIVER/GUIDE pm1 Pablo Echols, RN RN jl7 Trever Puri mw2 Dayana Potts, RN RN vc Corrections: (The following items were deleted from the chart) 09/17 18:03 17:26 Chest Pa And Lat (2 Views)+RAD.RAD.BRZ ordered. [facility] 21:15 21:15 09/18/2019 21:15 Discharged to Home. Impression: Edema, unspecified - bilateral pm1 pedal edema. Condition is Stable. Forms are Medication Reconciliation Form, Thank You Letter, Antibiotic Education, Prescription Opioid Use. Follow up: Emergency Department; When: As needed; Reason: Worsening of condition. Follow up: Private Physician; When: 2 - 3 days; Reason: Recheck today's complaints, Continuance of care, Re-evaluation by your physician. Problem is new. Symptoms have improved. pm1 22:11 21:15 09/18/2019 21:15 Discharged to Home. Impression: Edema, unspecified - bilateral mw2 pedal edema; Essential (primary) hypertension. Condition is Stable. Forms are Medication Reconciliation Form, Thank You Letter, Antibiotic Education, Prescription Opioid Use. Follow up: Emergency Department; When: As needed; Reason: Worsening of condition. Follow up: Private Physician; When: 2 - 3 days; Reason: Recheck today's complaints, Continuance of care, Re-evaluation by your physician. Problem is new. Symptoms have improved. pm1
[2019-09-18 22:26] VITALS: TEMP 97.3
[2019-09-18 22:33] VITALS: BP 162/63; O2SAT 97
--- NOTE | 2019-09-19 09:14 | EKG ---
Test Date: 2019-09-18 Test Time: 18:48:39 Anesthetic Assistant: YOGESH MEASUREMENT RESULTS: Intervals: Rate: 66 NJ: 162 QRSD: 94 QT: 456 QTc: 478 [place]: P: 100 NJ: 162 QRS: 47 T: 182 INTERPRETIVE STATEMENTS: Normal sinus rhythm ST & T wave abnormality, consider inferolateral ischemia Prolonged QT Abnormal ECG Compared to ECG 11/21/2018 14:26:54 ST (T wave) deviation now present Prolonged QT interval now present T-wave abnormality no longer present Possible ischemia still present Electronically Signed On 09-19-19 09:13:22 CDT by Blaine Fernández
--- NOTE | 2019-09-20 06:56 | EKG ---
Test Date: 2019-09-18 Test Time: 18:25:34 Raised Printer: YOGESH MEASUREMENT RESULTS: Intervals: Rate: 70 NV: 168 QRSD: 90 QT: 438 QTc: 473 [place]: P: 97 NV: 168 QRS: 35 T: 179 INTERPRETIVE STATEMENTS: Normal sinus rhythm ST & T wave abnormality, consider inferolateral ischemia Prolonged QT Abnormal ECG Compared to ECG 11/21/2018 14:26:54 ST (T wave) deviation now present Prolonged QT interval now present T-wave abnormality no longer present Possible ischemia still present Electronically Signed On 09-20-19 06:55:04 CDT by Blaine Fernández
== END 2019-09-18 22:11 | disposition home or self-care (01) ==
LOC: ER 15:59
DX: I10 Essential (primary) hypertension (principal); R60.0 Localized edema; Z88.8 Allergy status to other drugs, medicaments and biological substances; E11.9 Type 2 diabetes mellitus without complications; I50.9 Heart failure, unspecified
CPT/HCPCS: 93005 ×2; 85025; 80048; 36415; 71046; 96375; 96374; 99284; J0360; J1940

== ENCOUNTER 2020-06-08 13:13 | Inpatient (IN) | payer OTHER, SELFPAY ==
--- OUTSIDE RECORDS SUMMARY | 2020-06-08 13:17 | XMS REPORT | Continuity of Care Document ---
:1950 Author Organization [facility] t Address [facility] [place] [address] Care Team Providers Name Role Phone Unavailable Unavailable Unavailable Problems This patient has no known problems. Allergies, Adverse Reactions, Alerts This patient has no known allergies or adverse reactions. Medications This patient has no known medications. Procedures This patient has no known procedures. Results This patient has no known results.
[2020-06-08] MEDS ORDERED: METOCLOPRAMIDE 10 MG/2mL INJ ONE (16:08)
[2020-06-08] MEDS ORDERED: DIPHENHYDRAMINE 50 MG/ML VIAL ONE (16:09)
[2020-06-08] MEDS ORDERED: NA CHLORIDE 0.9% 250 ML ONE (16:09)
[2020-06-08 16:10] LABS: Basophils % 0.5 % (0-1.3); Hematocrit 35.3 % (36.0-45.0); Lymphocytes % 17.3 % (15.3-44.8); MPV 9.8 fL (7.6-11.3)
[2020-06-08] MEDS ORDERED: HYDRALAZINE HCL 20 MG/ML VIAL ONE (16:10)
[2020-06-08 16:30] LABS: Albumin 2.5 g/dL (3.4-5.0); Bilirubin Direct 0.2 mg/dL (0-0.2); Bilirubin Total 0.6 mg/dL (0.2-1.0); Potassium 4.5 mmol/L (3.5-5.1); Protein, Total 6.9 g/dL (6.4-8.2)
--- NOTE | 2020-06-08 17:49 | RAD REPORT ---
EXAM DESCRIPTION: CT - Chest Abd Pelvis Wo Con - 06/08/2020 5:03 pm CLINICAL HISTORY: Chest and abdominal pain with vomiting COMPARISON: 2017 TECHNIQUE: Computed axial tomography of the chest, abdomen and pelvis was obtained. Oral contrast wa s given. IV contrast was not requested. All CT scans are performed using dose optimization technique as appropriate and may include automated exposure control or mA/KV adjustment according to patient size. FINDINGS: The evaluation of mediastinum, ny, vessels and solid organs is limited secondary to the lack of IV contrast administration Subcentimeter mediastinal and hilar lymph nodes probably reactive in nature Small to moderate bilateral pleural effusions. A pericardial effusion is not seen. Mild bilateral pulmonary opacities. The thyroid gland is mildly enlarged The liver, spleen, pancreas, adrenals and kidneys appear grossly normal There is no evidence of diverticulitis. A trace amount of pelvic ascites. Omental caking is present measuring approximately by 2 centimeters. Calcifications within the right o vary. Largest measures 8 millimeters 3.9 centimeter cystic mass within subcutaneous fat of posterior left lower pelvis Vague 18 millimeter structure within the uterine fundus. 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 Small to moderate bilateral pleural effusions with mild bilateral pulmonary. This may represent CHF o pacities Vague 18 millimeter structure within the uterine fundus. Further evaluation with ultrasound recommend ed
[2020-06-08] MEDS ORDERED: ASPIRIN 81 MG CHEWABLE TABLET ONE (18:16)
[2020-06-08] MEDS ORDERED: METOPROLOL TARTRATE 5 MG/5 ML INJ IV ONE (18:17)
--- NOTE | 2020-06-08 18:32 | ER ---
Nurse's Notes [facility] Name: Marilyn Cruz Age: 69 yrs Sex: Female : 1950 Arrival Date: 06/08/2020 Time: 13:16 Bed 16 Private MD: Diagnosis: Acute Kidney Injury;Hypertension;Elevated Troponin;Congestive Heart Failure;Dehydration Presentation: 06/08 13:21 Chief complaint: Patient states: Abdominal pain all over, N/V/D, loss of appetite x 2 ca1 weeks. Pt crying in triage. Coronavirus screen: Client denies travel out of the [place] in the last 14 days. diarrhea, nausea, vomiting. Client presents with at least one sign or symptom that may indicate coronavirus-19. Standard/surgical mask placed on the client. Provider contacted for isolation considerations. Ebola Screen: Patient negative for fever greater than or equal to 101.5 degrees Fahrenheit, and additional compatible Ebola Virus Disease symptoms Patient denies exposure to infectious person. Patient denies travel to an Ebola-affected area in the 21 days before illness onset. No symptoms or risks identified at this time. Initial Sepsis Screen: Does the patient meet any 2 criteria? No. Patient's initial sepsis screen is negative. Does the patient have a suspected source of infection? No. Patient's initial sepsis screen is negative. Risk Assessment: Do you want to hurt yourself or someone else? Patient reports no desire to harm self or others. Onset of symptoms was June 08, 2020. 13:21 Method Of Arrival: Wheelchair ca1 13:21 Acuity: JAKOB 2 ca1 Historical: - Allergies: 13:24 INSULINS; ca1 - Home Meds: 13:24 glipizide 10 mg Oral tab [Active]; losartan-hydrochlorothiazide 50-12.5 mg Oral tab ca1 [Active]; - PMHx: 13:24 CHF; Diabetes - NIDDM; Hypertension; ca1 - PSHx: 13:24 None; ca1 - Immunization history:: Adult Immunizations up to date, Flu vaccine is not up to date. - Social history:: Smoking status: Patient denies any tobacco usage or history of. Screenin:02 Abuse screen: Denies threats or abuse. Nutritional screening: No deficits noted. jd3 Tuberculosis screening: No symptoms or risk factors identified. Fall Risk IV access (20 points). Ambulatory Aid- None/Bed Rest/Nurse Assist (0 pts). Gait- Weak (10 pts.). Mental Status- Oriented to own ability (0 pts). Total Meyers Fall Scale indicates Low Risk Score (25-44 pts). Fall prevention measures have been instituted. Side Rails Up X 2 Placed close to Nursing Station Frequent Obs/Assesments occuring. Assessment: 16:00 General: Appears in no apparent distress. uncomfortable, Behavior is cooperative, zb anxious. Pain: Denies pain. Neuro: Level of Consciousness is awake, alert, obeys commands, Oriented to person, place, time, situation. Cardiovascular: Murmur present Capillary refill < 3 seconds in bilateral fingers Patient's skin is warm and dry. Respiratory: Airway is patent Respiratory effort is even, unlabored, Respiratory pattern is regular, symmetrical. GI: Abdomen is round non-distended, Bowel sounds present X 4 quads. Abd is soft and non tender X 4 quads. : No signs and/or symptoms were reported regarding the genitourinary system. EENT: No signs and/or symptoms were reported regarding the EENT system. Derm: Skin is intact, is healthy with good turgor, Skin is normal. Musculoskeletal: Circulation, motion, and sensation intact. Range of motion: intact in all extremities. 16:53 Reassessment: Patient appears in no apparent distress at this time. Patient and/or zb family updated on plan of care and expected duration. Pain level reassessed. Patient is alert, oriented x 3, equal unlabored respirations, skin warm/dry/pink. pt going to xray. 20:13 Reassessment: Patient appears in no apparent distress at this time. Patient and/or jd3 family updated on plan of care and expected duration. Pain level reassessed. Patient is alert, oriented x 3, equal unlabored respirations, skin warm/dry/pink. Patient states feeling better. 22:47 Reassessment: Patient appears in no apparent distress at this time. Patient and/or jd3 family updated on plan of care and expected duration. Pain level reassessed. Patient is alert, oriented x 3, equal unlabored respirations, skin warm/dry/pink. charting continues in [facility]. Vital Signs: 13:21 BP 222 / 88; Pulse 91; Resp 16 S; Temp 99.1(O); Pulse Ox 97% on R/A; Weight 77.11 kg ca1 (R); Height 5 ft. 1 in. (154.94 cm) (R); Pain 2/10; 18:00 BP 177 / 69; Pulse 87; Resp 17 S; Pulse Ox 95% on R/A; jd3 18:30 BP 177 / 56; Pulse 85; Resp 20 S; Pulse Ox 97% on R/A; jd3 20:00 BP 164 / 55; Pulse 83; Resp 16 S; Pulse Ox 97% on R/A; jd3 22:54 BP 183 / 68; Pulse 77; Resp 17 S; Temp 98.9(TE); Pulse Ox 95% on R/A; jd3 13:21 Body Mass Index 32.12 (77.11 kg, 154.94 cm) ca1 ED Course: 13:16 Patient arrived in ED. ag5 13:24 Triage completed. ca1 13:24 Arm band placed on right wrist. ca1 14:20 Triston Domínguez PA is PHCP. [facility] 14:20 Cahmp Rocha MD is Attending Physician. jmm 14:54 Ophelia Crockett, ILENE is Primary Nurse. rb3 15:45 Inserted saline lock: 20 gauge in left antecubital area, using aseptic technique. Blood jd3 collected. 16:01 Patient has correct armband on for positive identification. Placed in gown. Bed in low jd3 position. Call light in reach. Side rails up X 1. Adult w/ patient. satellite project site monitor on. Pulse ox on. NIBP on. 16:13 Brigitte Dunbar, RN is Primary Nurse. zb 17:02 CT Chest Abdomen Pelvis W/O Contrast In Process Unspecified. EDMS 18:30 Dru Persaud is Hospitalizing Provider. [facility] 22:55 No provider procedures requiring assistance completed. Patient admitted, IV remains in jd3 place. Administered Medications: 16:13 Not Given (Patient Refused): diphenhydrAMINE 25 mg IVP once jd3 16:13 Drug: Reglan 10 mg Route: IVP; Site: left antecubital; zb 17:00 Follow up: Response: No adverse reaction jd3 16:13 Drug: hydrALAZINE 10 mg Route: IV; Rate: calculated rate; Site: left antecubital; zb 17:00 Follow up: Response: No adverse reaction; IV Status: Completed infusion jd3 18:00 Drug: Metoprolol 5 mg Route: IVP; Site: left antecubital; jd3 19:00 Follow up: Response: No adverse reaction jd3 18:00 Drug: Aspirin Chewable Tablet 324 mg Route: PO; jd3 19:00 Follow up: Response: No adverse reaction jd3 18:58 Not Given (Other Intervention Used): Phenergan 12.5 mg IVP once rr5 18:58 Drug: Zofran (Ondansetron) 4 mg Route: IVP; Site: left antecubital; rr5 19:50 Follow up: Response: No adverse reaction jd3 Outcome: 18:31 Decision to Hospitalize by Provider. [facility] 22:56 Admitted to ER Hold. Please see [facility] for further documentation. jd3 22:56 Condition: stable 22:56 Instructed on the need for admit. 06/09 09:50 Patient left the ED. eb Signatures: Dispatcher [employer] EDMS Triston Domínguez PA PA jmm Davies, Jonathon RN RN jd3 Kacie Galloway Raymond, RN RN rr5 Reyna Pal RN RN ca1 Gaskin, Ajare ag5 Brown, Zipporah, RN RN zb Barber, Rebecca, ILENE RN rb3 Corrections: (The following items were deleted from the chart) 06/08 18:39 18:42 Aspirin Chewable Tablet 324 mg PO jd3 jd3 23:09 22:54 BP 183 / 68; Pulse 77bpm; Resp 17bpm; Spontaneous; Pulse Ox 95% RA; jd3 jd3 23:09 22:54 BP 183 / 68; Pulse 77bpm; Resp 17bpm; Spontaneous; Pulse Ox 95% RA; jd3 jd3
--- NOTE | 2020-06-08 18:32 | EDPHYS ---
Physician Documentation [facility] Name: Marilyn Cruz Age: 69 yrs Sex: Female : 1950 Arrival Date: 06/08/2020 Time: 13:16 Bed 16 Private MD: ED Physician Champ Rocha HPI: 06/08 14:49 This 69 yrs old Female presents to ER via Wheelchair with complaints of jmm Decreased Appetite, Nausea/Vomiting/Diarrhea. 14:49 The patient presents to the emergency department with vomiting, diarrhea. Onset: The jmm symptoms/episode began/occurred gradually, 2 week(s) ago. Possible causes: unknown. The symptoms are aggravated by food , The symptoms are alleviated by nothing. 16:09 Associated signs and symptoms: Pertinent negatives: abdominal pain, cough, shortness of jmm breath. Modifying factors:. Patient also complains of insomnia for the past 3 days. Denies abdominal pain. Patient will have diarrhea if eating. Denies recent travel or recent abx use.. Historical: - Allergies: 13:24 INSULINS; ca1 - Home Meds: 13:24 glipizide 10 mg Oral tab [Active]; losartan-hydrochlorothiazide 50-12.5 mg Oral tab ca1 [Active]; - PMHx: 13:24 CHF; Diabetes - NIDDM; Hypertension; ca1 - PSHx: 13:24 None; ca1 - Immunization history:: Adult Immunizations up to date, Flu vaccine is not up to date. - Social history:: Smoking status: Patient denies any tobacco usage or history of. ROS: 16:09 Constitutional: Negative for fever, chills, and weight loss, Cardiovascular: Negative jmm for chest pain, palpitations, and edema, Respiratory: Negative for shortness of breath, cough, wheezing, and pleuritic chest pain. 16:09 Abdomen/GI: Positive for nausea and vomiting, diarrhea. 16:09 Neuro: Positive for weakness. 16:09 All other systems are negative. Exam: 16:09 Head/Face: atraumatic. Eyes: EOMI, no conjunctival erythema appreciated ENT: Moist jmm Mucus Membranes Neck: Trachea midline, Supple Chest/axilla: Normal chest wall appearance and motion. Cardiovascular: Regular rate and rhythm. No edema appreciated Respiratory: Normal respirations, no respiratory distress appreciated Abdomen/GI: Non distended, soft Back: Normal ROM Skin: General appearance color normal MS/ Extremity: Moves all extremities, no obvious deformities appreciated, no edema noted to the lower extremities Neuro: Awake and alert, normal gait Psych: Behavior is normal, Mood is normal, Patient is cooperative and pleasant 16:09 Constitutional: The patient appears alert, awake, anxious. Vital Signs: 13:21 BP 222 / 88; Pulse 91; Resp 16 S; Temp 99.1(O); Pulse Ox 97% on R/A; Weight 77.11 kg ca1 (R); Height 5 ft. 1 in. (154.94 cm) (R); Pain 2/10; 18:00 BP 177 / 69; Pulse 87; Resp 17 S; Pulse Ox 95% on R/A; jd3 18:30 BP 177 / 56; Pulse 85; Resp 20 S; Pulse Ox 97% on R/A; jd3 20:00 BP 164 / 55; Pulse 83; Resp 16 S; Pulse Ox 97% on R/A; jd3 22:54 BP 183 / 68; Pulse 77; Resp 17 S; Temp 98.9(TE); Pulse Ox 95% on R/A; jd3 13:21 Body Mass Index 32.12 (77.11 kg, 154.94 cm) ca1 MDM: 14:49 Patient medically screened. [facility] 18:28 Data reviewed: vital signs, nurses notes. Counseling: I had a detailed discussion with jordan the patient and/or guardian regarding: the historical points, exam findings, and any diagnostic results supporting the discharge/admit diagnosis, lab results, the need for further work-up and treatment in the hospital. ED course: I discussed the patient with Mau Dunaway PA-C whom accepted the patient to Dr. Persaud's service. . 06/08 14:50 Order name: Basic Metabolic Panel; Complete Time: 16:32 [facility] 06/08 14:50 Order name: CBC with Diff; Complete Time: 16:20 [facility] 06/08 14:50 Order name: Hepatic Function; Complete Time: 16:32 [facility] 06/08 14:50 Order name: Lipase; Complete Time: 16:32 [facility] 06/08 14:50 Order name: Procalcitonin; Complete Time: 16:57 [facility] 06/08 14:50 Order name: Lactate; Complete Time: 16:32 [facility] 06/08 14:50 Order name: Blood Culture Adult (2) [facility] 06/08 15:00 Order name: Troponin (emerg Dept Use Only); Complete Time: 16:32 [facility] 06/08 18:53 Order name: COVID-19 8 06/09 02:39 Order name: Troponin I EDNM 06/09 05:38 Order name: SARS-COV-2 RT PCR EDNM 06/09 06:23 Order name: CBC with Automated Diff EDNM 06/09 06:25 Order name: Basic Metabolic Panel EDNM 06/09 06:26 Order name: Troponin I EDNM 06/08 14:50 Order name: IV Saline Lock; Complete Time: 15:52 [facility] 06/08 14:50 Order name: Labs collected and sent; Complete Time: 15:52 [facility] 06/08 15:00 Order name: EKG - Nurse/Tech; Complete Time: 15:18 [facility] 06/08 16:35 Order name: CT Chest Abdomen Pelvis W/O Contrast; Complete Time: 17:57 [facility] 06/08 17:58 Order name: EKG - Nurse/Tech; Complete Time: 18:11 [facility] 06/08 18:58 Order name: CONS Physician Consult EDNM 06/09 06:26 Order name: NT PRO-BNP EDNM 06/09 06:26 Order name: Lipid Profile EDNM 06/09 07:46 Order name: Hemoglobin A1c EDNM Administered Medications: 16:13 Not Given (Patient Refused): diphenhydrAMINE 25 mg IVP once jd3 16:13 Drug: Reglan 10 mg Route: IVP; Site: left antecubital; zb 17:00 Follow up: Response: No adverse reaction jd3 16:13 Drug: hydrALAZINE 10 mg Route: IV; Rate: calculated rate; Site: left antecubital; zb 17:00 Follow up: Response: No adverse reaction; IV Status: Completed infusion jd3 18:00 Drug: Metoprolol 5 mg Route: IVP; Site: left antecubital; jd3 19:00 Follow up: Response: No adverse reaction jd3 18:00 Drug: Aspirin Chewable Tablet 324 mg Route: PO; jd3 19:00 Follow up: Response: No adverse reaction jd3 18:58 Not Given (Other Intervention Used): Phenergan 12.5 mg IVP once rr5 18:58 Drug: Zofran (Ondansetron) 4 mg Route: IVP; Site: left antecubital; rr5 19:50 Follow up: Response: No adverse reaction jd3 Disposition: 06/10 08:34 Co-signature as Attending Physician, Champ Rocha MD I agree with the assessment and kdr plan of care. Disposition: 06/08/20 18:31 Hospitalization ordered by Dru Persaud for Inpatient Admission. Preliminary diagnosis are Acute Kidney Injury, Hypertension, Elevated Troponin, Congestive Heart Failure, Dehydration. - Bed requested for Intensive Care Unit. - Status is Inpatient Admission. eb - Condition is Stable. - Problem is new. - Symptoms are unchanged. Signatures: Dispatcher [employer] EDMS Diann Simon RN RN mw Rittger, Kevin, MD MD kdr Mickail, Joel, PA PA Eduardo Cavanaugh RN RN jd3 Kacie Galloway Raymond RN ILENE rr5 Reyna Pal RN RN ca1 Brown, Zipporah RN RN zb Corrections: (The following items were deleted from the chart) 06/08 16:09 14:49 The symptoms are aggravated by food , The symptoms are alleviated by nothing. [facility] 19:40 18:31 Hospitalization Ordered by Dru Persaud for Inpatient Admission. Preliminary diagnosis is Acute Kidney Injury; Hypertension; Elevated Troponin; Congestive Heart Failure; Dehydration. Bed requested for Telemetry/MedSurg (Inpatient). Status is Inpatient Admission. Condition is Stable. Problem is new. Symptoms are unchanged. [facility] 06/09 05:51 06/08 19:40 06/08/2020 18:31 Hospitalization Ordered by Dru Persaud for Inpatient mw Admission. Preliminary diagnosis is Acute Kidney Injury; Hypertension; Elevated Troponin; Congestive Heart Failure; Dehydration. Bed requested for [facility] ER HOLD. Status is Inpatient Admission. Condition is Stable. Problem is new. Symptoms are unchanged. 06/09 09:50 05:51 06/08/2020 18:31 Hospitalization Ordered by Dru Persaud for Inpatient eb Admission. Preliminary diagnosis is Acute Kidney Injury; Hypertension; Elevated Troponin; Congestive Heart Failure; Dehydration. Bed requested for Intensive Care Unit. Status is Inpatient Admission. Condition is Stable. Problem is new. Symptoms are unchanged.
[2020-06-08] MEDS ORDERED: PROMETHAZINE INJ 25 MG/ML AMP ONE (19:08)
[2020-06-08] MEDS ORDERED: ONDANSETRON 4 MG/2 ML VIAL ONE (19:10)
[2020-06-08 23:32] VITALS: BMI 32.1
[2020-06-09] MEDS ORDERED: MORPHINE 4 MG/ML SYR IV PRN (00:30)
[2020-06-09] MEDS ORDERED: ONDANSETRON 4 MG/2 ML VIAL IV PRN (00:30)
[2020-06-09] MEDS ORDERED: ACETAMINOPHEN 500 MG TAB PO PRN (00:30)
[2020-06-09] MEDS ORDERED: ENOXAPARIN 80 MG/0.8 ML SQ SCH (00:30)
[2020-06-09] MEDS ORDERED: hydrOXYzine HCL 25 MG TAB ONE (01:48)
[2020-06-09] MEDS ORDERED: hydrOXYzine HCL 25 MG TAB PO ONE (01:56)
--- NOTE | 2020-06-09 02:11 | P.HP ---
Certification for Inpatient Patient admitted to: Inpatient With expected LOS: >2 Midnights Patient will require the following post-hospital care: None Practitioner: I am a practitioner with admitting privileges, knowledge of patient current condition, hospital course, and medical plan of care. Services: Services provided to patient in accordance with Admission requirements found in Title 42 Section 412.3 of the Code of Federal Regulations <Tj Dunaway - Last Filed: 06/09/20 02:06> Patient History Date of Service: 06/09/20 Primary Care Provider: [facility] Reason for admission: Acute Kidney Injury, CHF, Intractable N/V/D History of Present Illness: This is a 69-year-old female with a history of congestive heart failure mellitus, hypertension that is noncompliant with her medications. Occasionally sees [facility] for her medical complaints as needed. Patient stated that over the past couple weeks she has had decreased appetite with increase in nausea vomiting and diarrhea. Denies sick contacts or recent travel. Stated that it started about 2 weeks ago and has been unrelieved. Patient was worked up in the emergency room today including blood work, EKG and CT chest abdomen and pelvis. Patient was found to have elevated troponin 0.30, chest x-ray showed moderate bilateral pleural effusions with a pasty suggestive congestive heart failure. Patient was also found to have a creatinine of 3.32 and a BUN of 30 which is double from what was seen in her last labs from previous visits. CTA of the chest abdomen pelvis showed 18 mm uterine mass and some omental caking but no defined cancer source. Medicine was consulted at that time for further workup and admission. Home medications list reviewed: Yes - Past Medical/Surgical History Diabetic: Yes -: DM -: HTN -: CHF -: CSections - Family History Father -: Other (see notes) Notes: father fell and fractured hip Mother -: Lung disease - Social History Smoking Status: Never smoker Smoking therapy provided: No Alcohol use: No CD- Drugs: No Caffeine use: Yes Place of Residence: Home <Francia Dunawayshua - Last Filed: 06/09/20 02:06> Date of Service: 06/09/20 <oneyda massey - Last Filed: 06/09/20 12:08> Allergies Insulins Adverse Reaction (Verified 11/21/18 18:12) Nausea/Vomiting Home Medications: Hydralazine [Apresoline*] 25 mg PO BID 07/19/18 Furosemide 40 mg PO BID 11/21/18 Losartan Potassium 100 mg PO DAILY 11/21/18 Glipizide [Glipizide ER] 10 mg PO DAILY 11/22/18 Review of Systems General: Unremarkable Eyes: Unremarkable ENT: Unremarkable Respiratory: Shortness of Breath Cardiovascular: Unremarkable Gastrointestinal: Nausea, Vomiting, Diarrhea Genitourinary: Unremarkable Musculoskeletal: Unremarkable Integumentary: Unremarkable Neurological: Unremarkable Lymphatics: Unremarkable <Tj Dunaway - Last Filed: 06/09/20 02:06> Physical Examination - Vital Signs Temperature: 99.1 F Blood Pressure: 222/88 Pulse: 91 Respirations: 16 Pulse Ox (%): 97 (Room air) - Physical Exam General: Alert, In no apparent distress, Oriented x3, Cooperative HEENT: PERRLA, Mucous membr. moist/pink, EOMI Neck: Supple, 2+ carotid pulse no bruit, No Thyromegaly Respiratory: Crackles/rales (Bibasilar) Cardiovascular: No edema, Normal pulses, Regular rate/rhythm, Normal S1 S2, No gallops, No rubs, No murmurs Capillary refill: <2 Seconds Gastrointestinal: Normal bowel sounds, Soft and benign, Non-distended, No ascites, No tenderness, No masses, No rebound, No guarding Musculoskeletal: No clubbing, No swelling, No contractures, No erythema, No tenderness, No warmth Integumentary: No rashes, No breakdown, No significant lesion, No te nderness/swelling, No erythema, No warmth, No cyanosis Neurological: Normal speech, Normal strength at 5/5 x4 extr, Normal tone, Sensation intact, Cranial nerves 3-12 intact, Normal affect Lymphatics: No axilla or inguinal lymphadenopathy - Studies Laboratory Data (last 24 hrs) 06/08/20 15:45: WBC 5.9, Hgb 12.1, Hct 35.3 L, Plt Count 181 06/08/20 15:45: Sodium 141, Potassium 4.5, BUN 30 H, Creatinine 3.32 H, Glucose 83, Total Bilirubin 0.6, AST 28, ALT 20, Alkaline Phosphatase 79, Lipase 126 <Tj Dunaway - Last Filed: 06/09/20 02:06> - Studies Laboratory Data (last 24 hrs) 06/08/20 15:45: WBC 5.9, Hgb 12.1, Hct 35.3 L, Plt Count 181 06/08/20 15:45: Sodium 141, Potassium 4.5, BUN 30 H, Creatinine 3.32 H, Glucose 83, Total Bilirubin 0.6, AST 28, ALT 20, Alkaline Phosphatase 79, Lipase 126 <oneyda massey - Last Filed: 06/09/20 12:08> Assessment and Plan - Problems (Diagnosis) (1) Diarrhea Current Visit: Yes Status: Acute Plan: Patient has had persistent diarrhea for the last couple weeks. We are checking a COVID on patient and have sent of for c-diff. Will continue to monitor patient's hydration status 2nd to persistent diarrhea. Qualifiers: Diarrhea type: unspecified type Qualified Code(s): R19.7 - Diarrhea, unspecified (2) Intractable nausea and vomiting Current Visit: Yes Status: Acute Plan: Patient will be given nausea medicine as needed for nausea and vomiting. (3) KEY (acute kidney injury) Current Visit: No Status: Acute Plan: Patient does have chronic renal insufficiency but is markedly elevated when compared to labs today. Patient does not have a 20-1 or greater ratio. Most likely this is going to be prerenal azotemia secondary to congestive heart failure although we will consider dehydration secondary to the nausea vomiting and diarrhea. Nephrology has been consulted for further workup and evaluation of this. (4) Pleural effusion Current Visit: No Status: Acute Plan: Patient has bilateral pleural effusions that are most likely transudative in nature secondary to congestive heart failure. Patient will be started on Lasix to help improve this. Will continue to monitor patient's respiratory status to ensure that she is improving and not getting worse. (5) CHF (congestive heart failure) Onset Date: 04/01/18 Current Visit: No Status: Chronic Plan: Patient known congestive heart failure now with bilateral pleural effusions and mild shortness of breath. Patient has been started and will continue to be on Lasix for the duration over stayed to ensure that this improves. Will consult cardiology as well. Qualifiers: Heart failure type: diastolic Heart failure chronicity: acute Qualified Code(s): I50.31 - Acute diastolic (congestive) heart failure (6) Diabetes mellitus Current Visit: No Status: Chronic Plan: Patient had only mild increase in blood glucose level upon admission. Will continue to monitor this closely. Normally only takes oral hypoglycemics. Qualifiers: Diabetes mellitus type: type 2 Diabetes mellitus correction insulin use: without terminal operations supervisor use Diabetes mellitus complication status: with hyperglycemia Qualified Code(s): E11.65 - Type 2 diabetes mellitus with hyperglycemia (7) Elevated troponin Onset Date: 04/01/18 Current Visit: No Status: Chronic Plan: Patient does have mild elevation in troponin which she has had in the past. This is most likely secondary to cardio renal processes. We will consult Cardiology to ensure that they do not want to do anything else. (8) Hypertension Current Visit: No Status: Chronic Plan: Patient has chronic hypertension. Will control blood pressures with IV hydralazine as needed for systolic blood pressures greater than 160 and diastolic blood pressures greater than 110. Qualifiers: Hypertension type: essential hypertension Qualified Code(s): I10 - Essential (primary) hypertension Discharge Plan: Home Plan to discharge in: Greater than 2 days - Advance Directives Does patient have a Living Will: No Does patient have a Durable POA for Healthcare: No - Code Status/Comfort Care Code Status Assessed: Yes Code Status: Full Code Critical Care: No Time Spent Managing Pts Care (In Minutes): 70 <Tj Dunaway - Last Filed: 06/09/20 02:06> Physician Review: Patient Assessed, Agree with Above Assessment and Plan Physician Review Additional Text: COVID 19 infection. Enteritis. 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 Uterine lesion. Acute on chronic kidney disease stage 3 Plan: Supportive measures IV hydration Stool studies. Check stool for C. diff. Nephrology consult. <oneyda massey - Last Filed: 06/09/20 12:08>
[2020-06-09] MEDS ORDERED: ENOXAPARIN 80 MG/0.8 ML SQ ONE (02:14)
[2020-06-09] MEDS: HYDRALAZINE HCL 20 MG/ML VIAL IV PRN ×3 (05:45→18:19)
[2020-06-09] MEDS ORDERED: HYDRALAZINE HCL 20 MG/ML VIAL ONE (05:57)
[2020-06-09 06:04] LABS: Absolute Lymphocytes (CBC) 1.3 K/uL (0.7-4.9); Basophils % 0.6 % (0-1.3); Hematocrit 31.5 % (36.0-45.0); Lymphocytes % 21.8 % (15.3-44.8); MPV 10.1 fL (7.6-11.3); RBC Red Blood Cell Count 3.76 M/uL (3.86-4.86)
[2020-06-09 06:25] LABS: Potassium 4.1 mmol/L (3.5-5.1); Troponin I 0.3 ng/mL (0.0-0.045)
[2020-06-09] MEDS ORDERED: INFLUENZA VACCINE (for 3y+) 0.5 ML DOSE IMVAC ONE (09:00)
[2020-06-09] MEDS ORDERED: PNEUMOCOCCAL VACCINE 0.5 ML IMVAC ONE (09:00)
[2020-06-09] MEDS ORDERED: HYDRALAZINE HCL 20 MG/ML VIAL IV ONE (10:11)
[2020-06-09] MEDS: FUROSEMIDE 20 MG/ 2ML VIAL IV SCH ×2 (10:19→18:19)
--- NOTE | 2020-06-09 12:13 | P.PN ---
Subjective Date of Service: 06/09/20 Primary Care Provider: [facility] Chief Complaint: Acute Kidney Injury, CHF, Intractable N/V/D Patient noted to have epistaxis. She reports previous epistaxis in the past. She reports diarrhea frequency has significantly decreased. She denies shortness of breath. She has been afebrile. She denies any abdominal pain. Physical Examination - Vital Signs Temperature: 99.2 F Blood Pressure: 218/81 Pulse: 97 Respirations: 19 Pulse Ox (%): 94 - Studies Laboratory Data (last 24 hrs) 06/08/20 15:45: WBC 5.9, Hgb 12.1, Hct 35.3 L, Plt Count 181 06/08/20 15:45: Sodium 141, Potassium 4.5, BUN 30 H, Creatinine 3.32 H, Glucose 83, Total Bilirubin 0.6, AST 28, ALT 20, Alkaline Phosphatase 79, Lipase 126 Assessment And Plan - Current Problems (Diagnosis) (1) Acute worsening of stage 3 chronic kidney disease Current Visit: Yes Status: Acute (2) COVID-19 Current Visit: Yes Status: Acute (3) Diarrhea Current Visit: Yes Status: Acute Qualifiers: Diarrhea type: unspecified type Qualified Code(s): R19.7 - Diarrhea, unspecified (4) Pleural effusion Current Visit: No Status: Acute (5) Elevated troponin Onset Date: 04/01/18 Current Visit: No Status: Chronic (6) Omental mass Current Visit: Yes Status: Acute (7) Lesion of uterus Current Visit: Yes Status: Acute - Plan Patient getting IV Lasix. No obstructive uropathy per CT abdomen and pelvis result. Check FeNa. Nephrology consult is pending. Troponin trended flat. Cardiology input appreciated. ACS highly unlikely. Obtain pelvic ultrasound to follow uterine lesion. CT-guided Omental biopsy as an outpatient. Follow stool studies. Patient was given a shot of full-dose Lovenox for elevated troponin. Hold anticoagulation given epistaxis. Nasal packing if epistaxis persists. Physician Review: Patient Assessed, Agree with Above Assessment and Plan
--- NOTE | 2020-06-09 13:27 | RAD REPORT ---
EXAM DESCRIPTION: US - Transvaginal Study Probe - 06/09/2020 1:08 pm CLINICAL HISTORY: Uterine mass with omental caching Pelvic pain. COMPARISON: Chest Abd Pelvis Wo Con dated 06/08/2020 FINDINGS: The examination was technically challenging. Neither ovary could be well seen likely due to superimposed bowel gas or ovarian atrophy. No mass is seen in either adnexa. The uterus measures 6.6 x 3.7 x 2.9 cm. Small 15 mm fundal fibroid may be present. No significant pelvic ascites. IMPRESSION: Limited examination demonstrates a possible small fundal uterine fibroid.Neither ovary c ould be sonographically visualized you would due to bowel gas shadowing or atrophy.
--- NOTE | 2020-06-09 14:25 | ECHO ---
HEIGHT: 5 ft 1 in WEIGHT: 169 lb 15.622 oz DATE OF STUDY: 06/09/[address]: oneyda massey 2-DIMENSIONAL: YES M.MODE: YES DOPPLER: YES COLOR FLOW: YES TDS: PORTABLE: YES DEFINITY: BUBBLE STUDY: DIAGNOSIS: ELEVATED TROPONIN, CONGESTIVE HEART FAILURE CARDIAC HISTORY: CATHERIZATION: NO SURGERY: NO PROSTHETIC VALVE: NO PACEMAKER: NO MEASUREMENTS (cm) DIASTOLIC (NORMALS) SYSTOLIC (NORMALS) IVSd 1.3 (0.6-1.2) LA Diam 3.4 (1.9-4.0) LVEF 89% LVIDd 3.8 (3.5-5.7) LVIDs 1.6 (2.0-3.5) %FS 58% LVPWd 1.5 (0.6-1.2) Ao Diam 2.8 (2.0-3.7) 2 DIMENSIONAL ASSESSMENT: RIGHT ATRIUM: NORMAL LEFT ATRIUM: NORMAL RIGHT VENTRICLE: NORMAL LEFT VENTRICLE: LEFT VENTRICULAR HYPERTROPHY TRICUSPID VALVE: NORMAL MITRAL VALVE: NORMAL PULMONIC VALVE: NORMAL AORTIC VALVE: NORMAL PERICARDIAL EFFUSION: NONE AORTIC ROOT: NORMAL LEFT VENTRICULAR WALL MOTION: NORMAL EJECTION FRACTION DOPPLER/COLOR FLOW: MILD TRICUSPID REGURGITATION COMMENTS: LEFT VENTRICULAR HYPERTROPHY - DECREASED LEFT VENTRICULAR COMPLIANCE. MILD TRICUSPID REGURGITATION - NORMAL RIGHT VENTRICULAR SYSTOLIC PRESSURE. NORMAL EJECTION FRACTION. TECHNOLOGIST: SILVIA MCCLOUD
[2020-06-09] MEDS ORDERED: MELATONIN 5 MG TABLET PO SCH (21:00)
[2020-06-09] MEDS ORDERED: MELATONIN 5 MG TABLET PO ONE (21:24)
--- NOTE | 2020-06-09 21:38 | CON ---
Date of Consultation: 06/09/2020 Reason For Consultation: Acute renal failure and elevated troponin. History Of Present Illness: Ms. Cruz is a 69-year-old. She came in with complaint of decreased alec etite, nausea, vomiting, and diarrhea. She has a history of CHF, diabetes, hypertension, and renal i nsufficiency. She was found to have elevated troponin. She denied any chest pain. She denied any P ND, orthopnea, pedal edema, palpitations, or syncope. Allergies: SHE IS ALLERGIC TO INSULIN. Medications: Glipizide, Hyzaar. Review of Systems: Negative. Social History: Negative. Family History: Noncontributory. Physical Examination: Vital Signs: When she came in, her blood pressure was 222/88 with a pulse of 91, O2 saturation was 9 7%. She was afebrile. She was found to be COVID positive and was going to go to the ICU. Rest of her physical examination done by Dr. Persaud was normal. Diagnostic Data: Creatinine of 3.21. Hemoglobin of 10.9. Troponin was 0.30. Her BNP was 21,525. Positive for lr. She had a CT scan of her abdomen and pelvis showing possible carcinomatosis. S he has small to moderate bilateral pleural effusion, possible CHF. She had a vague 18 mm structure w ithin the uterine fundus. Transvaginal ultrasound revealed a possible small fundal uterine fibroid. Impression And Plan: 1.Elevated troponin and BNP secondary to renal failure. Echocardiogram showed normal ejection fract ion, decreased left ventricular compliance, ejection fraction of 89%. 2.COVID positive. Unlikely any of their symptoms that are related to COVID. 3.Acute renal failure. Nephrology consultation should be obtained. We should avoid nonsteroidals. Consider discontinuing losartan with hydrochlorothiazide. No further cardiac workup from my standpoint. Her blood pressure needs to be much better controlled. I think addition of calcium channel placido such as amlodipine and/or beta-placido is in order. We will continue to follow on an as-needed basis. EDSON/RENÉ Voice ID: [id number] Report ID: [id number]
[2020-06-10 04:51] LABS: Absolute Lymphocytes (CBC) 1.4 K/uL (0.7-4.9); Basophils % 0.9 % (0-1.3); Hematocrit 31.2 % (36.0-45.0); Lymphocytes % 29.8 % (15.3-44.8); MPV 9.7 fL (7.6-11.3); RBC Red Blood Cell Count 3.72 M/uL (3.86-4.86)
[2020-06-10 05:14] LABS: Potassium 3.8 mmol/L (3.5-5.1)
[2020-06-10 05:31] LABS: Ferritin 488.8 ng/mL (8-388)
[2020-06-10] MEDS: HYDRALAZINE HCL 20 MG/ML VIAL IV PRN (05:53)
--- NOTE | 2020-06-10 11:27 | P.PN ---
Subjective Date of Service: 06/10/20 Primary Care Provider: [facility] Chief Complaint: Acute Kidney Injury, CHF, Intractable N/V/D Patient reports poor sleep. She denies any diarrhea or shortness of breath She denies any abdominal pain. Physical Examination - Vital Signs Temperature: 97.6 F Blood Pressure: 141/56 Pulse: 89 Respirations: 24 Pulse Ox (%): 90 - Physical Exam General: Alert, In no apparent distress HEENT: Mucous membr. moist/pink Respiratory: Clear to auscultation bilaterally, Normal air movement Cardiovascular: No edema, Regular rate/rhythm, Normal S1 S2 Gastrointestinal: Normal bowel sounds, Soft and benign Musculoskeletal: No swelling Integumentary: No rashes, No erythema Neurological: Other (Nonfocal) Assessment And Plan - Current Problems (Diagnosis) (1) Acute worsening of stage 3 chronic kidney disease Current Visit: Yes Status: Acute (2) COVID-19 Current Visit: Yes Status: Acute (3) Diarrhea Current Visit: Yes Status: Acute Qualifiers: Diarrhea type: unspecified type Qualified Code(s): R19.7 - Diarrhea, unspecified (4) Pleural effusion Current Visit: No Status: Acute (5) Elevated troponin Onset Date: 04/01/18 Current Visit: No Status: Chronic (6) Omental mass Current Visit: Yes Status: Acute (7) Lesion of uterus Current Visit: Yes Status: Acute - Plan Lasix discontinued No obstructive uropathy per CT abdomen and pelvis result. FeNa is pending. Nephrology input appreciated. Troponin trended flat. Cardiology input appreciated. ACS highly unlikely. Pelvic ultrasound: Uterine fibroid CT-guided Omental biopsy as an outpatient. Follow stool studies uncollected. Diarrhea resolved.
--- NOTE | 2020-06-10 14:14 | P.CNS ---
Date of Consult: 06/10/20 Reason for Consult: KEY Primary Care Provider: [facility] Chief Complaint: Acute Kidney Injury, CHF, Intractable N/V/D History of Present Illness: HPI A 69-year-old woman with a history of CKD IIIb/IV Cr 1.5 in 2018 and trending uo tp 2.1 in September of this year, DM, HTN , and CHF , non compliant with meds pt presented for insomnia , nausea and vomiting and diarrhea her Cr was 3,3 on admission and now elevated to 3.5 , abdominal CT showed uterine mass , but no hydronephrosis denied NSAID intake or contrast exposure recently Review of Systems: Head and Neck: No red eye. No ear pain. GI: nausea, vomiting and diarrhea a, but much improved : No polyuria, no dysuria, no hematuria. Body Mechanic Apprentice: Not applicable. Respiratory: No shortness of breath. Cardiovascular: No chest pain. Endocrine: No polydipsia. Skin: No rash. Neuro: Has neuropathy. Musculoskeletal: No back pain . Physical exam general: AAOX3, NAD Neck; Supple, No elevated JVD hear: RRR, normal S1,2 no murmur or rub Chest: CTAB, mild Rt basal rales Abdomen: Soft , Nt Extremities No edema A/p KEY on CKD IIIb/IV vs progressive CKD pt labs with progressively worsting RFT , likely due to poorly controlled DM and HTN Abd CT; no hydro tonya hold on lasix and IVF renal dose meds will hold losartan DM as per primary team HTN controlled now will stop losartan Uterine mass W/U as an OP Omental caking need to follow with surgery as an OP CHF hold lasix for now COVID gastroenteritis resolved now total time spent 30min Allergies Insulins Adverse Reaction (Verified 11/21/18 18:12) Nausea/Vomiting Home Medications: Hydralazine [Apresoline*] 25 mg PO BID 07/19/18 Furosemide 40 mg PO BID 11/21/18 Losartan Potassium 100 mg PO DAILY 11/21/18 Glipizide [Glipizide ER] 10 mg PO DAILY 11/22/18 - Past Medical/Surgical History Diabetic: Yes -: DM -: HTN -: CHF -: C-Sections - Family History Father Medical History: Other (see notes) Notes: father fell and fractured hip Mother Medical History: Lung disease - Social History Alcohol use: No CD- Drugs: No Caffeine use: Yes Place of Residence: Home Physical Examination Temp Pulse Resp BP Pulse Ox 97.7 F 69 14 125/61 100 06/10/20 12:00 06/10/20 12:00 06/10/20 12:00 06/10/20 12:00 06/10/20 12:00
--- NOTE | 2020-06-10 14:53 | P.DS ---
Admission Date: 06/08/20 Discharge Date: 06/10/20 Primary Care Provider: [facility] Disposition: ROUTINE DISCHARGE Discharge Condition: FAIR Reason for Admission: Acute Kidney Injury, CHF, Intractable N/V/D - Problems (1) Acute worsening of stage 3 chronic kidney disease Current Visit: Yes Status: Acute (2) COVID-19 Current Visit: Yes Status: Acute (3) Diarrhea Current Visit: Yes Status: Resolved Qualifiers: Diarrhea type: unspecified type Qualified Code(s): R19.7 - Diarrhea, unspecified (4) Pleural effusion Current Visit: No Status: Acute (5) Elevated troponin Onset Date: 04/01/18 Current Visit: No Status: Chronic (6) Omental mass Current Visit: Yes Status: Acute (7) Lesion of uterus Current Visit: Yes Status: Acute (8) Gastroenteritis Current Visit: Yes Status: Acute Brief History of Present Illness: 69-year-old Sudanese-speaking woman with a history of hypertension, diabetes and chronic kidney disease, reported noncompliance with medications, and occasionally utilizes is [facility] presented to the emergency department with a complaint of nausea and vomiting and diarrhea. Workup in the emergency department revealed elevated creatinine. CT abdomen and pelvis and chest demonstrated small to moderate bilateral pleural effusion, omental caking suggestive of peritoneal carcinomatosis and a lesion in the uterus. Patient tested positive for COVID 19. She was then admitted further management of COVID 19 gastroenteritis and acute renal failure. Hospital Course: Patient admitted to the medical floor. She was given Lasix for bilateral pleural effusion and pedal edema. The pedal edema resolved. Her serum creatinine was up to 3.5. Patient was evaluated by nephrology will suspect progressive chronic kidney disease. Pelvic ultrasound was performed which reported intrauterine fibroid. Patient will need outpatient CT-guided biopsy of the omentum to evaluate for cancer. Patient request to go home today. She will follow with Nephrology as an outpatient regarding her progressive kidney disease. She is also informed she will need a CT-guided biopsy and has been given referral to see general surgery assist with that. Nephrology recommended avoiding losartan and Lasix given the progressive kidney disease. Patient has moderate hypertension. Her losartan has been replaced with low dose amlodipine 5 mg daily. She will continue her usual dose hydralazine. Vital Signs/Physical Exam: Temp Pulse Resp BP Pulse Ox 97.7 F 69 14 125/61 100 06/10/20 12:00 06/10/20 12:00 06/10/20 12:00 06/10/20 12:00 06/10/20 12:00 General: Alert, In no apparent distress HEENT: Mucous membr. moist/pink Respiratory: Clear to auscultation bilaterally, Normal air movement Cardiovascular: No edema, Regular rate/rhythm, Normal S1 S2 Gastrointestinal: Normal bowel sounds, Soft and benign Musculoskeletal: No swelling Integumentary: No rashes, No erythema Neurological: Other (Nonfocal) Laboratory Data at Discharge: WBC 4.7 K/uL (4.3-10.9) D 06/10/20 03:50 Hgb 10.5 g/dL (12.0-15.0) L 06/10/20 03:50 Hct 31.2 % (36.0-45.0) L 06/10/20 03:50 Plt Count 221 K/uL (152-406) 06/10/20 03:50 Sodium 143 mmol/L (136-145) 06/10/20 03:50 Potassium 3.8 mmol/L (3.5-5.1) 06/10/20 03:50 BUN 35 mg/dL (7-18) H 06/10/20 03:50 Creatinine 3.59 mg/dL (0.55-1.3) H 06/10/20 03:50 Glucose 75 mg/dL (74-106) 06/10/20 03:50 Total Bilirubin 0.6 mg/dL (0.2-1.0) 06/08/20 15:45 AST 28 U/L (15-37) 06/08/20 15:45 ALT 20 U/L (12-78) 06/08/20 15:45 Alkaline Phosphatase 79 U/L (45-117) 06/08/20 15:45 Troponin I 0.30 ng/mL (0.0-0.045) H 06/09/20 04:34 Triglycerides 90 mg/dL (<150) 06/09/20 04:34 Cholesterol 106 mg/dL (<200) 06/09/20 04:34 HDL Cholesterol 53 mg/dL (40-60) 06/09/20 04:34 Cholesterol/HDL Ratio 2.00 06/09/20 04:34 Lipase 126 U/L (73-393) 06/08/20 15:45 Home Medications: Hydralazine [Apresoline*] 25 mg PO BID 07/19/18 Glipizide [Glipizide ER] 10 mg PO DAILY 11/22/18 Amlodipine [Norvasc*] 5 mg PO DAILY #30 tab 06/10/20 New Medications: Amlodipine [Norvasc*] 5 mg PO DAILY #30 tab Patient Discharge Instructions: You will need a CT guided biopsy of omentum in your abdomen to evaluate for cancer. Diet: ADA Activity: Ad ashely Followup: Khoi Ray MD [ACTIVE - CAN ADMIT] - 1-2 Weeks Jose Mina MD [ACTIVE - CAN ADMIT] - 1-2 Weeks (Omental cake) Unknown,U [Primary Care Provider] - 1 Week Time spent managing pt's care (in minutes): 33
[2020-06-10 15:34] VITALS: O2SAT 100
[2020-06-10 16:12] VITALS: BP 143/65; TEMP 97.5
--- NOTE | 2020-06-10 20:05 | EKG ---
Test Date: 2020-06-08 Test Time: 18:03:41 Machinist Linotype: SAMY MEASUREMENT RESULTS: Intervals: Rate: 98 CO: 176 QRSD: 86 QT: 382 QTc: 487 Pitcher: P: 64 CO: 176 QRS: -29 T: 142 INTERPRETIVE STATEMENTS: Sinus rhythm with premature atrial complexes Left ventricular hypertrophy with repolarization abnormality Abnormal ECG Compared to ECG 06/08/2020 17:51:25 Atrial premature complex(es) now present Left ventricular hypertrophy now present Early repolarization now present Sinus tachycardia no longer present Fusion complex(es) no longer present Ventricular premature complex(es) no longer present ST (T wave) deviation no longer present Myocardial infarct finding no longer present Electronically Signed On 06-10-20 20:01:57 STAFF PHYSICIAN by Blaine Fernández
--- NOTE | 2020-06-10 20:05 | EKG ---
Test Date: 2020-06-08 Test Time: 17:51:25 Power Bender Operator: SAMY MEASUREMENT RESULTS: Intervals: Rate: 107 OK: 156 QRSD: 80 QT: 440 QTc: 587 [place]: P: 110 OK: 156 QRS: -15 T: 27 INTERPRETIVE STATEMENTS: Sinus tachycardia with frequent premature ventricular complexes and fusion complexes Abnormal ECG Compared to ECG 09/18/2019 18:48:39 ARTIFACT IS PRESENT Electronically Signed On 06-10-20 20:02:44 PERCH MACHINE INSPECTOR by Blaine Fernández
[2020-06-10] MEDS ORDERED: HYDRALAZINE HCL 25 MG TABLET PO SCH (21:00)
[2020-06-11] MEDS ORDERED: LOSARTAN POTASSIUM 50 MG TABLET PO SCH (09:00)
== END 2020-06-10 16:24 | disposition home or self-care (01) | DRG 177 ==
LOC: ER 13:13 → ERHOLD 18:55 → 3RD-ICU 06-09 06:28
PROVIDERS: ADMIT Internal Medicine; ATTEND Internal Medicine
DX: U07.1 COVID-19 (principal); I50.31 Acute diastolic (congestive) heart failure; I13.0 Hypertensive heart and chronic kidney disease with heart failure and stage 1 through stage 4 chronic kidney disease, or unspecified chronic kidney disease; N17.9 Acute kidney failure, unspecified; A08.39 Other viral enteritis; N18.30 Chronic kidney disease, stage 3 unspecified; E11.22 Type 2 diabetes mellitus with diabetic chronic kidney disease; E11.65 Type 2 diabetes mellitus with hyperglycemia; E86.0 Dehydration; N85.9 Noninflammatory disorder of uterus, unspecified; R77.8 Other specified abnormalities of plasma proteins; Z88.8 Allergy status to other drugs, medicaments and biological substances; Z79.84 Long term (current) use of oral hypoglycemic drugs; Z91.14 Patient's other noncompliance with medication regimen; Z79.899 Other long term (current) drug therapy
CPT/HCPCS: 36415; 71250; 74176; 76830; 80048; 80061; 80076; 82728; 83036; 83605; 83690; 83880; 84145; 84484; 85025; 86140; 87040; 93005; 93306; 96365; 96375; 99285; J0360; J1200; J1940; J2405; J2550; J2765; J7050; U0003